=== PATIENT | female | born 1970 | race Caucasian/White ===

== ENCOUNTER 2017-03-28 10:05 | Emergency (ER) | payer MEDICAID, SELFPAY | END 2017-03-28 11:39 | disposition home or self-care (01) | PROVIDERS: Emergency Provider Nurse Practitioner; Visit Provider Nurse Practitioner | DX: J06.9 Acute upper respiratory infection, unspecified (principal) | CPT/HCPCS: 71020; 99201 ==

== ENCOUNTER → 2017-04-25 08:47 | Outpatient (CLI) | payer MEDICAID, SELFPAY ==
--- NOTE | 2017-04-25 08:51 | FL_ITS ---
FL upper GI w air HISTORY: ITS.REASON: HIATAL HERNIA ORDERING PHYSICIAN: You Baeza PATIENT AGE: 46 years COMPARISON: Previous chest CT of 10/27/2016 FINDINGS: There is a large hiatal hernia which contains most of the stomach. No obstruction is evident. No evidence of volvulus. No ulcer apparent.. FLUOROSCOPY TIME : 2 minutes and 22 seconds. IMPRESSION: Large left-sided diaphragmatic/hiatal hernia containing stomach. No acute finding.
== END ==
PROVIDERS: Family Provider Internal Medicine Adolescent Medicine; PCP Internal Medicine Adolescent Medicine; Visit Provider Surgery
DX: K44.9 Diaphragmatic hernia without obstruction or gangrene (principal)
CPT/HCPCS: 74247

== ENCOUNTER 2017-05-08 06:58 | Day surgery (SDC) | payer MEDICAID, SELFPAY ==
[2017-05-08] VITALS (9 sets, daily range): BP systolic 96–131; BP diastolic 50–81; PULSE 60–69; RESP 16–95; TEMP 36.5–36.7; O2SAT 90–98; BMI 31.4
--- NOTE | 2017-05-08 08:00 | HMH.SCOPE ---
- Procedure: Date: 05/08/17 Procedure Performed:: Esophagogastroduodenoscopy with biopsy Indications:: This is a 46-year-old female who has been referred to Dr. Bola Baeza at the [facility] for evaluation and management of a large symptomatic hiatal hernia. She presents for preoperative esophagogastroduodenoscopy. Performing Provider:: Mendoza Augustine MD Referring Provider:: Drs. Jean Carlos Adams and Bola Baeza Sedation:: IV sedation with 7 mg of Versed and 150 mcg of fentanyl Procedure:: After informed consent was obtained, the patient was taken to the endoscopy suite. IV sedation ensued after she was transferred to the left lateral decubitus position. The gastroscope was advanced. The gastroesophageal junction was at 34 cm. The stomach was entered. Minimal streaking gastritis was noted distally and a biopsy was obtained of the antrum. Retroflexion revealed a fairly large paraesophageal defect. Essentially no sliding component was noted, but the defect was adjacent to the gastroesophageal junction. No significant abnormality of the mucosa was noted within the proximal stomach. The pylorus was intubated. The duodenal mucosa appeared normal. The gastroscope was carefully removed and the patient was transferred to recovery. Findings:: Gastroesophageal junction at 34 cm Fairly large paraesophageal hernia with defect adjacent to the gastroesophageal junction Minimal streaking inflammation distally Specimens:: Antral biopsy Recommendations:: The patient will follow up in 1 week for review of pathology. The patient will follow up with Dr. Baeza for ongoing operative planning. Complications:: No immediate Estimated blood obtained (mL): 1
== END 2017-05-08 08:30 | disposition home or self-care (01) ==
LOC: OUTP 07:01
PROVIDERS: Family Provider Internal Medicine Adolescent Medicine; PCP Internal Medicine Adolescent Medicine; Visit Provider Surgery
PROC: 0DJ08ZZ Inspection of Upper Intestinal Tract, Via Natural or Artificial Opening Endoscopic (ICD-10-PCS; CPT 43235; principal; 2017-05-08 07:30)
DX: K44.9 Diaphragmatic hernia without obstruction or gangrene (principal); K29.70 Gastritis, unspecified, without bleeding
CPT/HCPCS: 43239; 94640; 99152

== ENCOUNTER → 2017-07-07 12:36 | Outpatient (CLI) | payer MEDICAID, SELFPAY ==
--- NOTE | 2017-07-07 | CT_ITS ---
CT abdomen pelvis w con CLINICAL INDICATION: Abdominal distention ITS.REASON: POST HERNIA REPAIR ORDERING PHYSICIAN: Sonia Jerez PATIENT AGE: 47 years COMPARISON: Radiograph of the same day, CT scan of 03/11/2009 TECHNIQUE: Axial images obtained with sagittal and coronal reformats. All CT scans at the facility use one or more dose reduction, viz: automated exposure control; ma/kV adjustment per patient size (including targeted exams where dose is matched to indication; i.e. head); or iterative reconstruction technique. PROCEDURE: IV Contrast: 75 mL's of Isovue-370 performed in conjunction with the chest CT Oral Contrast: None . FINDINGS: History is given of recent hernia repair. There is a moderate sized left-sided pleural effusion and may be somewhat loculated in the lung base. Loculated fluid is present posterior to the heart and a small amount of gas. These effusions account for the radiographic abnormality. The gas present within the collection posterior to the heart may be postsurgical. This does not have a typical appearance for an abscess. There is some fat density in the pleural space is well which could be from the previous surgery. A definite hernia is not identified. A PEG catheter is present. There has been prior cholecystectomy. The liver, spleen, adrenal glands, and pancreas are unremarkable. No intestinal obstruction or free air. There are some fluid-filled loops of small bowel lower abdomen and pelvis nonspecific. Small amount of subcutaneous gas is present within the abdominal wall and left lower quadrant likely residual from the previous surgery. There is a small amount fluid in the pelvis. There is some mild stranding of the mesenteric fat in the mid abdomen. This is nonspecific. IMPRESSION: 1. Status post left-sided diaphragmatic hernia repair and PEG tube placement. 2. Mild stranding of the fat in the left upper quadrant and midabdomen nonspecific and may be postsurgical in nature. Underlying inflammatory process cannot be excluded. 3. Small amount of residual soft tissue gas in the abdominal wall. 4. Moderate size left-sided pleural effusion with loculated fluid and small amount of gas posterior to the heart probably secondary to the previous hernia repair.
--- NOTE | 2017-07-07 12:48 | XR_ITS ---
XR chest 2V HISTORY: ITS.REASON: COUGH, FEVER,CHILLS, CP, S/P DIAPHRAGMATIC HERNIA REPAIR ORDERING PHYSICIAN: Sonia Jerez PATIENT AGE: 47 years COMPARISON: 03/28/2017 FINDINGS: There is increased density in the left lung base and may be related to residual elevated hemidiaphragm/hernia somewhat smaller than when compared to the previous exam. History is given as hernia repair and this may be related to postsurgical changes. Small amount of gas is present in this density in the left lower lungs. Please correlate with surgical history.. Consolidation is present in the left upper lobe anteriorly consistent with pneumonia. The right lung is clear. No acute bony anomalies. IMPRESSION: 1. Left upper lobe pneumonia. 2. Continued elevated left hemidiaphragm consistent with residual hernia versus postsurgical changes. Please correlate with surgical history. A small amount gas is present in this region which could be related to bowel postsurgical change versus underlying abscess. Chest CT with contrast may be of further value if clinically warranted
[2017-07-07 13:02] LABS: Basophils # 0.1 K/mm3 (0-0.2); Basophils % 0.4 % (0.1-2.0); Eosinophils # 0.3 K/mm3 (0.0-0.4); Eosinophils % 2.1 % (0.1-12.0); Hematocrit 44.3 % (37.0-47.0); Hemoglobin 14.3 g/dL (12.2-16.2); Lymphocytes # 1.2 K/mm3 (0.7-4.5); Lymphocytes % 9.4 K/mm3 (10-50); Mean Corpuscular HGB Conc 32.3 g/dL (31.8-35.4); Mean Corpuscular Hemoglobin 30.2 pg (27.0-31.2); Mean Corpuscular Volume 93.4 fl (81-99); Mean Platelet Volume 9.7 fl (7.4-10.4); Monocytes # 0.9 K/mm3 (0.1-1.0); Monocytes % 6.7 % (1.7-9.3); Neutrophils # 10.7 K/mm3 (1.8-7.8); Neutrophils % 81.4 % (37.0-80.0); Platelet Count 398 K/mm3 (142-424); Red Blood Count 4.75 M/mm3 (4.20-5.40); White Blood Count 13.1 K/mm3 (4.8-10.8)
[2017-07-07 13:37] LABS: D-Dimer 2480 ng/mL (0-400)
[2017-07-07 14:28] LABS: Anion Gap 13.5 mEq/L (5-15); Blood Urea Nitrogen 11 mg/dL (7-18); Carbon Dioxide 30 mmol/L (21.0-32.0); Chloride 100 mmol/L (98-107); Creatinine,Serum 1.07 mg/dL (0.55-1.02); Estimated Glomerular Filt Rate 55 ml/min (>60); GFR (African American) 66 ML/MIN (>60); Glucose 100 mg/dL (74-106); Potassium 4.5 mmoL/L (3.5-5.1); Sodium 139 mmol/L (136-145)
--- NOTE | 2017-07-07 14:40 | CT_ITS ---
CT angio chest HISTORY: Left-sided chest pain, recent surgery ITS.REASON: COUGH, CHEST PAIN ORDERING PHYSICIAN: Sonia Jerez PATIENT AGE: 47 years TECHNIQUE: Axial images obtained following the administration of 75 mL of Isovue 370 . Sagittal, and coronal reformatted images are also generated and reviewed. All CT scans at the facility use one or more dose reduction, viz: automated exposure control; ma/kV adjustment per patient size (including targeted exams where dose is matched to indication; i.e. head); or iterative reconstruction technique. COMPARISON: 10/27/2016 FINDINGS: No evidence of aortic aneurysm or dissection. No obvious pulmonary embolus. There is a large left-sided pleural effusion. There is a 1.8 cm spiculated nodule in the left upper lobe. There are scattered small nodular opacities in both lungs which could represent metastatic process or multiple inflammatory/infectious nodules. Increased soft tissue density is present in the left suprahilar region which is contiguous with the left upper lobe spiculated nodule consistent with adenopathy in the left hilum. The consolidation or volume loss in the left upper lobe medially has shown some very left. There does however remain consolidation in the left upper lobe centrally emanating from the left hilum. There are calcified nodes in the subcarinal region. Right hilar adenopathy is also noted.. IMPRESSION: 1. No evidence of pulmonary embolus or aortic aneurysm. 2. Left upper lobe 2 cm spiculated lesion associated with bilateral hilar adenopathy suspicious for lung cancer with hilar adenopathy. There are multiple small bilateral pulmonary nodules some of which are somewhat more prominent suspicious for metastatic disease. An infectious/inflammatory process is an additional consideration. Left upper lobe consolidation/volume loss also noted 3. Large left-sided pleural effusion
== END ==
PROVIDERS: PCP Internal Medicine Adolescent Medicine; Visit Provider Nurse Practitioner Family
DX: R07.9 Chest pain, unspecified (principal); R05 Cough; R50.9 Fever, unspecified; N28.9 Disorder of kidney and ureter, unspecified; Z87.19 Personal history of other diseases of the digestive system; Z98.890 Other specified postprocedural states; R79.89 Other specified abnormal findings of blood chemistry
CPT/HCPCS: 36415; 71046; 71275; 74177; 80048; 85025; 85378; Q9967

== ENCOUNTER → 2017-07-08 12:02 | Outpatient (POV) | payer MEDICAID, SELFPAY | PROVIDERS: Family Provider Internal Medicine Adolescent Medicine; PCP Internal Medicine Adolescent Medicine; Visit Provider Internal Medicine | DX: Z00.00 Encounter for general adult medical examination without abnormal findings (principal) ==

== ENCOUNTER → 2017-07-10 14:38 | Outpatient (CLI) | payer MEDICAID, SELFPAY ==
--- NOTE | 2017-07-10 14:41 | XR_ITS ---
XR chest 2V HISTORY: ITS.REASON: PLEURAL EFFUSION LEFT ORDERING PHYSICIAN: Sonia Jerez PATIENT AGE: 47 years COMPARISON: 07/07/2017 FINDINGS: Moderate size left-sided subpulmonic effusion once again noted with increasing density in the left lower lobe consistent with developing atelectasis or infiltrate. The effusion is slightly increased in size. The right lung is clear. Unremarkable cardiovascular structures. IMPRESSION: Moderate left-sided subpulmonic effusion increasing in size with left lower lobe atelectasis or infiltrate
== END ==
PROVIDERS: PCP Nurse Practitioner Family; Visit Provider Nurse Practitioner Family
DX: J90 Pleural effusion, not elsewhere classified (principal)
CPT/HCPCS: 71046

== ENCOUNTER → 2017-08-12 12:40 | Outpatient (POV) | payer MEDICAID, SELFPAY | PROVIDERS: Family Provider Internal Medicine Adolescent Medicine; PCP Nurse Practitioner Family; Visit Provider Internal Medicine | DX: Z00.00 Encounter for general adult medical examination without abnormal findings (principal) ==

== ENCOUNTER → 2017-10-06 09:35 | Outpatient (CLI) | payer MEDICAID, SELFPAY ==
[2017-10-06 10:40] VITALS: PULSE 71; PULSE 75
== END ==
PROVIDERS: Family Provider Internal Medicine Adolescent Medicine; PCP Nurse Practitioner Family; Visit Provider Internal Medicine
DX: J44.9 Chronic obstructive pulmonary disease, unspecified (principal)
CPT/HCPCS: 94060; 94640; 94726; 94729

== ENCOUNTER → 2017-11-13 09:31 | Outpatient (CLI) | payer MEDICAID, SELFPAY ==
--- NOTE | 2017-11-13 09:38 | XR_ITS ---
XR chest 2V HISTORY: ITS.REASON: COUGH, COPD, HX PLEURAL EFFUSION ORDERING PHYSICIAN: Sonia Jerez PATIENT AGE: 47 years COMPARISON: 07/10/2017 FINDINGS: The heart size is normal. Patchy density is present in the suprahilar region on both sides with prominence of the left hilum. Suspect a left hilar mass. Previously noted left pleural effusion is no longer apparent. There is however increased density in the left lung base abutting the hemidiaphragm and may be related to loculated effusion or mass or diaphragmatic elevation.. CT with contrast may be of further value. Please correlate with patient's history. There is COPD. No acute bony anomalies. IMPRESSION: Abnormal chest x-ray with prominent left hilum suspicious for hilar mass with suprahilar infiltrate on the left and possibly on the right along with increased density in the left lung base which could be related to hernia, mass, or loculated effusion. Consider chest and upper abdomen CT with IV and oral contrast
== END ==
PROVIDERS: PCP Internal Medicine Adolescent Medicine; Visit Provider Nurse Practitioner Family
DX: R05 Cough (principal); J44.9 Chronic obstructive pulmonary disease, unspecified; Z87.09 Personal history of other diseases of the respiratory system
CPT/HCPCS: 71046

== ENCOUNTER → 2018-03-10 12:26 | Outpatient (CLI) | payer MEDICAID, SELFPAY ==
[2018-03-10 13:14] LABS: Hemoglobin A1C 5.5 % (0.0-7.0)
[2018-03-10 14:50] LABS: Alanine Aminotransferase 38 U/L (12-78); Albumin Level 3.2 gm/dL (3.4-5.0); Alkaline Phosphatase 107 U/L (46-116); Anion Gap 12.2 mEq/L (5-15); Aspartate Amino Transferase 24 U/L (15-37); Bilirubin,Total 0.2 mg/dL (0.2-1.0); Blood Urea Nitrogen 6 mg/dL (7-18); Carbon Dioxide 30 mmol/L (21.0-32.0); Chloride 104 mmol/L (98-107); Estimated Glomerular Filt Rate 67 ml/min (>60); GFR (African American) 81 ML/MIN (>60); Globulin 3.2 gm/dl (1.3-3.2); Glucose 119 mg/dL (74-106); Potassium 4.2 mmoL/L (3.5-5.1); Sodium 142 mmol/L (136-145); Total Protein,Serum 6.4 gm/dL (6.4-8.2)
== END ==
PROVIDERS: PCP Nurse Practitioner Family; Visit Provider Internal Medicine Adolescent Medicine
DX: R35.8 Other polyuria (principal)
CPT/HCPCS: 36415; 80053; 83036

== ENCOUNTER → 2018-06-11 08:42 | Outpatient (CLI) | payer MEDICAID, SELFPAY ==
--- NOTE | 2018-06-11 08:44 | MM_ITS ---
MM Dig screening mamm BI w/CAD ORDERING PHYSICIAN : Shannon Germain MD PATIENT AGE: 48 years GENDER: Female COMPARISON: Bilateral mammogram studies from December 2013, October 2012 & 2011. INDICATION: .: Routine Screening Mammogram no hormones. No new complaints. Additional history of sarcoidosis noted. Family history. Maternal niece at age 25. paternal grandmother TECHNIQUE: Standard CC and MLO images were obtained. R2 CAD reviewed. Additional CC nipple profile views bilaterally along with a left MLO view including IMF FINDINGS: . . Low-density breast. Minimal residual Fibroglandular elements bilaterally. Moderate diffuse fatty replacement. No dominant nor suspicious mass. No suspicious calcifications. Benign calcifications left breast similar to previous studies. No new areas of significant concern. Areas of minimal density on one view dissipate on another in compatible with multiple previous studies.. Normal skin thickness. Bilaterally IMPRESSION: Stable negative bilateral mammogram. Low-density breast with no areas of concern. BI-RADS Category: 1 Negative RECOMMENDED FOLLOW-UP: 1YR 1 YEAR FOLLOW-UP (A letter has been sent to the patient regarding results of the study.)
== END ==
PROVIDERS: PCP Nurse Practitioner Family; Visit Provider Obstetrics & Gynecology
DX: Z12.31 Encounter for screening mammogram for malignant neoplasm of breast (principal)
CPT/HCPCS: 77067

== ENCOUNTER → 2018-06-29 11:44 | Outpatient (CLI) | payer MEDICAID, SELFPAY ==
--- NOTE | 2018-06-29 11:48 | XR_ITS ---
XR chest 2V HISTORY: ITS.REASON: COUGH, FEVER, CHILLS ORDERING PHYSICIAN: Sonia Jerez PATIENT AGE: 48 years Technique: PA and lateral chest COMPARISON: 11/13/2017 & 07/10/2017 FINDINGS: RIGHT CHEST Today's study shows additional density at the right suprahilar region and medial right upper lobe. Infiltrate density becomes most pronounced just inferior to the right clavicle on the frontal projection with given history this most likely a pneumonia but follow-up chest will be important to verify resolution exclude underlying lesion of the infiltrate obscures the right suprahilar region.. Suggest follow-up CT chest if is not been performed elsewhere over the past 2 or 3 months, particularly view suspect history of of left chest lesion.. My history was today was very incomplete but I would note Evidence of bilateral hilar adenopathy on previous June 2017 CT chest No pleural effusion on the right. The right ribs are intact LEFT CHEST. Postsurgical changes left lung. A long curvilinear line of yun/material seen extending from the upper to be lower mid lung field. No new findings otherwise at left chest. The previously prominent left jose appears smaller today than than 11/13/2017. Also a densities at the periphery of the left upper lobe no longer evident. No pleural effusions no significant new findings at the left chest. The left chest wall appears satisfactory. No pleural effusion no acute findings observed of the left chest. There is less than optimal inspiration with diaphragms of anterior fourth fifth rib bilaterally. Also note generous gas is seen within bowel loops at the upper abdomen mainly generous gas and large bowel loops but also some slight increased gas throughout small bowel. IMPRESSION...... 1. New Airspace disease right suprahilar region/RUL. This infiltrate & atelectasis extends from the right suprahilar region into the medial aspect of RUL Most likely reflecting pneumonia, but follow-up will be important to exclude underlying lesion. 2. Follow-up CT with contrast would be encouraged particularly with this patient's history, & particularly if this infiltrate density 3. Postsurgical changes left lung since October 2017. With this Left jose is smaller & seen density previously seen at L UL no longer evident . , When compared to Oct 2017 CXR.
== END ==
PROVIDERS: PCP Nurse Practitioner Family; Visit Provider Nurse Practitioner Family
DX: R05 Cough (principal); R50.9 Fever, unspecified
CPT/HCPCS: 71046

== ENCOUNTER → 2018-09-25 11:24 | Outpatient (CLI) | payer MEDICAID, SELFPAY ==
--- NOTE | 2018-09-25 11:31 | XR_ITS ---
XR chest 2V HISTORY: ITS.REASON: BRONCHITIS ORDERING PHYSICIAN: Rishi Alcantara MD PATIENT AGE: 48 years COMPARISON: 06/29/2018. FINDINGS: The cardiomediastinal silhouette and pulmonary vascularity are within normal limits. Stable left lung linear densities. There has been clearing of the density from the right suprahilar area. Right lung is now clear.. There is no pleural effusion or pneumothorax. No acute bony abnormalities. IMPRESSION: Interval clearing of the right suprahilar density. Left lung scar is still present. No other change or acute process.
== END ==
PROVIDERS: PCP Internal Medicine Adolescent Medicine; Visit Provider Internal Medicine Adolescent Medicine
DX: J40 Bronchitis, not specified as acute or chronic (principal)
CPT/HCPCS: 71046

== ENCOUNTER → 2018-10-12 09:30 | Outpatient (CLI) | payer MEDICAID, SELFPAY ==
--- NOTE | 2018-10-12 09:33 | CT_ITS ---
CT abdomen pelvis wo/w con CLINICAL INDICATION: Hematuria with frequent urination ITS.REASON: HEMATURIA ORDERING PHYSICIAN: Archie Majano MD PATIENT AGE: 48 years COMPARISON: 07/07/2017 TECHNIQUE: Contrast Used:75ml Optiray 350 Oral Contrast: None Axial images obtained without and with contrast with delayed images with sagittal and coronal reformats. All CT scans at the facility use one or more dose reduction, viz: automated exposure control, ma/kV adjustment per patient size (including targeted exams where dose is matched to indication, i.e. head), or iterative reconstruction technique. FINDINGS: There are mild atelectatic or fibrotic changes in the lung bases. Bowel interposition is noted on the right. There are postcholecystectomy changes. The spleen, adrenal glands, and pancreas have an unremarkable appearance. No renal or ureteral calculi. No hydronephrosis or ureteral dilatation. There is an isodensity involving the posterior aspect of the right kidney at 10 mm and may represent a renal cyst. This could be confirmed with ultrasound if clinically warranted this is slightly larger than when compared to 07/07/2017 at that time measuring 8 mm. No perinephric fluid collection. Urinary bladder has an unremarkable appearance. Unremarkable appendix. No intestinal obstruction or free air. There is a mild amount of retained colonic feces. There are fluid-filled loops of small bowel with a few scattered air-fluid levels nonspecific but could be seen with enteritis. No pelvic mass abnormal fluid collection or focal inflammatory change of the pelvis. There are mild degenerative changes of the hips and spine. IMPRESSION: 1. 10 mm isodense lesion right kidney which may be due to a small cyst slightly larger when compared to 07/07/2017. Cystic nature may be confirmed with ultrasound if clinically desired. The kidneys have an otherwise unremarkable appearance. 2. Mild amount of retained colonic feces with fluid-filled loops of small bowel nonspecific but may be seen with enteritis.
== END ==
PROVIDERS: PCP Nurse Practitioner Family; Visit Provider Urology
DX: R31.0 Gross hematuria (principal)
CPT/HCPCS: 74178; Q9967

== ENCOUNTER 2018-10-27 08:56 | Outpatient (CLI) | payer MEDICAID, SELFPAY ==
[2018-10-26 10:14] VITALS: BMI 37.8
[2018-10-27 09:25] VITALS: BP 119/72; PULSE 68; RESP 18; TEMP 36.6; O2SAT 95
[2018-10-27 10:54] VITALS: BP 121/77; PULSE 91; RESP 18; TEMP 36.5; O2SAT 96
--- NOTE | 2018-10-27 13:07 | HMH.OPNOTE ---
Date of procedure: 10/27/18 Pre-op Diagnosis:: Mixed urinary incontinence Post-op Diagnosis:: Mixed urinary incontinence with hypermobility of the bladder neck Procedure performed:: Flexible local cystoscopy Surgeon:: Archie Majano MD Anesthesia: local Estimated blood loss (mL): 0 Clinical Note:: Patient is here for cystoscopy for evaluation of mixed urinary incontinence. She was recently seen and given apples of Myrbetriq 25 mg. She states that that markedly improved her urgency symptoms. She still unfortunately has incontinence. She is here today for cystoscopy for further evaluation. He also had microscopic hematuria. Operative findings:: Genuine stress urinary incontinence secondary to hypermobility of the bladder neck Operative note:: Patient was placed in the supine position and frog leg. Genital area was prepped and draped in standard fashion. Xylocaine jelly was instilled. With Valsalva she has moderate cystourethrocele and hyper mobility. The flexible cystoscope was introduced. She had no significant cystocele endoscopically. Ureteral orifice ease were situated in the normal position and appeared to effluxed clear urine. Entire bladder mucosa was inspected. No evidence of bladder tumors. Bladder was filled and cystoscopy completed. 10. With cough she demonstrated a large amount of leakage and hypermobility of the bladder neck. Condition: stable Disposition: same day Complications:: None. We will increase her Myrbetriq to 50 mg. She will follow-up in 1 week to discuss potential treatment options including a suburethral sling.
== END 2018-10-27 11:01 | disposition home or self-care (01) ==
LOC: OUTP 08:56
PROVIDERS: PCP Nurse Practitioner Family; Visit Provider Urology
PROC: (CPT 52000; principal; 2018-10-27 10:00)
DX: N36.41 Hypermobility of urethra (principal); N39.46 Mixed incontinence
CPT/HCPCS: 52000

== ENCOUNTER → 2019-03-31 10:43 | Outpatient (CLI) | payer OTHER, SELFPAY | PROVIDERS: Visit Provider Internal Medicine Adolescent Medicine | DX: T14.8XXA Other injury of unspecified body region, initial encounter (principal) ==

== ENCOUNTER → 2019-04-15 11:22 | Outpatient (CLI) | payer OTHER, SELFPAY | PROVIDERS: Visit Provider Internal Medicine Adolescent Medicine | DX: R19.7 Diarrhea, unspecified (principal) | CPT/HCPCS: 87493 ==

== ENCOUNTER → 2019-09-16 11:41 | Outpatient (CLI) | payer OTHER, SELFPAY ==
--- NOTE | 2019-09-16 11:48 | XR_ITS ---
PROCEDURE: XR SHOULDER RT MIN 2V CLINICAL INDICATION: RT SHOULDER PAIN COMPARISON: No exams were available for comparison FINDINGS: The clavicle is intact and the AC joint appears normal. However there is a markedly down-sloping acromion process resulting in subacromial stenosis and a likely predisposition to impingement syndrome. The humeral head and glenoid appear normal. There are no soft tissue calcifications. 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 Sumeet Boswell MD 09/16/2019 13:[address] Sumeet Boswell MD in [place] 09/16/2019 13:45
== END ==
PROVIDERS: PCP Nurse Practitioner Family; Visit Provider Nurse Practitioner Family
DX: M25.511 Pain in right shoulder (principal)
CPT/HCPCS: 73030

== ENCOUNTER → 2019-09-22 13:44 | Outpatient (CLI) | payer OTHER, SELFPAY | PROVIDERS: PCP Nurse Practitioner Family; Visit Provider Nurse Practitioner Family | DX: G47.30 Sleep apnea, unspecified (principal); G47.00 Insomnia, unspecified; R51 Headache; I10 Essential (primary) hypertension | CPT/HCPCS: 95806 ==

== ENCOUNTER → 2019-09-30 10:24 | Outpatient (CLI) | payer OTHER, SELFPAY | PROVIDERS: PCP Nurse Practitioner Family; Visit Provider Nurse Practitioner Family | DX: I49.9 Cardiac arrhythmia, unspecified (principal) | CPT/HCPCS: 93225; 93226 ==

== ENCOUNTER 2019-10-18 15:00 | Outpatient (RCR) | payer OTHER, SELFPAY ==
--- NOTE | 2019-09-22 13:52 | HMH.OTOPEV ---
OT Inpatient Evaluation Rehab OT Outpatient Eval Start: 09/22/19 13:15 Freq: Status: Active Protocol: Document 09/22/19 13:16 WILL (Rec: 09/22/19 13:52 WILL [id number]) Electronically Signed By Shannon Urbano OT 09/22/19 13:16 Outpatient Therapy Subjective History Subjective History 49 year old female referred to OP OT services for R shoulder pain. Patient stated having R shoulder pain for the past month. Patient recieved x-ray on 09/16/19 finding were: Subacromial stenosis with findings suggesting a predisposition to impingement syndrome. Chief Complaint Pain Symptom Type Ache,Throb Symptoms Relieved By Nothing Symptoms Aggravated By Physical Activity Prior Functional Limitations None Current Functional Limitations Reaching,Lifting,Dressing Symptom Description Intermittent Level of pain today (0-10) 3 Pain scale - at its best (0-10) 3 Pain scale - at its worst (0-10) 5 Shoulder/Elbow Eval Shoulder Objective Measurements Shoulder ROM Right Shoulder Abduction Active Range of 98 Motion (degrees) Shoulder Flexion Active Range of Motion 120 (degrees) Query Text: Shoulder External Rotation Active Range 90 of Motion (degrees) Shoulder Internal Rotation Active Range 70 of Motion (degrees) pain with active ROM shoulder exam right standard Shoulder MMT Shoulder Horizontal Abduction Strength 3 Fair Grade Shoulder Horizontal Adduction Strength 3 Fair Grade Shoulder External Rotation Strength 3 Fair Grade Shoulder Internal Rotation Strength 3 Fair Grade Shoulder Special Tests impingement sign present shoulder exam right standard Shoulder Drop Arm Test Negative Right Shoulder Empty Can (Supraspinatus) Test Positive Right Shoulder Villarreal-Nico Impingement Positive Right Test Elbow Objective Measurements OT Outpatient Assessment Impairments Problems/Impairments Impaired Range of Motion, Impaired Strength,Impaired Endurance,Impaired Lifting, Subjective C/O Pain Prognosis Rehab Potential Good Clinical Impression Consistent with Diagnosis Yes Short Term Goals Number of Weeks 3 Increase Range of Motion
== END 2019-10-18 15:05 | disposition home or self-care (01) ==
LOC: OT 15:00
PROVIDERS: Visit Provider Nurse Practitioner Family
DX: M25.511 Pain in right shoulder (principal)
CPT/HCPCS: 97014; 97033; 97035; 97110; 97165; 97530; G0283

== ENCOUNTER → 2019-11-18 10:45 | Outpatient (CLI) | payer OTHER, SELFPAY ==
--- NOTE | 2019-11-18 10:46 | MM_ITS ---
PROCEDURE: MM DIG SCREENING MAMM BI W/CAD Digital Breast Tomosynthesis Included CLINICAL INDICATION: Routine Screening Mammogram There is a history of breast cancer patient's niece and paternal grandmother. COMPARISON: [facility] DIG MAMM-SCREEN MILA from 11/20/2012 MG [facility] DIG MAMM-SCREEN MILA from 01/05/2014 [facility] MM Dig screening mamm BI w/CAD from 06/11/2018 TECHNIQUE: Standard MLO and CC views were obtained along with tomosynthesis views and CAD FINDINGS: There has been some progressive fatty involution of the breast parenchyma when compared to previous 2 studies. Minimal scattered fibroglandular densities are seen in both breast on a background of primarily fatty breast parenchyma. There are couple of benign-appearing microcalcifications in each breast. There is no suspicious lesion in either breast and no suspicious microcalcifications. IMPRESSION: Fibrofatty parenchyma with no suspicious lesions seen BI-RAD Category: 2 Benign Finding(s) FOLLOW-UP: 1YR 1 Year Follow-up (A letter has been sent to the patient regarding results of the study.) Dictated by: Dr. Sumeet Boswell MD 11/19/2019 10:12 Dr. Sumeet Boswell MD in [place] 11/19/2019 10:12
== END ==
PROVIDERS: PCP Nurse Practitioner Family; Visit Provider Obstetrics & Gynecology
DX: Z12.31 Encounter for screening mammogram for malignant neoplasm of breast (principal)
CPT/HCPCS: 77063; 77067

== ENCOUNTER → 2020-01-10 23:10 | Outpatient (CLI) | payer MEDICARE, MEDICAID, SELFPAY ==
[2020-01-11 09:47] LABS: Adenovirus F 40/41, stool Not Detected (NotDetected); Astrovirus Not Detected (NotDetected); Campylobacter Not Detected (NotDetected); Clostridium Difficile A/B, PCR Not Detected (NotDetected); Cryptosporidium Not Detected (NotDetected); Cyclospora Cayetanesis Not Detected (NotDetected); Entamoeba histolytica Not Detected (NotDetected); Enteroaggregative E coli Not Detected (NotDetected); Enteropathogenic E coli Not Detected (NotDetected); Enterotoxigenic E coli Not Detected (NotDetected); Giardia lamblia Not Detected (NotDetected); Norovirus Not Detected (NotDetected); Plesimonas Shigalloides, PCR Not Detected (NotDetected); Rotavirus A Not Detected (NotDetected); Salmonella, PCR Not Detected (NotDetected); Sapovirus Not Detected (NotDetected); Shiga-like toxin E coli Not Detected (NotDetected); Shigella Enterovasive E coli Not Detected (NotDetected); Vibrio Cholerae Not Detected (NotDetected); Vibrio, PCR Not Detected (NotDetected); Yersinia Entercolitica, PCR Not Detected (NotDetected)
== END ==
PROVIDERS: Visit Provider Internal Medicine Adolescent Medicine
DX: R19.7 Diarrhea, unspecified (principal)
CPT/HCPCS: 87506

== ENCOUNTER → 2020-02-01 11:51 | Outpatient (CLI) | payer MEDICARE, MEDICAID, SELFPAY ==
[2020-02-01 11:53] LABS: Adenovirus F 40/41, stool Not Detected (NotDetected); Astrovirus Not Detected (NotDetected); Campylobacter Not Detected (NotDetected); Clostridium Difficile A/B, PCR Not Detected (NotDetected); Cryptosporidium Not Detected (NotDetected); Cyclospora Cayetanesis Not Detected (NotDetected); Entamoeba histolytica Not Detected (NotDetected); Enteroaggregative E coli Not Detected (NotDetected); Enteropathogenic E coli Not Detected (NotDetected); Enterotoxigenic E coli Not Detected (NotDetected); Giardia lamblia Not Detected (NotDetected); Norovirus Not Detected (NotDetected); Plesimonas Shigalloides, PCR Not Detected (NotDetected); Rotavirus A Not Detected (NotDetected); Salmonella, PCR Not Detected (NotDetected); Sapovirus Not Detected (NotDetected); Shiga-like toxin E coli Not Detected (NotDetected); Shigella Enterovasive E coli Not Detected (NotDetected); Vibrio Cholerae Not Detected (NotDetected); Vibrio, PCR Not Detected (NotDetected); Yersinia Entercolitica, PCR Not Detected (NotDetected)
== END ==
PROVIDERS: Visit Provider Surgery
DX: R19.7 Diarrhea, unspecified (principal)
CPT/HCPCS: 87506

== ENCOUNTER → 2020-02-01 14:24 | Outpatient (CLI) | payer MEDICARE, MEDICAID, SELFPAY ==
[2020-02-01 22:31] LABS: Adenovirus,PCR Not Detected (NotDetected); Bordetella Pertussis Not Detected (NotDetected); Chlamydophila Pneumoniae, PCR Not Detected (NotDetected); Coronavirus 229E Not Detected (NotDetected); Coronavirus NL63 Not Detected (NotDetected); Coronavirus OC43 Not Detected (NotDetected); Coronovirus HKU1,PCR Not Detected (NotDetected); Human Metapneumovirus Not Detected (NotDetected); Influenza A, PCR Not Detected (NotDetected); Influenza AH1, 2009 Not Detected (NotDetected); Influenza AH1, PCR Not Detected (NotDetected); Influenza AH3,PCR Not Detected (NotDetected); Influenza B, PCR Not Detected (NotDetected); Mycoplasma Pneumoniae, PCR Not Detected (NotDetected); Parainfluenza 1, PCR Not Detected (NotDetected); Parainfluenza 2, PCR Not Detected (NotDetected); Parainfluenza 3, PCR Not Detected (NotDetected); Parainfluenza 4, PCR Not Detected (NotDetected); Respiratory Syncytial Virus Not Detected (NotDetected)
[2020-02-02 00:01] LABS: Coronavirus 19, PCR Detected (NotDetected); Rhinovirus/Enterovirus Detected (NotDetected)
== END ==
PROVIDERS: PCP Nurse Practitioner Family; Visit Provider Nurse Practitioner Family
DX: B34.1 Enterovirus infection, unspecified; R50.9 Fever, unspecified; R05 Cough; A04.8 Other specified bacterial intestinal infections; Z20.828 Contact with and (suspected) exposure to other viral communicable diseases; U07.1 COVID-19
CPT/HCPCS: 87506; 87581; 87633; 87798; U0003

== ENCOUNTER 2020-02-08 10:10 | Inpatient (IN) | payer MEDICARE, OTHER, SELFPAY ==
[2020-02-08] VITALS (14 sets, daily range): BP systolic 88–127; BP diastolic 41–70; PULSE 44–83; RESP 16–24; TEMP 36.2–37.2; O2SAT 88–99; BMI 30.9; BMI 32.9; BMI 36.0
--- NOTE | 2020-02-08 10:40 | HMH.EDUTC ---
[facility] [place] Impression: Shortness of breath Disposition: Still a Patient Condition on Discharge: Fair Referrals: Sonia Jerez APRN [Primary Care Provider] - Time of Disposition: 13:48 Medical Decision Making - Javon Inquiry Pt receiving controlled substance: No Javon was queried for this patient: No Vital Signs: 02/08/20 10:26 02/08/20 10:53 02/08/20 11:10 Temperature 98.1 F 98.6 F Temperature Source Oral Oral Pulse Rate 81 Pulse Rate [Right Brachial] 81 67 Respiratory Rate 18 22 16 Blood Pressure 88/63 L Blood Pressure [Right Arm] 103/61 L 96/57 L Blood Pressure Mean [Right Arm] 75 70 Blood Pressure Source [Right Arm] Automatic Cuff Automatic Cuff Blood Pressure Position [Right Arm] Supine Sitting 02 Sat by Pulse Oximetry 88 L 93 L Oxygen Delivery Method Room Air Room Air Oxygen Flow Rate (LPM) 02/08/20 11:30 02/08/20 12:00 02/08/20 12:32 Temperature 98.2 F Temperature Source Oral Pulse Rate Pulse Rate [Right Brachial] 71 77 82 Respiratory Rate 22 24 18 Blood Pressure Blood Pressure [Right Arm] 91/56 L 89/41 L 100/45 L Blood Pressure Mean [Right Arm] 67 57 63 Blood Pressure Source [Right Arm] Automatic Cuff Automatic Cuff Automatic Cuff Blood Pressure Position [Right Arm] Sitting Sitting Supine 02 Sat by Pulse Oximetry 93 L 92 L 94 L Oxygen Delivery Method Room Air Room Air Nasal Cannula Oxygen Flow Rate (LPM) 2 02/08/20 12:57 02/08/20 13:30 Temperature Temperature Source Pulse Rate Pulse Rate [Right Brachial] 83 73 Respiratory Rate 21 Blood Pressure Blood Pressure [Right Arm] 96/54 L 100/60 L Blood Pressure Mean [Right Arm] 68 73 Blood Pressure Source [Right Arm] Automatic Cuff Automatic Cuff Blood Pressure Position [Right Arm] Sitting Sitting 02 Sat by Pulse Oximetry 93 L 99 Oxygen Delivery Method Room Air Room Air Oxygen Flow Rate (LPM) Orders (Tests/Meds): ED MEDICATIONS Generic Name Dose Route Start Last Admin Trade Name Freq PRN Reason Stop Dose Admin Lactated Ringer's 1,000 mls @ 999 mls/hr 02/08/20 12:45 Lactated Ringer's 1000 Ml Bag IV 02/08/20 13:45 .Q1H1M JOSEPH Azithromycin 500 mg/ Sodium 250 mls @ 250 mls/hr 02/08/20 12:45 02/08/20 12:52 Chloride IV 02/22/20 12:44 250 mls/hr Q24H JOSEPH Administration Protocol Discontinued Medications Generic Name Dose Route Start Last Admin Trade Name Reinierq PRN Reason Stop Dose Admin Albuterol/Ipratropium 3 ml 02/08/20 11:25 02/08/20 12:20 Albuterol/Ipratropium 3 Ml Neb 02/08/20 11:26 Not Given ONCE ONE Albuterol/Ipratropium 2 puff 02/08/20 12:20 02/08/20 12:21 Combivent 20mcg/100mcg Respimat Inhaler 02/08/20 12:21 2 puff ONCE ONE Administration Dexamethasone Sodium Phosphate 10 mg 02/08/20 11:25 02/08/20 11:42 Dexamethasone 4mg/Ml 5ml Mdv IV 02/08/20 11:26 10 mg ONCE ONE Administration Sodium Chloride 1,000 mls @ 999 mls/hr 02/08/20 11:30 Sod Chlor 0.9% 1000ml Bag IV 02/08/20 12:30 .Q1H1M JOSEPH Ceftriaxone Sodium 1 gm/ 50 mls @ 100 mls/hr 02/08/20 12:35 02/08/20 12:46 Sodium Chloride IV 02/08/20 13:04 100 mls/hr ONCE ONE Administration Protocol Iopamidol 75 ml 02/08/20 13:00 02/08/20 13:01 Iopamidol-370 (76%); 50ml Vial IV 02/08/20 13:01 75 ml ONCE ONE Administration Sodium Chloride 10 ml 02/08/20 13:00 02/08/20 13:01 Sodium Chloride 0.9% 10ml Syr (Rad Only) IV 02/08/20 13:01 10 ml ONCE ONE Administration ORDERS Category Date Time Status BMP [Basic Metabolic Panel] Stat Lab 02/08/20 12:32 Ordered CBC [Complete Blood Count Auto Diff] Stat Lab 02/08/20 12:32 Ordered Lactic Acid Stat Lab 02/08/20 12:36 Ordered Blood Culture Stat Micro 02/08/20 12:37 Ordered Medical Decision Narrative: Patient states that she isn't feeling well and doesnt feel right she is now also feeling dizzy States that her head feels like it is going to explode and just d
--- NOTE | 2020-02-08 10:52 | XR_ITS ---
PROCEDURE: XR CHEST PORTABLE CLINICAL HISTORY: shortness of breath COVID 19 positive COMPARISON: CT [facility]GCHE[facility] CT angio chest from 07/07/2017 CR CXR2V XR chest 2V from 07/10/2017 CR CXR2V XR chest 2V from 11/13/2017 CR CXR2V XR chest 2V from 06/29/2018 FINDINGS: There is normal heart size. The right hilum is prominent. Patchy density is present in the left lower lobe consistent with an area of atelectasis or infiltrate. Infiltrate is also present in the right lower lobe. Bowel interposition is present on the right. No acute bony abnormalities. IMPRESSION: Bilateral lower lobe pneumonia with right hilar mass or adenopathy. Dictated by: Broderick Olmos MD 02/08/2020 12:25 Broderick Olmos MD in [place] 02/08/2020 12:25
--- NOTE | 2020-02-08 11:20 | PC.NURSE ---
Pt vitals 1107 02/08/2020 BP 80/40 Pulse 92 Resp 24 O2 80 room Air Pt stated that she did not feel right and c/o dizziness. Pt sent to ER for evaluation.
--- NOTE | 2020-02-08 11:21 | HMH.EDGENADL ---
ED Disposition Clinical Impression: Shortness of breath Disposition: Still a Patient Condition on Discharge: Fair - Critical Care Critical Care Time: No Attestation: On 02/08/20, the high probability of a clinically significant, sudden or life threatening deterioration of the following system(s) required my full and direct attention, intervention and personal management. The time I documented below is in addition to time spent performing reported procedures but includes the following listed in this critical care notation. Medical Decision Making - Javon Inquiry Pt receiving controlled substance: No Vital Signs: 02/08/20 10:26 02/08/20 10:53 02/08/20 11:10 Temperature 98.1 F 98.6 F Temperature Source Oral Oral Pulse Rate 81 Pulse Rate [Right Brachial] 81 67 Respiratory Rate 18 22 16 Blood Pressure 88/63 L Blood Pressure [Right Arm] 103/61 L 96/57 L Blood Pressure Mean [Right Arm] 75 70 Blood Pressure Source [Right Arm] Automatic Cuff Automatic Cuff Blood Pressure Position [Right Arm] Supine Sitting 02 Sat by Pulse Oximetry 88 L 93 L Oxygen Delivery Method Room Air Room Air Oxygen Flow Rate (LPM) 02/08/20 11:30 02/08/20 12:00 02/08/20 12:32 Temperature 98.2 F Temperature Source Oral Pulse Rate Pulse Rate [Right Brachial] 71 77 82 Respiratory Rate 22 24 18 Blood Pressure Blood Pressure [Right Arm] 91/56 L 89/41 L 100/45 L Blood Pressure Mean [Right Arm] 67 57 63 Blood Pressure Source [Right Arm] Automatic Cuff Automatic Cuff Automatic Cuff Blood Pressure Position [Right Arm] Sitting Sitting Supine 02 Sat by Pulse Oximetry 93 L 92 L 94 L Oxygen Delivery Method Room Air Room Air Nasal Cannula Oxygen Flow Rate (LPM) 2 02/08/20 12:57 02/08/20 13:30 02/08/20 14:05 Temperature Temperature Source Pulse Rate Pulse Rate [Right Brachial] 83 73 80 Respiratory Rate 21 Blood Pressure Blood Pressure [Right Arm] 96/54 L 100/60 L 93/47 L Blood Pressure Mean [Right Arm] 68 73 62 Blood Pressure Source [Right Arm] Automatic Cuff Automatic Cuff Automatic Cuff Blood Pressure Position [Right Arm] Sitting Sitting Sitting 02 Sat by Pulse Oximetry 93 L 99 96 Oxygen Delivery Method Room Air Room Air Nasal Cannula Oxygen Flow Rate (LPM) 2 - Lab Data Lab Results 02/08/20 11:15: WBC 9.0, RBC 4.87, Hgb 15.3, Hct 47.9 H, MCV 98.4, MCH 31.4 H, MCHC 31.9, RDW 16.1, Plt Count 222, MPV 9.1, Neut % (Auto) 84.4 H, Lymph % (Auto) 12.7, [place] % (Auto) 2.5, Eos % (Auto) 0.2, Baso % (Auto) 0.2, Neut # (Auto) 7.6, Lymph # (Auto) 1.1, [place] # (Auto) 0.2, Eos # (Auto) 0.0, Baso # (Auto) 0.0 02/08/20 11:15: Sodium 142, Potassium 3.3 L, Chloride 102, Carbon Dioxide 33 H, Anion Gap 10.3, BUN 13, Creatinine 1.00, Estimated Creat Clear 93, Estimated GFR 59, Est GFR ( Amer) 71, Glucose 107 H, Calcium 9.4 02/08/20 14:00: Chlamy pneumoniae PCR Not detected, Adenovirus (PCR) Not detected, B. pertussis DNA (PCR) Not detected, Coronavirus OC43 (PCR) Not detected, Coronavirus HKU1 (PCR) Not detected, Coronavirus 229E (PCR) Not detected, SARS-CoV-2 (PCR) Detected A, Coronavirus NL63 (PCR) Not detected, Human Metapneumovir PCR Not detected, Influenza A (H1) PCR Not detected, Influ A (H1N1/09) PCR Not detected, Influenza A (H3) PCR Not detected, Influenza Type A (PCR) Not detected, Influenza Type B (PCR) Not detected, M. pneumoniae (PCR) Not detected, Parainfluenza 1 (PCR) Not detected, Parainfluenza 2 (PCR) Not detected, Parainfluenza 3 (PCR) Not detected, Parainfluenza 4 (PCR) Not detected, RSV (PCR) Not detected, Entero/Rhino (PCR) Not detected 02/08/20 14:08: Specimen Source R radial, O2 % 1lpm, ABG pH 7.42, ABG pCO2 33.8 L, ABG pO2 71.1 L, ABG HCO3 21.6 L, ABG Total CO2 22.6 L, ABG O2 Saturation 95, ABG Base Excess -2.8 L, Broderick Test Acceptable 11/10/20 14:39: Lactate 1.7 Result diagrams: 02/09/20 04:50 02/09/20 04:50 Orders (Tests/Meds): ED MEDICATIONS Discontinued Medications Generic Name Do
--- NOTE | 2020-02-08 11:30 | PC.NURSE ---
RT at bedside
--- NOTE | 2020-02-08 12:33 | CT_ITS ---
PROCEDURE: CT CHEST W CON CLINICAL HISTORY: pna Shortness of breath, testing positive for Covid COMPARISON: CR XR CHEST PORTABLE from 02/08/2020 TECHNIQUE: Axial images obtained with sagittal and coronal reformats. All CT scans at the facility use one or more dose reduction, viz: automated exposure control, ma/kV adjustment per patient size (including targeted exams where dose is matched to indication, i.e. head), or iterative reconstruction technique. FINDINGS: The lung watters are well expanded. There is minimal ground-glass opacity somewhat ill-defined anterior segment right upper lobe. There is more prominent and diffuse primarily ground-glass opacity in the right perihilar region and superior segment right lower lobe. There is similar diffuse ground-glass opacities in the lateral basilar and posterior basilar segments of the left lower lobe. Cardiac size is normal. The pulmonary vascularity is normal. There is no right hilar mass. There multiple calcified subcarinal and left hilar nodes. There are mild multilevel degenerate changes of the thoracic spine. IMPRESSION: Diffuse bilateral somewhat ill-defined ground-glass opacities consistent with acute pneumonic infiltrates and likely secondary to COVID Dictated by: Dr. Sumeet Boswell MD 02/08/2020 13:14 Dr. Sumeet Boswell MD in [place] 02/08/2020 13:14
--- NOTE | 2020-02-08 13:43 | PC.NURSE ---
JOSE LUIS HARRIS speaking with Dr Hercules at this time.
--- NOTE | 2020-02-08 13:47 | PC.NURSE ---
Spoke with Manjula in case management she is aware of admission.
[2020-02-08 14:01] LABS: Basophils % 0.2 % (0.1-2.0); Chloride 102 mmol/L (98-107); Eosinophils % 0.2 % (0.1-12.0); Hematocrit 47.9 % (37.0-47.0); Hemoglobin 15.3 g/dL (12.2-16.2); Lymphocytes # 1.1 K/mm3 (0.7-4.5); Lymphocytes % 12.7 % (10-50); Mean Corpuscular HGB Conc 31.9 g/dL (31.8-35.4); Mean Corpuscular Hemoglobin 31.4 pg (27.0-31.2); Mean Corpuscular Volume 98.4 fl (81-99); Mean Platelet Volume 9.1 fl (7.4-10.4); Monocytes # 0.2 K/mm3 (0.1-1.0); Monocytes % 2.5 % (1.7-9.3); Neutrophils # 7.6 K/mm3 (1.8-7.8); Neutrophils % 84.4 % (37.0-80.0); Platelet Count 222 K/mm3 (142-424); Potassium 3.3 mmoL/L (3.5-5.1); Red Blood Count 4.87 M/mm3 (4.20-5.40); Red Cell Distribution Width 16.1 % (11.5-17.5); Sodium 142 mmol/L (136-145)
[2020-02-08 14:04] LABS: Anion Gap 10.3 mEq/L (5-15); Blood Urea Nitrogen 13 mg/dl (7-17); Calcium 9.4 mg/dl (8.4-10.2); Carbon Dioxide 33 mmol/L (22.0-30.0); Creatinine Clearance Estimated 93 mL/min (50-200); Estimated Glomerular Filt Rate 59 ml/min (>60); GFR (African American) 71 ML/MIN (>60); Glucose 107 mg/dl (74-100)
[2020-02-08 14:10] LABS: ABG Base Excess -2.8 mmol/L (-2.4-2.3); ABG HCO3 21.6 mmhg (22.0-26.0); ABG Oxygen Saturation 95 % (90-100); ABG PCO2 33.8 mmhg (35.0-45.0); ABG PH 7.42 mmol/L (7.35-7.45); ABG PO2 71.1 mmhg (80-100); ABG TCO2 22.6 mmhg (23-27)
[2020-02-08 14:11] LABS: Allen's Test ACCEPTABLE; Oxygen 1LPM %; Source R RADIAL
[2020-02-08 14:13] LABS: Adenovirus,PCR Not Detected (NotDetected); Bordetella Pertussis Not Detected (NotDetected); Chlamydophila Pneumoniae, PCR Not Detected (NotDetected); Coronavirus 229E Not Detected (NotDetected); Coronavirus NL63 Not Detected (NotDetected); Coronavirus OC43 Not Detected (NotDetected); Coronovirus HKU1,PCR Not Detected (NotDetected); Human Metapneumovirus Not Detected (NotDetected); Influenza A, PCR Not Detected (NotDetected); Influenza AH1, 2009 Not Detected (NotDetected); Influenza AH1, PCR Not Detected (NotDetected); Influenza AH3,PCR Not Detected (NotDetected); Influenza B, PCR Not Detected (NotDetected); Mycoplasma Pneumoniae, PCR Not Detected (NotDetected); Parainfluenza 1, PCR Not Detected (NotDetected); Parainfluenza 2, PCR Not Detected (NotDetected); Parainfluenza 3, PCR Not Detected (NotDetected); Parainfluenza 4, PCR Not Detected (NotDetected); Respiratory Syncytial Virus Not Detected (NotDetected); Rhinovirus/Enterovirus Not Detected (NotDetected)
[2020-02-08 14:55] LABS: Lactic Acid 1.7 mmol/L (0.7-2.1)
[2020-02-08 15:35] LABS: Coronavirus 19, PCR Detected (NotDetected)
--- NOTE | 2020-02-08 15:43 | P.CONPHA_ITS ---
[facility] Pharmacy VTE Monitoring - Patient Demographics Admission date: 02/08/20 Report Date: 02/08/20 Time: 15:43 Allergies/Adverse Reactions: Patient Allergies nickel Allergy (Mild, Verified 02/08/20 10:39) Rash Height: 1.63 m Weight: 87.09 kg Patient Problems: Current Active Problems Shortness of breath (Acute) - VTE Risk Labs: VTE Related Lab Results Hgb 15.3 g/dL (12.2-16.2) 02/08/20 11:15 Hct 47.9 % (37.0-47.0) H 02/08/20 11:15 Plt Count 222 K/mm3 (142-424) 02/08/20 11:15 BUN 13 mg/dl (7-17) 02/08/20 11:15 Creatinine 1.00 mg/dl (0.52-1.04) 02/08/20 11:15 Estimated Creat Clear 93 mL/min (50-200) 02/08/20 11:15 Was VTE Risk Assessment Performed: Yes VTE Score: 4 VTE Risk Level: Low Risk - Prophylaxis VTE Prophylaxis Ordered?: Yes Types of VTE Prophylaxis: TEDS Knee High, Pharmacological Location of Applied Device: Bilateral Lower Extremeties Pharmacologic Type: Enoxaparin
--- NOTE | 2020-02-08 16:13 | HMH.PHAINT ---
HOME MEDICATION RECONCILIATION COMPLETED USING LIST FROM CLINIC PHARMACY
--- NOTE | 2020-02-08 17:02 | HMH.HP ---
*Admission Date: 02/08/20 *Chief complaint: shortness of breath, weakness. *History of present illness: Sundeep is a 49-year-old female with history of COPD, sarcoidosis, chronic immune suppression obesity, hypertension. She presented to the ER after initially going to the [facility] due to worsening shortness of breath. Shortness of breath has been worsening over the past week since her diagnosis on 02/01/2020 with COVID-19. On initial assessment, was sent for chest x-ray from the [facility]. After getting her chest x-ray, she stated she was quite dizzy and fatigued. Noted to be hypotensive. Sent to the ER for further assessment. CT of her chest was obtained at that time showing diffuse bilateral infiltrates consistent with pneumonia. Also noted to be hypoxemic with a saturation of 88%. On interview, she states she has had fever of up to 102 over the past week. Worsening GI symptoms with loose stools and nausea. Fatigue, cough that is nonproductive, and slept for almost 2 days. Admitted to medicine for further management of her acute hypoxemic respiratory failure in the setting of Covid pneumonia. Admitted to the isolation unit/ICU for further management [facility] History I have reviewed the patient's past medical history: Yes Medical History: Reports:: Asthma, Chronic Obstructive Pulmonary Disease (COPD), Hiatal Hernia, Lung Disease, Migraine, Palpitations Denies:: Cancer, Diabetes Mellitus Type 1, Diabetes Mellitus Type 2, Internal Pacemaker, MRSA, Seizures *Have you ever received a pneumonia vaccine?: Yes *Have you received a flu vaccine this season?: No Other Medical History: Reports: Arthritis, Hoarseness. Denies: Blood Transfusion Reaction Laterality Cases: Left: Carpal Tunnel Release, Right: Arthroscopy Knee, Bilateral: Tonsillectomy, Other Other Surgeries: Yes: Appendectomy, Cholecystectomy, Colonoscopy, Hernia Repair, Other (Bladder tuck). No: Pacemaker Amputation: No Fractures: No - *Social History Last grade of school completed: High school graduate Smoking Status: Former smoker Tobacco Type: cigarettes #Yrs smoked (if former smoker): 2 Alcohol Intake: never Alcohol Intake Frequency:: other Substance Use Type: denies use *Occupational Status:: disabled Housing: house Household Members: none *Travel in the last 8 weeks: None Family Hx:: No significant family history Review of Systems - Review of Systems Review of systems:: pertinent systems reviewed and negative unless documented below (14 point review of systems performed, pertinent positives and negatives as per HPI) - *Neurologic Reports dizziness, Reports headache(s) Meds Home Medications Medication Instructions Recorded Confirmed Type albuterol sulfate 90 mcg/actuation 2 puffs INHALATION Q4HP PRN #18 g 02/05/19 02/08/20 History aerosol inhaler tiotropium 2.5 mcg-olodaterol 2.5 2 puff INHALATION DAILY 02/22/19 02/08/20 History mcg/actuation mist for inhalation dicyclomine 20 mg tablet 20 mg PO TID tab 11/18/19 02/08/20 History omeprazole 20 mg capsule,delayed 20 mg PO DAILY cap 11/18/19 02/08/20 History release prednisone 20 mg tablet 20 mg PO DAILY tab 11/18/19 02/08/20 History bisoprolol fumarate 5 mg tablet 2.5 mg PO DAILY 01/31/20 02/08/20 History folic acid 1 mg tablet 1 mg PO DAILY 01/31/20 02/08/20 History Benzonatate [Benzonatate 200mg Cap] 200 mg PO TIDP PRN 02/08/20 02/08/20 History Umeclidinium Brm/Vilanterol Tr 1 inh IH DAILY 02/08/20 02/08/20 History [Anoro Ellipta 62.5-25 Mcg INH] metHOTREXate sodium [metHOTREXate 2.5 mg PO WEEKLY 02/08/20 02/08/20 History 2.5mg Tablet] Allergies Allergy/AdvReac Type Severity Reaction Status Date / Time nickel Allergy Mild Rash Verified 02/08/20 10:39 Exam Vital signs and Labs for Last 24 Hours: Temp Pulse Resp BP Pulse Ox 98.2 F 80 21 93/47 L 96 02/08/20 12:32 02/08/20 14:05 02/08/20 13:30 02/08/20 14:05 02/08/20 14:05 Laboratory Results - last 24 hr 02/08/20 11:15: WBC 9
--- NOTE | 2020-02-08 21:41 | PC.NURSE ---
She is in contact and airborne precautions. She is A&Ox4. Denies pain. Denies nausea, vomiting, and diarrhea today. States she had diarrhea on 02/07/20. She reports that she uses the BSC to void and calls out for assistance. Reports non-productive cough. She is aware of the need for a sputum specimen and the cup is at the bedside. She is on 1LPM n/c. Crackles noted in her right base. She denies SOA at rest but reports SOA with exertion. TEDS in place. Purse and home medications placed in closet.
--- NOTE | 2020-02-08 23:02 | PC.NURSE ---
Bradycardia noted while sleeping.
[2020-02-09] VITALS (7 sets, daily range): BP systolic 110–161; BP diastolic 53–77; PULSE 40–70; RESP 18–23; TEMP 36.2–36.7; O2SAT 91–95; BMI 36.8
[2020-02-09 05:29] LABS: Chloride 108 mmol/L (98-107); Potassium 3.8 mmoL/L (3.5-5.1); Sodium 141 mmol/L (136-145)
[2020-02-09 05:32] LABS: Alanine Aminotransferase 12 U/L (12-78); Albumin Level 3.1 g/dl (3.5-5.0); Albumin/Globulin Ratio 1.1 (1.1-1.8); Alkaline Phosphatase 68 U/L (38-126); Anion Gap 8.8 mEq/L (5-15); Aspartate Amino Transferase 23 U/L (14-36); Bilirubin,Total 0.3 mg/dl (0.2-1.3); Blood Urea Nitrogen 10 mg/dl (7-17); Carbon Dioxide 28 mmol/L (22.0-30.0); Creatinine Clearance Estimated 136 mL/min (50-200); Estimated Glomerular Filt Rate 89 ml/min (>60); GFR (African American) 107 ML/MIN (>60); Globulin 2.7 g/dL (1.3-3.2); Total Protein,Serum 5.8 g/dl (6.3-8.2)
[2020-02-09 05:33] LABS: Calcium 8.8 mg/dl (8.4-10.2); Glucose 110 mg/dl (74-100)
[2020-02-09 05:38] LABS: C-Reactive Protein 43.9 mg/L (0-4)
[2020-02-09 05:55] LABS: Procalcitonin 0.044 ng/mL (0.0-2.0)
[2020-02-09 07:01] LABS: Basophils % 0.2 % (0.1-2.0); Eosinophils % 0.2 % (0.1-12.0); Hematocrit 38.4 % (37.0-47.0); Lymphocytes # 0.6 K/mm3 (0.7-4.5); Lymphocytes % 12.6 % (10-50); Mean Corpuscular HGB Conc 31.3 g/dL (31.8-35.4); Mean Corpuscular Volume 96.1 fl (81-99); Mean Platelet Volume 8.8 fl (7.4-10.4); Monocytes # 0.2 K/mm3 (0.1-1.0); Monocytes % 4.4 % (1.7-9.3); Neutrophils # 4.1 K/mm3 (1.8-7.8); Neutrophils % 82.6 % (37.0-80.0); Platelet Count 205 K/mm3 (142-424); Red Blood Count 3.99 M/mm3 (4.20-5.40); Red Cell Distribution Width 15.9 % (11.5-17.5)
--- NOTE | 2020-02-09 07:43 | HMH.ACPN2 ---
Internal Medicine - PN: Subj *Date: 02/09/20 *Time: 07:43 Interval history: Patient did well overnight except for some desaturation when she gets up and goes to the bedside commode. Coughing up small amounts of clear sputum. Exam Vital signs and Labs for Last 24 Hours: Temp Pulse Resp BP Pulse Ox 97.3 F L 45 L 18 161/76 H 94 L 02/09/20 04:00 02/09/20 04:00 02/09/20 04:00 02/09/20 04:00 02/09/20 04:00 Laboratory Results - last 24 hr 02/08/20 11:15: WBC 9.0, RBC 4.87, Hgb 15.3, Hct 47.9 H, MCV 98.4, MCH 31.4 H, MCHC 31.9, RDW 16.1, Plt Count 222, MPV 9.1, Neut % (Auto) 84.4 H, Lymph % (Auto) 12.7, [place] % (Auto) 2.5, Eos % (Auto) 0.2, Baso % (Auto) 0.2, Neut # (Auto) 7.6, Lymph # (Auto) 1.1, [place] # (Auto) 0.2, Eos # (Auto) 0.0, Baso # (Auto) 0.0 02/08/20 11:15: Sodium 142, Potassium 3.3 L, Chloride 102, Carbon Dioxide 33 H, Anion Gap 10.3, BUN 13, Creatinine 1.00, Estimated Creat Clear 93, Estimated GFR 59, Est GFR ( Amer) 71, Glucose 107 H, Calcium 9.4 02/08/20 14:00: Chlamy pneumoniae PCR Not detected, Adenovirus (PCR) Not detected, B. pertussis DNA (PCR) Not detected, Coronavirus OC43 (PCR) Not detected, Coronavirus HKU1 (PCR) Not detected, Coronavirus 229E (PCR) Not detected, SARS-CoV-2 (PCR) Detected A, Coronavirus NL63 (PCR) Not detected, Human Metapneumovir PCR Not detected, Influenza A (H1) PCR Not detected, Influ A (H1N1/09) PCR Not detected, Influenza A (H3) PCR Not detected, Influenza Type A (PCR) Not detected, Influenza Type B (PCR) Not detected, M. pneumoniae (PCR) Not detected, Parainfluenza 1 (PCR) Not detected, Parainfluenza 2 (PCR) Not detected, Parainfluenza 3 (PCR) Not detected, Parainfluenza 4 (PCR) Not detected, RSV (PCR) Not detected, Entero/Rhino (PCR) Not detected 02/08/20 14:08: Specimen Source R radial, O2 % 1lpm, ABG pH 7.42, ABG pCO2 33.8 L, ABG pO2 71.1 L, ABG HCO3 21.6 L, ABG Total CO2 22.6 L, ABG O2 Saturation 95, ABG Base Excess -2.8 L, Broderick Test Acceptable 02/08/20 14:39: Lactate 1.7 02/09/20 04:50: WBC 5.0 D, RBC 3.99 L, Hgb 12.0 L D, Hct 38.4, MCV 96.1, MCH 30.0, MCHC 31.3 L, RDW 15.9, Plt Count 205, MPV 8.8, Neut % (Auto) 82.6 H, Lymph % (Auto) 12.6, [place] % (Auto) 4.4, Eos % (Auto) 0.2, Baso % (Auto) 0.2, Neut # (Auto) 4.1, Lymph # (Auto) 0.6 L, [place] # (Auto) 0.2, Eos # (Auto) 0.0, Baso # (Auto) 0.0 02/09/20 04:50: Sodium 141, Potassium 3.8, Chloride 108 H, Carbon Dioxide 28, Anion Gap 8.8, BUN 10, Creatinine 0.70 D, Estimated Creat Clear 136, Estimated GFR 89, Est GFR ( Amer) 107 D, Glucose 110 H, Calcium 8.8, Total Bilirubin 0.3, AST 23, ALT 12, Alkaline Phosphatase 68, C-Reactive Protein 43.9 H, Total Protein 5.8 L, Albumin 3.1 L, Globulin 2.7, Albumin/Globulin Ratio 1.1 02/09/20 04:50: Procalcitonin 0.044 I & O for Last 24 hours: Intake & Output 02/06/20 02/07/20 02/08/20 02/09/20 11:59 11:59 11:59 11:59 Intake Total 1414 / 1414 Output Total 1500 / 1500 Balance -86 / -86 Weight 192 lb 200 lb Narrative: Patient is alert, pleasant, oriented x3. Some rhonchi with minimal end expiratory wheezing but good air movement. Heart rate regular. O2 saturations 90% on 2 L nasal cannula at rest. No clubbing, edema or cyanosis. Neurologically intact. Assessment and Plan (1) Acute hypoxemic respiratory failure due to COVID-19 Status: Acute Category: Medical Code(s): U07.1 - COVID-19; J96.01 - Acute respiratory failure with hypoxia (2) Pneumonia due to COVID-19 virus Status: Acute Category: Medical Code(s): U07.1 - COVID-19; J12.89 - Other viral pneumonia (3) Hypertension Status: Chronic Qualifiers: Hypertension type: essential hypertension Qualified Code(s): I10 - Essential (primary) hypertension Category: Medical Code(s): I10 - Essential (primary) hypertension (4) COPD (chronic obstructive pulmonary disease) Status: Chronic Category: Medical Code(s): J44.9 - Chronic obstructive pulmonary disease, unspecified
--- NOTE | 2020-02-09 17:37 | PC.NURSE ---
Patient is alert and oriented x4. Patient is up at liberty with no restrictions. Patient uses the bedside commode. She has had x2 bowel movements today both were small in size. Patient has no complaints of pain. Lung sounds are coarse crackles. She has had a cough all day with small amounts of sputum production. Patient has been alex at times on telemetry with heart rate running in the 50's. She is currently wearing TEDS and using Lovenox per protocol. Patients O2 has been stable at 94% on 2L. Patient has been very pleasant to be around. Will continue to monitor.
[2020-02-10] VITALS: PULSE 41
--- NOTE | 2020-02-10 00:05 | PC.NURSE ---
Pt A&OX4. lungs diminished throughout. 02 sats 93-95% on 2L NC. pt denies pain. Sinus alex on tele. pt voids per bsc independently. pt resting quietly @ this time call isiah aguilera
[2020-02-10 04:00] VITALS: BP 126/71; PULSE 40; PULSE 59; RESP 18; TEMP 36.3; O2SAT 94
[2020-02-10 05:00] VITALS: BMI 34.9
[2020-02-10 06:26] VITALS: O2SAT 95
--- NOTE | 2020-02-10 07:52 | HMH.DCSUM ---
General - General Admission date:: 02/08/20 Discharge date: 02/10/20 HPI HPI: Sundeep is a 49-year-old female with history of COPD, sarcoidosis, chronic immune suppression obesity, hypertension. She presented to the ER after initially going to the [facility] due to worsening shortness of breath. Shortness of breath has been worsening over the past week since her diagnosis on 02/01/2020 with COVID-19. On initial assessment, was sent for chest x-ray from the [facility]. After getting her chest x-ray, she stated she was quite dizzy and fatigued. Noted to be hypotensive. Sent to the ER for further assessment. CT of her chest was obtained at that time showing diffuse bilateral infiltrates consistent with pneumonia. Also noted to be hypoxemic with a saturation of 88%. On interview, she states she has had fever of up to 102 over the past week. Worsening GI symptoms with loose stools and nausea. Fatigue, cough that is nonproductive, and slept for almost 2 days. Admitted to medicine for further management of her acute hypoxemic respiratory failure in the setting of Covid pneumonia. Admitted to the isolation unit/ICU for further management Hospital Course Hospital Course: Patient was admitted, placed in isolation unit placed on 2 L nasal cannula oxygen and begun on standard bacterial pneumonia and currently accepted COVID-19 antiviral and steroid therapy. Patient stabilized and felt better over the next 24 hours and since that time has been without dyspnea except with exertion when she walks around the room. She has had no fever, cough has been minimal. We changed her inhaler regimen to Combivent with as needed albuterol to help her with short-term dyspnea and wheezing and also did Flovent twice daily while in hospital. This seemed to help her. This morning she is doing well, comfortable on 2 L nasal cannula oxygen. She does drop below 90% when she is off oxygen or moves about the room. Given her improvement, length of time since diagnosis and her desire to be discharged we will discharge her today, continue antibiotic therapy and dexamethasone therapy. Continue oxygen therapy at home and do inhalers as noted on the discharge reconciliation form until Friday when she comes back to the office and we will reassess ongoing therapy for her asthma/chronic bronchitis. Objective Vital signs: Temp Pulse Resp BP Pulse Ox 97.4 F L 59 L 18 126/71 95 02/10/20 04:00 02/10/20 04:00 02/10/20 04:00 02/10/20 04:00 02/10/20 06:26 no acute distress, obese Comments: Wearing oxygen, sat 93% - *Routine HEENT Exam Head: Present: normocephalic Eye: Present: EOMI, PERRL ENT: Present: mucous membranes moist - *Routine Neck Exam Present: supple - *Routine Respiratory Exam Present: other (Good air movement, very minimal expiratory wheezing when I asked patient to blow harshly, otherwise clear) - *Routine Cardiovascular Exam Present: RRR - *Routine Abdominal Exam Present: soft, normoactive bowel sounds. Absent: tenderness - *Routine Extremities Exam Absent: cyanosis, clubbing, edema - *Routine Skin Exam Present: warm. Absent: rash - Detailed Eye Exam Eyelids: Bilateral normal inspection DS: Diagnosis - Discharge Diagnosis (1) Acute hypoxemic respiratory failure due to COVID-19 Status: Resolved (2) Pneumonia due to COVID-19 virus Status: Acute (3) Hypertension Status: Chronic (4) COPD (chronic obstructive pulmonary disease) Status: Chronic (5) Sarcoidosis Status: Chronic (6) Obesity (BMI 30-39.9) Status: Chronic Discharge Plan - Patient Discharge Instructions ACTIVITY: Limited activity DIET: continue same diet Patient Instructions: Pneumonia-Adult, DI for Shortness of Breath, Preventing the Spread of Coronavirus Discharge Instructions - Follow up Plan Follow up with: Sonia Jerez APRN [Primary Care Provider] - Disposition: Home, Self-Senior Living Medications: Home Medication
[2020-02-10 07:58] VITALS: O2SAT 86
[2020-02-10 08:00] VITALS: BP 113/66; PULSE 70; PULSE 76; RESP 18; TEMP 35.8; O2SAT 88; O2SAT 90
--- NOTE | 2020-02-10 08:39 | SW/DCPLANNER ---
SET UP HOME 02 FOR THIS PATIENT WHOM IS DISCHARGING HOME TODAY... A PORTABLE WILL BE DELIVERED TO THE HOSPITAL PRIOR TO PATIENT DISCHARGING....
== END 2020-02-10 11:25 | disposition home or self-care (01) | DRG 177 ==
LOC: ER 10:21 → UTC 10:22 → ER 11:14 → ICU 14:04
PROVIDERS: Admitting Provider Internal Medicine Adolescent Medicine; Emergency Provider Physician Assistant; PCP Nurse Practitioner Family; Visit Provider Internal Medicine Adolescent Medicine
DX: U07.1 COVID-19 (principal); J12.89 Other viral pneumonia; J96.01 Acute respiratory failure with hypoxia; I10 Essential (primary) hypertension; J44.9 Chronic obstructive pulmonary disease, unspecified; D86.9 Sarcoidosis, unspecified; Z79.51 Long term (current) use of inhaled steroids; Z79.899 Other long term (current) drug therapy
CPT/HCPCS: 71045; 71260; 80048; 80053; 82803; 83605; 84145; 85025; 86140; 87040; 87070; 87205; 87581; 87633; 87798; 94640; 94760; 99291; J0456; Q9967

== ENCOUNTER → 2020-02-21 09:38 | Outpatient (CLI) | payer MEDICARE, OTHER, SELFPAY ==
--- NOTE | 2020-02-21 | CA_ITS ---
APPROVED REPORT Right Lower Extremity Venous Study for DVT. Outcomes Specialist: DIMITRI Indications Lower Extremity Pain: Right Patient denies trauma. States right lower extremity has been hurting since hospital stay a few weeks ago. She notes a bruise on her medial mid calf that recently appeared with no injury. Risk Factors Immobility History of Smoking Patient was recently hospitalized with COVID 19. Vein Imaging CFV (R): compressive, spontaneous, phasic, augmentation FEM (R): compressive, spontaneous, phasic, augmentation POP (R): compressive, spontaneous, phasic, augmentation PTV (R): Compressible GSV (R): Compressible SSV (R): Compressible Peroneals (R):Compressible GAS (R): compressive, spontaneous, phasic, augmentation Findings No evidence of DVT or superficial thrombophlebitis in the veins scanned of the right lower extremity. Electronically signed by : Broderick Olmos MD 02/21/2020 17:17:59
== END ==
PROVIDERS: PCP Nurse Practitioner Family; Visit Provider Nurse Practitioner Family
DX: M79.604 Pain in right leg (principal)
CPT/HCPCS: 93971

== ENCOUNTER → 2020-05-23 13:08 | Outpatient (CLI) | payer MEDICARE, MEDICAID, SELFPAY ==
[2020-05-23 13:57] LABS: Basophils % 0.3 % (0.1-2.0); Eosinophils # 0.1 K/mm3 (0.0-0.4); Eosinophils % 0.4 % (0.1-12.0); Hemoglobin 15.2 g/dL (12.2-16.2); Lymphocytes # 1.5 K/mm3 (0.7-4.5); Lymphocytes % 13.8 % (10-50); Mean Corpuscular Hemoglobin 31.6 pg (27.0-31.2); Mean Corpuscular Volume 102.2 fl (81-99); Mean Platelet Volume 9.3 fl (7.4-10.4); Monocytes # 0.4 K/mm3 (0.1-1.0); Monocytes % 3.5 % (1.7-9.3); Neutrophils # 8.8 K/mm3 (1.8-7.8); Platelet Count 325 K/mm3 (142-424); Red Blood Count 4.79 M/mm3 (4.20-5.40); Red Cell Distribution Width 14.8 % (11.5-17.5); White Blood Count 10.8 K/mm3 (4.8-10.8)
[2020-05-23 14:28] LABS: Chloride 105 mmol/L (98-107); Potassium 4.5 mmoL/L (3.5-5.1); Sodium 140 mmol/L (136-145)
[2020-05-23 14:30] LABS: Blood Urea Nitrogen 10 mg/dl (7-17); Estimated Glomerular Filt Rate 58 ml/min (>60); GFR (African American) 71 ML/MIN (>60)
[2020-05-23 14:31] LABS: Alanine Aminotransferase 25 U/L (12-78); Albumin Level 4.2 g/dl (3.5-5.0); Albumin/Globulin Ratio 1.6 (1.1-1.8); Alkaline Phosphatase 101 U/L (38-126); Anion Gap 8.5 mEq/L (5-15); Aspartate Amino Transferase 37 U/L (14-36); Bilirubin,Total 0.5 mg/dl (0.2-1.3); Calcium 10.1 mg/dl (8.4-10.2); Carbon Dioxide 31 mmol/L (22.0-30.0); Globulin 2.7 g/dL (1.3-3.2); Glucose 118 mg/dl (74-100); Total Protein,Serum 6.9 g/dl (6.3-8.2)
[2020-05-26 18:37] LABS: Angiotensin Converting Enzyme 54 U/L (14-82)
== END ==
PROVIDERS: Visit Provider Internal Medicine
DX: J43.9 Emphysema, unspecified
CPT/HCPCS: 36415; 80053; 82164; 85025

== ENCOUNTER → 2020-06-10 09:45 | Outpatient (CLI) | payer MEDICARE, MEDICAID, SELFPAY ==
[2020-06-10 10:41] LABS: Basophils # 0.1 K/mm3 (0-0.2); Basophils % 0.4 % (0.1-2.0); Eosinophils # 0.1 K/mm3 (0.0-0.4); Eosinophils % 0.7 % (0.1-12.0); Hematocrit 46.2 % (37.0-47.0); Hemoglobin 14.7 g/dL (12.2-16.2); Lymphocytes # 2.4 K/mm3 (0.7-4.5); Lymphocytes % 21.4 % (10-50); Mean Corpuscular HGB Conc 31.8 g/dL (31.8-35.4); Mean Corpuscular Hemoglobin 31.2 pg (27.0-31.2); Mean Corpuscular Volume 98.1 fl (81-99); Mean Platelet Volume 9.1 fl (7.4-10.4); Monocytes # 0.7 K/mm3 (0.1-1.0); Monocytes % 6.6 % (1.7-9.3); Neutrophils # 7.8 K/mm3 (1.8-7.8); Neutrophils % 70.8 % (37.0-80.0); Platelet Count 310 K/mm3 (142-424); Red Blood Count 4.71 M/mm3 (4.20-5.40); Red Cell Distribution Width 14.8 % (11.5-17.5)
[2020-06-10 10:54] LABS: Alanine Aminotransferase 14 U/L (12-78); Albumin Level 4.1 g/dl (3.5-5.0); Albumin/Globulin Ratio 1.5 (1.1-1.8); Alkaline Phosphatase 93 U/L (38-126); Anion Gap 11.1 mEq/L (5-15); Aspartate Amino Transferase 24 U/L (14-36); Bilirubin,Total 0.4 mg/dl (0.2-1.3); Blood Urea Nitrogen 12 mg/dl (7-17); Calcium 9.8 mg/dl (8.4-10.2); Carbon Dioxide 29 mmol/L (22.0-30.0); Chloride 107 mmol/L (98-107); Estimated Glomerular Filt Rate 58 ml/min (>60); GFR (African American) 71 ML/MIN (>60); Globulin 2.7 g/dL (1.3-3.2); Glucose 82 mg/dl (74-100); Potassium 4.1 mmoL/L (3.5-5.1); Sodium 143 mmol/L (136-145); Total Protein,Serum 6.8 g/dl (6.3-8.2)
[2020-06-10 11:30] LABS: Coronavirus 19 IgG Antibody Positive (Negative); Coronavirus 19 IgM Antibody Negative (Negative)
[2020-06-13 14:20] LABS: Angiotensin Converting Enzyme 51 U/L (14-82)
== END ==
PROVIDERS: Internal Medicine; Visit Provider Internal Medicine Gastroenterology
DX: Z01.818 Encounter for other preprocedural examination (principal); Z20.822 Contact with and (suspected) exposure to COVID-19; Z12.11 Encounter for screening for malignant neoplasm of colon; Z13.810 Encounter for screening for upper gastrointestinal disorder
CPT/HCPCS: 36415; 80053; 82164; 85025; 86328

== ENCOUNTER 2020-06-12 09:36 | Day surgery (SDC) | payer MEDICARE, OTHER, SELFPAY ==
[2020-06-08 08:18] VITALS: BMI 35.1
[2020-06-12 10:02] VITALS: BP 120/68; PULSE 82; RESP 18; TEMP 36.7; O2SAT 97
[2020-06-12 10:36] VITALS: O2SAT 97
--- NOTE | 2020-06-12 10:47 | HMH.ANESCL ---
[facility] Anesthesia Checklist - Patient Identification Patient Identification: Arm Band - Structural Data Admitted From: Home Planned Operative Procedure/s: egd/colonoscopy Consent for Planned Operative Procedure(s) Verified: Yes Verified Documents: Surgical Consent, History and Physical - NPO Status Verified Time NPO: 00:00 - Additional verifications Anesthesia Reactions: No Hx Blood Transfusions: No Blood Transfusion Reaction: No - Airway Assessment C-Spine Mobility Assessed: Yes (mp2) TMJ Mobility Assessed: Yes Dentition: Good Dentition - Neurological Assessment Level of Consciousness: Awake, Alert - Anesthesia Plan Anesthesia Risk discussed: Yes Anesthesia Plan: Verified ASA Class: III Anesthesia Type: MAC [facility] History I have reviewed the patient's past medical history: Yes Medical History: Reports:: Asthma, Chronic Obstructive Pulmonary Disease (COPD), Hiatal Hernia, Lung Disease, Migraine, Palpitations Denies:: Cancer, Diabetes Mellitus Type 1, Diabetes Mellitus Type 2, Internal Pacemaker, MRSA, Seizures *Have you ever received a pneumonia vaccine?: No *Have you received a flu vaccine this season?: Yes Other Medical History: Reports: Arthritis, Hoarseness. Denies: Blood Transfusion Reaction Anesthesia experience/problems:: nac Laterality Cases: Left: Carpal Tunnel Release, Right: Arthroscopy Knee, Bilateral: Tonsillectomy, Other Other Surgeries: Yes: Appendectomy, Cholecystectomy, Colonoscopy, Hernia Repair, Other (Bladder tuck). No: Pacemaker Amputation: No Fractures: No - *Social History Last grade of school completed: High school graduate Smoking Status: Never smoker Tobacco Type: cigarettes #Yrs smoked (if former smoker): 2 Alcohol Intake: never Alcohol Intake Frequency:: other Substance Use Type: denies use *Occupational Status:: disabled Housing: house Household Members: none *Travel in the last 8 weeks: None Family Hx:: No significant family history
--- NOTE | 2020-06-12 10:55 | P.PCN_ITS ---
[facility] Procedure Note Procedure Note:: Upper Endoscopy Procedure Report: Esophagogastroduodenoscopy with cold biopsies and TTS balloon dilation Endoscopost: Anil Salter II, MD Referring Physician: RYAN Geller Date of Procedure: June 12, 2020 Equipment: Olympus GIF 190 standard upper endoscope Sedation: MAC sedation Indications: Mrs. Urbano is a 50-year-old female who is here for diagnostic upper endoscopy secondary to dyspepsia. She has had epigastric abdominal discomfort and states that she feels as if food just sits here . She has had moderate bloating and some belching. She reports early satiety. She has had some globus sensation. She did have prior hiatal hernia or paraesophageal hernia repair (Dr. Bola Baeza). She also had prior EGD/colonoscopy with de in 2008. Procedure: Prior to the procedure, a history and physical exam was performed, and patient's medications and allergies were reviewed. The risks, benefits and alternatives of the sedation and procedure were discussed with the patient. All questions were answered and informed consent was obtained. The patient was brought to the procedure room. Patient identification and proposed procedure were verified by the physician and the nurse. The patient was placed in a left lateral decubitus position and the scope was passed under direct vision. Throughout the procedure, the patient's blood pressure, pulse, and oxygen saturations were monitored continuously. The upper GI endoscopy was accomplished without difficulty. The patient tolerated the procedure well. Findings: The scope was passed directly into the upper esophagus and advanced to the third portion of the duodenum. The post bulbar duodenum and duodenal bulb were normal with normal mucosa and conniventes. The scope was withdrawn through a normal duodenal bulb and pylorus into the stomach. There was moderate bile reflux with linear reactive gastropathy of the antrum and body of the stomach. The remainder of the fundus of the stomach were grossly normal. Upon retroflexion there was evidence of prior fundoplication with small recurrent hiatal hernia. 2 biopsies were taken in the antrum and along the lesser curvature for histology to rule out gastritis and/or H pylori. The scope was then withdrawn into the esophagus. 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 There was evidence of nonerosive GERD. Biopsies were obtained at the GE junction. There were tertiary contractions and evidence of moderate esophageal dysmotility. The entire esophagus was dilated to 60 Stateless/20 mm with a TTS hydrostatic balloon. There was some resistance at the cricopharyngeus. The remainder of the esophageal mucosa was normal. Impression: 1. Cricopharyngeal spasm status post dilation to 20 mm 2. Nonerosive GERD with moderate esophageal dysmotility and very small recurrent 1 to 2 cm hiatal hernia 3. Bile reflux with mild to moderate linear reactive gastropathy Plan: The patient does have functional dyspepsia and functional bowel disease. We will discuss dietary measures and treatment options. I will follow-up the biopsies. I will proceed with colonoscopy.
--- NOTE | 2020-06-12 11:17 | P.PCN_ITS ---
[facility] Procedure Note Procedure Note:: Colonoscopy Procedure Report: Colonoscopy Endoscopist: Anil Salter II, MD Referring physician: RYAN Geller Date of Procedure: June 12, 2020 Equipment: Olympus 190 variable stiffness pediatric colonoscope Sedation: MAC sedation Indication: Mrs. Urbano is a 50-year-old female with epigastric abdominal discomfort and dyspepsia. She also has bowel irregularity with diarrhea which alternates with constipation. She has had moderate bloating. She does state that her maternal grandmother had colon cancer in her mid 40s. She reports no rectal bleeding or weight loss. Procedure: Prior to the procedure, a history and physical exam was performed, and patient's medications and allergies were reviewed. The risks, benefits and alternatives of the sedation and procedure were discussed with the patient. All questions were answered and informed consent was obtained. The patient was brought to the procedure room. Patient identification and proposed procedure were verified by the physician and the nurse. The patient was placed in a left lateral decubitus position and the scope was passed under direct vision. Throughout the procedure, the patient's blood pressure, pulse, and oxygen saturations were monitored continuously. The colonoscopy was accomplished without difficulty. The patient tolerated the procedure well. Findings: On digital rectal examination there was normal rectal tone. There were no external hemorrhoids. The colonoscope was introduced through the anal canal to the rectum and advanced to the cecum. The ileocecal valve and appendiceal orifice were identified. The scope was advanced a short distance into the ileum which appeared grossly normal. The scope was then withdrawn into the colon. The cecum, ascending, transverse, descending, sigmoid and rectum were grossly normal. There were no mucosal abnormalities identified. Upon retroflexion within the rectum there were grade 1-2 internal hemorrhoids.The preparation was excellent throughout with [place] Preparation Score of 9. The cecal time was 10 minutes. Impression: 1. Normal colonoscopy with intubation of the terminal ileum 2. Grade 1-2 internal hemorrhoids Plan: I will discuss additional treatment options including dietary measures, bulk fiber supplementation, probiotic and IBgard. The patient will not require surveillance colonoscopy again for 10 years by ACS guidelines.
[2020-06-12 11:19] VITALS: BP 88/55; PULSE 78; RESP 12; TEMP 36.4; O2SAT 100
[2020-06-12 11:29] VITALS: BP 96/61; PULSE 73; RESP 16; O2SAT 99
[2020-06-12 11:39] VITALS: BP 98/61; PULSE 66; RESP 16; O2SAT 100
[2020-06-12 11:49] VITALS: BP 94/66; PULSE 63; RESP 16; TEMP 36.6; O2SAT 99
== END 2020-06-12 11:50 | disposition home or self-care (01) ==
LOC: OUTP 09:38
PROVIDERS: PCP Nurse Practitioner Family; Visit Provider Internal Medicine Gastroenterology
PROC: 0DJ08ZZ Inspection of Upper Intestinal Tract, Via Natural or Artificial Opening Endoscopic (ICD-10-PCS; CPT 43235; principal; 2020-06-12 12:00)
DX: J39.2 Other diseases of pharynx (principal); K21.9 Gastro-esophageal reflux disease without esophagitis; K22.4 Dyskinesia of esophagus; K44.9 Diaphragmatic hernia without obstruction or gangrene; K31.89 Other diseases of stomach and duodenum; K64.0 First degree hemorrhoids; R19.4 Change in bowel habit; J44.9 Chronic obstructive pulmonary disease, unspecified; D64.9 Anemia, unspecified; Z91.048 Other nonmedicinal substance allergy status; Z79.899 Other long term (current) drug therapy
CPT/HCPCS: 43239; 43249; 45378; 88305; C1726

== ENCOUNTER → 2020-07-24 11:42 | Outpatient (CLI) | payer MEDICARE, OTHER, SELFPAY | PROVIDERS: PCP Nurse Practitioner Family; Visit Provider Internal Medicine | DX: Z01.812 Encounter for preprocedural laboratory examination (principal); Z11.52 Encounter for screening for COVID-19 | CPT/HCPCS: U0003 ==

== ENCOUNTER → 2020-09-01 17:44 | Outpatient (CLI) | payer MEDICARE, OTHER, SELFPAY ==
[2020-09-01 17:49] LABS: MANUAL DIFFERENTIAL MANUAL DIFFERENTIAL (MANUAL DIFF)
[2020-09-01 18:01] LABS: Basophils % 0.3 % (0.1-2.0); Eosinophils % 0.2 % (0.1-12.0); Hematocrit 41.9 % (37.0-47.0); Hemoglobin 13.8 g/dL (12.2-16.2); Lymphocytes # 2.1 K/mm3 (0.7-4.5); Lymphocytes % 17.8 % (10-50); Mean Corpuscular Hemoglobin 31.2 pg (27.0-31.2); Mean Corpuscular Volume 94.5 fl (81-99); Mean Platelet Volume 10.4 fl (7.4-10.4); Monocytes # 0.4 K/mm3 (0.1-1.0); Monocytes % 3.4 % (1.7-9.3); Neutrophils # 9.2 K/mm3 (1.8-7.8); Neutrophils % 78.3 % (37.0-80.0); Platelet Count 280 K/mm3 (142-424); Red Blood Count 4.44 M/mm3 (4.20-5.40); Red Cell Distribution Width 14.7 % (11.5-17.5); White Blood Count 11.7 K/mm3 (4.8-10.8)
[2020-09-01 18:21] LABS: Eosinophils % 1 % (0-3); Lymphocytes % 25 % (10-50); Monocytes % 4 % (2-9); Neutrophils % 70 % (42-76); Platelet Estimate Normal; RBC Morphology Normal; Total Cells Counted 100
[2020-09-01 19:21] LABS: Chloride 106 mmol/L (98-107); Potassium 4.4 mmoL/L (3.5-5.1); Sodium 142 mmol/L (136-145)
[2020-09-01 19:23] LABS: Blood Urea Nitrogen 15 mg/dl (7-17); Estimated Glomerular Filt Rate 52 ml/min (>60); GFR (African American) 63 ML/MIN (>60)
[2020-09-01 19:24] LABS: Alanine Aminotransferase 11 U/L (12-78); Albumin Level 4.1 g/dl (3.5-5.0); Albumin/Globulin Ratio 1.6 (1.1-1.8); Alkaline Phosphatase 108 U/L (38-126); Anion Gap 12.4 mEq/L (5-15); Aspartate Amino Transferase 21 U/L (14-36); Bilirubin,Total 0.4 mg/dl (0.2-1.3); Calcium 9.3 mg/dl (8.4-10.2); Carbon Dioxide 28 mmol/L (22.0-30.0); Globulin 2.5 g/dL (1.3-3.2); Glucose 97 mg/dl (74-100); Total Protein,Serum 6.6 g/dl (6.3-8.2)
== END ==
PROVIDERS: Visit Provider Internal Medicine
DX: D86.9 Sarcoidosis, unspecified (principal)
CPT/HCPCS: 36415; 80053; 85007; 85014; 85018; 85048; 85049

== ENCOUNTER → 2020-09-14 10:34 | Outpatient (CLI) | payer MEDICARE, OTHER, SELFPAY ==
--- NOTE | 2020-09-14 10:42 | XR_ITS ---
PROCEDURE: XR SHOULDER RT MIN 2V CLINICAL INDICATION: right shoulder pain COMPARISON: CR XR SHOULDER RT MIN 2V from 09/16/2019 FINDINGS: No fracture or dislocation. No lytic or blastic change. There is normal mineralization. Mild degenerative change of the AC joint. Glenohumeral joint is normal. Other findings:None. IMPRESSION: Mild degenerative change of the AC joint. Otherwise unremarkable views of the right shoulder. Dictated by: Rishi Davis MD 09/14/2020 11:04 Rishi Davis MD in [place] 09/14/2020 11:04
== END ==
PROVIDERS: PCP Nurse Practitioner Family; Visit Provider Orthopaedic Surgery Sports Medicine
DX: M25.511 Pain in right shoulder (principal)
CPT/HCPCS: 73030

== ENCOUNTER → 2020-09-19 13:45 | Outpatient (CLI) | payer MEDICARE, OTHER, SELFPAY ==
--- NOTE | 2020-09-19 13:45 | MR_ITS ---
PROCEDURE INFORMATION: Exam: MR Right Upper Extremity Joint Without Contrast; Shoulder Exam date and time: 09/19/2020 1:45 PM Age: 50 years old Clinical indication: Pain; Shoulder; Right; Additional info: Evaluate for a rotator cuff tear. Shoulder pain. Limited rom. Been to PT. Symptoms x1yr. No inury or trauma. Prior x-ray 09-14-20 TECHNIQUE: Imaging protocol: MR of the Right upper extremity without contrast. Exam focused on the shoulder. COMPARISON: 1. CR XR SHOULDER RT MIN 2V 09/14/2020 10:44 AM 2. CR XR SHOULDER RT MIN 2V 09/16/2019 11:53 AM FINDINGS: Bones and cartilage: Punctate cystic lesions in the posterosuperior bare area of the humeral head are most typical for normal anatomic variant pseudocysts. The undersurface of the acromion is flat, consistent with a type I acromion. Mild enthesopathic changes involve the undersurface of the acromion. There is no acute fracture or dislocation. No aggressive bone lesions are present. Joint spaces: There is minimal primary osteoarthritis of the acromioclavicular joint. A mild effusion involves the glenohumeral joint. Glenoid labrum: Unremarkable. No evidence of tear. Bursae: A mild amount of fluid is present in the subacromial-subdeltoid bursa. Supraspinatus tendon: High-grade partial-thickness tearing involves the articular surface of the supraspinatus tendon. The tear involves 80-90% of the thickness of the tendon in approximately a 1.2 cm region (series 5/images 7-9). There is up to 1.5 cm retraction of the tendon fibers. Moderate tendinosis involves adjacent intact fibers of the supraspinatus tendon. Infraspinatus tendon: Mild tendinosis involves the infraspinatus tendon. Subscapularis tendon: Low-grade partial-thickness tearing involves the articular surface of the subscapularis tendon. Moderate tendinosis involves the remainder of the subscapularis tendon. Teres minor tendon: No tear or significant tendinosis involves the teres minor tendon. Tendon of biceps brachii: Mild tendinosis involves the intra-articular portion of the long head of the biceps tendon. Glenohumeral ligaments: Unremarkable. Muscles: The subscapularis muscle demonstrates grade 1 (out of 4) muscle atrophy. The remainder of the rotator cuff musculature demonstrates no significant atrophy or edema. Soft tissues: Unremarkable. IMPRESSION: 1. High-grade partial-thickness tearing of the supraspinatus tendon articular surface in a 1.2 cm anterior to posterior region without muscle atrophy. 2. Low-grade partial-thickness tearing of the subscapularis tendon articular surface, superimposed on moderate tendinosis. 3. Minimal primary osteoarthritis of the acromioclavicular joint. 4. Mild subacromial-subdeltoid bursitis.
== END ==
PROVIDERS: PCP Nurse Practitioner Family; Visit Provider Orthopaedic Surgery Sports Medicine
DX: M25.511 Pain in right shoulder (principal); D86.9 Sarcoidosis, unspecified
CPT/HCPCS: 73221

== ENCOUNTER → 2020-09-25 10:27 | Outpatient (POV) | payer MEDICARE, OTHER, SELFPAY | PROVIDERS: Visit Provider Nurse Practitioner Family | DX: Z00.00 Encounter for general adult medical examination without abnormal findings (principal) ==

== ENCOUNTER → 2020-09-29 12:28 | Outpatient (CLI) | payer MEDICARE, OTHER, SELFPAY ==
[2020-09-29 13:49] LABS: Basophils % 0.4 % (0.1-2.0); Eosinophils # 0.1 K/mm3 (0.0-0.4); Eosinophils % 0.8 % (0.1-12.0); Hematocrit 44.5 % (37.0-47.0); Hemoglobin 13.9 g/dL (12.2-16.2); Lymphocytes # 1.6 K/mm3 (0.7-4.5); Lymphocytes % 14.7 % (10-50); Mean Corpuscular HGB Conc 31.3 g/dL (31.8-35.4); Mean Corpuscular Hemoglobin 30.1 pg (27.0-31.2); Mean Corpuscular Volume 96.1 fl (81-99); Monocytes # 0.7 K/mm3 (0.1-1.0); Monocytes % 6.5 % (1.7-9.3); Neutrophils # 8.5 K/mm3 (1.8-7.8); Neutrophils % 77.7 % (37.0-80.0); Platelet Count 266 K/mm3 (142-424); Red Blood Count 4.62 M/mm3 (4.20-5.40); Red Cell Distribution Width 14.5 % (11.5-17.5); White Blood Count 10.9 K/mm3 (4.8-10.8)
[2020-09-29 13:52] LABS: Chloride 106 mmol/L (98-107); Potassium 4.1 mmoL/L (3.5-5.1); Sodium 143 mmol/L (136-145)
[2020-09-29 13:55] LABS: Alanine Aminotransferase 11 U/L (12-78); Albumin Level 4.1 g/dl (3.5-5.0); Albumin/Globulin Ratio 1.5 (1.1-1.8); Alkaline Phosphatase 110 U/L (38-126); Anion Gap 11.1 mEq/L (5-15); Aspartate Amino Transferase 22 U/L (14-36); Bilirubin,Total 0.5 mg/dl (0.2-1.3); Blood Urea Nitrogen 14 mg/dl (7-17); Calcium 9.4 mg/dl (8.4-10.2); Carbon Dioxide 30 mmol/L (22.0-30.0); Estimated Glomerular Filt Rate 58 ml/min (>60); GFR (African American) 71 ML/MIN (>60); Globulin 2.7 g/dL (1.3-3.2); Glucose 101 mg/dl (74-100); Total Protein,Serum 6.8 g/dl (6.3-8.2)
[2020-10-03 15:29] LABS: Angiotensin Converting Enzyme 56 U/L (14-82)
== END ==
PROVIDERS: Visit Provider Internal Medicine
DX: D86.9 Sarcoidosis, unspecified (principal)
CPT/HCPCS: 36415; 80053; 82164; 85025

== ENCOUNTER → 2020-11-27 10:55 | Outpatient (CLI) | payer MEDICARE, OTHER, SELFPAY ==
--- NOTE | 2020-11-27 10:56 | MM_ITS ---
PROCEDURE: MM DIG SCREENING MAMM BI W/CAD Digital Breast Tomosynthesis Included CLINICAL INDICATION: screening mammogram There is a history of breast cancer in the patient's niece and patient's paternal grandmother COMPARISON: MG [facility]BI MM Dig screening mamm BI w/CAD from 06/11/2018 MG MM DIG SCREENING MAMM BI W/CAD from 11/18/2019 TECHNIQUE: Standard CC and MLO images and 3D Tomosynthesis was obtained. R2 CAD reviewed. FINDINGS: The breasts are composed primarily with minimal scattered fibroglandular densities throughout each breast. There are few benign-appearing microcalcifications in each breast.. There is no suspicious lesion and no suspicious microcalcifications. IMPRESSION: Fatty type breast parenchyma with no suspicious lesions seen BI-RAD Category: 2 Benign Finding(s) FOLLOW-UP: 1YR 1 Year Follow-up (A letter has been sent to the patient regarding results of the study.) Dictated by: Dr. Sumeet Boswell MD 12/01/2020 09:53 Dr. Sumeet Boswell MD in [place] 12/01/2020 09:53
== END ==
PROVIDERS: PCP Nurse Practitioner Family; Visit Provider Obstetrics & Gynecology
DX: Z12.31 Encounter for screening mammogram for malignant neoplasm of breast (principal)
CPT/HCPCS: 77063; 77067

== ENCOUNTER → 2020-12-05 11:53 | Outpatient (CLI) | payer MEDICARE, OTHER, SELFPAY | PROVIDERS: Visit Provider Orthopaedic Surgery | DX: Z01.818 Encounter for other preprocedural examination (principal); Z20.822 Contact with and (suspected) exposure to COVID-19; M19.011 Primary osteoarthritis, right shoulder | CPT/HCPCS: U0003 ==

== ENCOUNTER 2020-12-07 07:18 | Day surgery (SDC) | payer MEDICARE, OTHER, SELFPAY ==
[2020-12-06 09:49] VITALS: BMI 36.6
[2020-12-07] VITALS (14 sets, daily range): BP systolic 94–110; BP diastolic 51–76; PULSE 63–70; RESP 12–18; TEMP 36.1–43; O2SAT 90–95
--- NOTE | 2020-12-07 08:44 | P.PN_ITS ---
[facility] Anesthesia Checklist - Patient Identification Patient Identification: Arm Band - Structural Data Admitted From: Home Planned Operative Procedure/s: Right Shoulder Arthroscopy/Open Rotator Cuff Repair Consent for Planned Operative Procedure(s) Verified: Yes Verified Documents: Surgical Consent, History and Physical - NPO Status Verified Time NPO: 00:00 - Additional verifications Anesthesia Reactions: No Hx Blood Transfusions: No Blood Transfusion Reaction: No - Airway Assessment C-Spine Mobility Assessed: Yes (mp2) TMJ Mobility Assessed: Yes Dentition: Good Dentition - Neurological Assessment Level of Consciousness: Awake, Alert - Anesthesia Plan Anesthesia Risk discussed: Yes Anesthesia Plan: Verified ASA Class: III Anesthesia Type: General w/block (ISB. Risks/Benefits of nerve block explained. Pt verbalized understanding) [facility] History I have reviewed the patient's past medical history: Yes Medical History: Reports:: Asthma, Chronic Obstructive Pulmonary Disease (COPD), Hiatal Hernia, Lung Disease, Migraine, Palpitations Denies:: Cancer, Diabetes Mellitus Type 1, Diabetes Mellitus Type 2, Internal Pacemaker, MRSA, Seizures *Have you ever received a pneumonia vaccine?: Yes *Have you received a flu vaccine this season?: Yes Other Medical History: Reports: Arthritis, Hoarseness. Denies: Blood Transfusion Reaction Anesthesia experience/problems:: nac Laterality Cases: Left: Carpal Tunnel Release, Right: Arthroscopy Knee, Bilateral: Tonsillectomy, Other Other Surgeries: Yes: Appendectomy, Cholecystectomy, Colonoscopy, Hernia Repair, Other (Bladder tuck). No: Pacemaker Amputation: No Fractures: No - *Social History Last grade of school completed: High school graduate Smoking Status: Former smoker Tobacco Type: cigarettes #Yrs smoked (if former smoker): 2 Smoking End Date: 2015 Alcohol Intake: never Alcohol Intake Frequency:: other Substance Use Type: denies use *Occupational Status:: disabled Housing: house Household Members: none *Travel in the last 8 weeks: None Family Hx:: No significant family history
--- NOTE | 2020-12-07 12:28 | SUR.OPER ---
1215 family provided with an update
--- NOTE | 2020-12-07 14:34 | P.PN_ITS ---
[facility] Anesthesia Record Part I Intake, IV Amount: 2,000 Estimated blood loss (mL): 0 Urine output (mL): 1,100 Blood Pressure: 107/60 SaO2: 94 Pulse Rate: 64 Respiratory Rate: 12 Temperature: 97.5 F Patient is:: Awake, Stable Stable to PACU at:: 14:30
--- NOTE | 2020-12-07 17:28 | HMH.OPNOTE ---
Date of procedure: 12/07/20 Pre-op Diagnosis:: 1. High-grade partial-thickness rotator cuff tear, RIGHT shoulder 2. Biceps tendinopathy, RIGHT shoulder 3. Subacromial bursitis, RIGHT shoulder 4. Subacromial impingement, RIGHT shoulder 5. AC joint arthritis, RIGHT shoulder Post-op Diagnosis:: 1. Rotator cuff tear, RIGHT [id number] partial thickness tear of the supraspinatus tendon; and partial thickness tear of the superior border of subscapularis tendon 2. Subacromial bursitis, RIGHT shoulder 3. Subacromial impingement, RIGHT shoulder 4. Degenerative labrum and synovitis, RIGHT glenohumeral joint 5. AC joint arthritis, RIGHT shoulder Procedure performed:: 1. Arthroscopic repair of a rotator cuff tear, RIGHT shoulder. 2. Arthroscopic subacromial decompression with subacromial and subdeltoid bursectomy and bony acromioplasty, RIGHT shoulder. 3. Arthroscopic glenohumeral joint debridement, RIGHT shoulder. 4. Arthroscopic biceps tenotomy, RIGHT shoulder 5. Arthroscopic distal clavicle excision, RIGHT shoulder Surgeon:: Tj Mcwilliams MD Coloring Checker(s):: Yenny Ordoñez PA-C PEST CONTROL SERVICE TECHNICIAN:: Randall Ramon Anesthesia: GETA, regional (Interscalene nerve block) Estimated blood loss (mL): 5 Clinical Note:: Patient is a 50-year-old [id number] female with history of pain and disability in her RIGHT shoulder for a long time. She has weakness and difficulty with the use of the arm. Preoperative evaluation was consistent with the above mentioned diagnosis. After discussion of the risks and benefits of the surgical versus nonsurgical management, she elected to proceed with surgical remediation. Please refer to my office note for full details. Operative findings:: There was a high-grade partial-thickness, articular surface tear of the supraspinatus tendon and high-grade partial-thickness tear of the superior border of the subscapularis tendon. The biceps tendon appeared normal without any tearing or synovitis. However, the labrum was frayed anteriorly and superiorly with detachment around the biceps anchor. The pouch was normal; the rotator interval was synovitic. The articular surface of the humerus and glenoid were without any significant degenerative changes. There was extensive subacromial and subdeltoid bursitis and the acromion had undersurface spurring over the anterolateral margin. The AC joint was arthritic with undersurface spurring. Operative note:: On the day of the procedure, the patient was positively identified in the preoperative area; the surgical site was marked and initialed by me. I reviewed the clinical, x- ray and MRI findings with the patient. We again had a detailed discussion about the diagnosis, implications of the same, natural history and management options including both nonsurgical and surgical options for her shoulder. Nonsurgical alternatives explained as well which in his case would be physical therapy, activity modification and effective pain management. Given her symptoms, clinical and MRI findings, functional status, patient is opting for surgical management. The proposed surgical management for the shoulder includes an arthroscopic glenohumeral joint debridement, biceps tenotomy versus tenodesis if indicated at the time of surgery, sub acromial decompression, distal clavicle excision and rotator cuff repair. I told patient that there were no guarantees with surgery; she could be no better or even worse. The complications discussed include but are not limited to infection, injury to nerves and blood vessels, bleeding, hematoma, tendon injury, fluid extravasation, chondrolysis, injury to the articular surface, instrument failure, DVT/PE, incomplete relief/continued pain, failure of the condition to improve, incomplete return of function, shoulder instability, arthritis, stiffness, complex regional pain syndrome (CRPS), recurrence, hardware failure, anchor pullout and acromion fracture failure of the surgery to accomplish the d
[2020-12-07 21:50] LABS: Microscopic,Cath URINE MICROSCOPIC (MICROSCOPIC)
[2020-12-07 22:40] LABS: Appearance,Urine/Cath CLEAR (Clear); Bilirubin,Cath Negative (Negative); Blood, Urine/Cath Negative (Negative); Color,Urine/Cath YELLOW (Yellow); Glucose,Urine/Cath (UA) Negative (Negative); Ketones,Urine/Cath Negative (Negative); Leukocyte Esterase,Cath Negative (Negative); Nitrate,Cath Negative (Negative); Protein,Urine/Cath Negative (Negative); Urobilinogen,Cath 0.2 EU/dl (0.2)
[2020-12-07 22:56] LABS: Bacteria,Urine/Cath TRACE /lpf; WBC,Urine/Cath Occasional #/hpf (0-3)
[2020-12-08 08:57] VITALS: BP 108/64; PULSE 65; TEMP 36.4
--- NOTE | 2020-12-08 08:57 | P.PN_ITS ---
[facility] Anesthesia Record Part II Discharge Time: 14:57 Destination: Surgical Day Care (OP Surgery) PACU nurse assessment reviewed?: Yes Patient Condition:: Good Anesthesia Complications:: None Swallowing reflex intact?: Yes Cyanosis?: No Blood Pressure: 108/64 Pulse Rate: 65 Temperature: 97.5 F Mental Status: Alert & Oriented Pain level:: 0 Nausea and/or vomitting:: None Intake, IV Amount: 0
== END 2020-12-07 16:30 | disposition home or self-care (01) ==
LOC: OR 07:21
PROVIDERS: PCP Nurse Practitioner Family; Visit Provider Orthopaedic Surgery
PROC: (CPT 29827; principal; 2020-12-07 09:00)
DX: M75.111 Incomplete rotator cuff tear or rupture of right shoulder, not specified as traumatic (principal); M75.51 Bursitis of right shoulder; M75.41 Impingement syndrome of right shoulder; M19.011 Primary osteoarthritis, right shoulder; M25.511 Pain in right shoulder; G89.29 Other chronic pain
CPT/HCPCS: 29826; 29827; 29828; 81001; 96374; C1713; J2405

== ENCOUNTER → 2020-12-20 14:24 | Outpatient (CLI) | payer MEDICARE, OTHER, SELFPAY ==
[2020-12-20 14:52] LABS: Basophils # 0.1 K/mm3 (0-0.2); Basophils % 0.4 % (0.1-2.0); Eosinophils # 0.1 K/mm3 (0.0-0.4); Eosinophils % 0.4 % (0.1-12.0); Hematocrit 45.4 % (37.0-47.0); Hemoglobin 14.4 g/dL (12.2-16.2); Lymphocytes # 1.9 K/mm3 (0.7-4.5); Lymphocytes % 13.3 % (10-50); Mean Corpuscular HGB Conc 31.8 g/dL (31.8-35.4); Mean Corpuscular Hemoglobin 31.8 pg (27.0-31.2); Mean Corpuscular Volume 99.9 fl (81-99); Mean Platelet Volume 10.1 fl (7.4-10.4); Monocytes # 0.5 K/mm3 (0.1-1.0); Monocytes % 3.6 % (1.7-9.3); Neutrophils # 12.1 K/mm3 (1.8-7.8); Neutrophils % 82.3 % (37.0-80.0); Platelet Count 347 K/mm3 (142-424); Red Blood Count 4.55 M/mm3 (4.20-5.40); Red Cell Distribution Width 14.8 % (11.5-17.5); White Blood Count 14.7 K/mm3 (4.8-10.8)
[2020-12-20 15:14] LABS: Alanine Aminotransferase 20 U/L (12-78); Albumin Level 4.1 g/dl (3.5-5.0); Albumin/Globulin Ratio 1.5 (1.1-1.8); Alkaline Phosphatase 124 U/L (38-126); Aspartate Amino Transferase 28 U/L (14-36); Bilirubin,Total 0.4 mg/dl (0.2-1.3); Blood Urea Nitrogen 10 mg/dl (7-17); Calcium 9.9 mg/dl (8.4-10.2); Carbon Dioxide 31 mmol/L (22.0-30.0); Chloride 103 mmol/L (98-107); Estimated Glomerular Filt Rate 66 ml/min (>60); GFR (African American) 80 ML/MIN (>60); Globulin 2.7 g/dL (1.3-3.2); Glucose 106 mg/dl (74-100); Sodium 142 mmol/L (136-145); Total Protein,Serum 6.8 g/dl (6.3-8.2)
[2020-12-22 19:52] LABS: Angiotensin Converting Enzyme 51 U/L (14-82)
== END ==
PROVIDERS: Visit Provider Internal Medicine
DX: D86.9 Sarcoidosis, unspecified (principal)
CPT/HCPCS: 36415; 80053; 82164; 85025

== ENCOUNTER → 2021-01-11 10:33 | Outpatient (CLI) | payer MEDICARE, OTHER, SELFPAY ==
--- NOTE | 2021-01-11 10:33 | US_ITS ---
PROCEDURE: US TRANSVAGINAL CLINICAL INDICATION: PMB COMPARISON: US PTV US PELVIS-TRANSVAGINAL ONLY from 11/20/2012 FINDINGS: The uterus is atrophic measuring 6 x 2 4 cm with combined endometrial thickness of 2 mm. No uterine mass evident. The left ovary is 3 x 2 cm. The right ovary was not able to be visualized. No cul-de-sac fluid apparent. No obvious adnexal mass. Uterus is somewhat retroflexed. IMPRESSION: Slightly retroflexed uterus. No obvious uterine mass or endometrial thickening. Right ovary was not able to be visualized. No obvious adnexal mass or cul-de-sac fluid demonstrated. Dictated by: Broderick Olmos MD 01/12/2021 09:48 Broderick Olmos MD in [place] 01/12/2021 09:48
[2021-01-11 11:57] LABS: Basophils # 0.1 K/mm3 (0-0.2); Basophils % 0.6 % (0.1-2.0); Eosinophils # 0.1 K/mm3 (0.0-0.4); Eosinophils % 0.9 % (0.1-12.0); Hematocrit 45.7 % (37.0-47.0); Hemoglobin 14.4 g/dL (12.2-16.2); Lymphocytes % 18.9 % (10-50); Mean Corpuscular HGB Conc 31.6 g/dL (31.8-35.4); Mean Corpuscular Hemoglobin 31.9 pg (27.0-31.2); Mean Platelet Volume 9.7 fl (7.4-10.4); Monocytes # 0.6 K/mm3 (0.1-1.0); Monocytes % 5.7 % (1.7-9.3); Neutrophils # 7.9 K/mm3 (1.8-7.8); Platelet Count 357 K/mm3 (142-424); Red Blood Count 4.53 M/mm3 (4.20-5.40); Red Cell Distribution Width 14.5 % (11.5-17.5); White Blood Count 10.7 K/mm3 (4.8-10.8)
[2021-01-11 12:47] LABS: Chloride 104 mmol/L (98-107); Potassium 3.9 mmoL/L (3.5-5.1); Sodium 141 mmol/L (136-145)
[2021-01-11 12:50] LABS: Alanine Aminotransferase 13 U/L (12-78); Albumin Level 3.9 g/dl (3.5-5.0); Albumin/Globulin Ratio 1.4 (1.1-1.8); Alkaline Phosphatase 112 U/L (38-126); Anion Gap 10.9 mEq/L (5-15); Aspartate Amino Transferase 23 U/L (14-36); Bilirubin,Total 0.4 mg/dl (0.2-1.3); Blood Urea Nitrogen 8 mg/dl (7-17); Carbon Dioxide 30 mmol/L (22.0-30.0); Estimated Glomerular Filt Rate 76 ml/min (>60); GFR (African American) 92 ML/MIN (>60); Globulin 2.7 g/dL (1.3-3.2); Total Protein,Serum 6.6 g/dl (6.3-8.2)
[2021-01-11 12:51] LABS: Calcium 9.7 mg/dl (8.4-10.2); Glucose 95 mg/dl (74-100)
[2021-01-12 15:18] LABS: Angiotensin Converting Enzyme 46 U/L (14-82)
== END ==
PROVIDERS: Internal Medicine; PCP Nurse Practitioner Family; Visit Provider Obstetrics & Gynecology
DX: N95.0 Postmenopausal bleeding (principal); D86.9 Sarcoidosis, unspecified
CPT/HCPCS: 36415; 76830; 80053; 82164; 85025

== ENCOUNTER → 2021-02-05 14:04 | Outpatient (CLI) | payer MEDICARE, OTHER, SELFPAY | PROVIDERS: PCP Internal Medicine Adolescent Medicine; Visit Provider Nurse Practitioner | DX: Z20.822 Contact with and (suspected) exposure to COVID-19 (principal) | CPT/HCPCS: C9803; U0003; U0005 ==

== ENCOUNTER → 2021-03-07 12:47 | Outpatient (CLI) | payer MEDICARE, OTHER, SELFPAY ==
--- NOTE | 2021-03-07 12:52 | XR_ITS ---
PROCEDURE: XR SHOULDER RT MIN 2V CLINICAL INDICATION: s/p RT rotator cuff repair, sx 12/07/20 COMPARISON: CR XR SHOULDER RT MIN 2V from 09/16/2019 CR XR SHOULDER RT MIN 2V from 09/14/2020 MR MR SHOULDER RT WO CON from 09/19/2020 FINDINGS: Status post osteotomy at the acromioclavicular joint. There is a downsloping a chromium with subacromial stenosis. 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 Follow-up may confirm. Other findings:None. IMPRESSION: S/p acromioclavicular osteotomy. Subacromial stenosis with vague areas of decreased attenuation within the humeral head nonspecific. Dictated by: Broderick Olmos MD 03/07/2021 14:00 Broderick Olmos MD in [place] 03/07/2021 14:00
== END ==
PROVIDERS: PCP Nurse Practitioner Family; Visit Provider Orthopaedic Surgery
DX: Z98.890 Other specified postprocedural states (principal); M25.511 Pain in right shoulder
CPT/HCPCS: 73030

== ENCOUNTER 2021-06-06 14:00 | Outpatient (RCR) | payer MEDICARE, MEDICAID, OTHER, SELFPAY ==
--- NOTE | 2021-04-20 15:27 | HMH.RHREAS ---
Rehab Reassessment Rehab OP Re-assessment Start: 02/19/21 16:38 Freq: Status: Active Protocol: Document 04/20/21 15:23 ESTEVANDRAKE (Rec: 04/20/21 15:26 LCPIOIS [id number]) Electronically Signed By Shannon Urbano OT 04/20/21 15:23 Rehab Re-assessment Subjective Subjective My shoulder is moving better. Objective Objective Notes Patient is currently 19 weeks out from s/p RCF, subacromial decompression, glenohumeral joint debridement, DCE, bicep tenotomy on 12/07/20. Patient recently had a f/u with ortho on 03/08/21 and was released to begin R UE shoulder strengthening. Patient's next f/u will be May of 2021. Advance strengthening has been added to protcol and tx in order improve R UE strength for ADLs and fx'l mobility tasks. Assessment Progress Assessment Progressing as Expected Assessment Notes Evaluation 01/22/21 R UE AROM shoulder flex: 65 abd: 70 ER: 10 IR: 20 3-/5 7/10 pain at worst Re-assessment on 02/19/21 R UE AROM shoulder flex: 125 abd: 120 ER: 50 IR: 50 4-/5 6/10 Re-assessment on 03/19/21 R UE AROM shoulder flex: 136 abd: 120 ER: 65 IR: 65 3/10 pain at worst 3+ to 4-/5 strength throughout Re-assessment on 04/21/21 R UE AROM shoulder flex: 150 abd: 142 er: 88 IR: 55 3/10 pain at worst 4 to 4-/5 strength throughout Patient goals met R UE AROM shoulder flex, abd
== END 2021-06-06 14:05 | disposition home or self-care (01) ==
LOC: OT 14:00
PROVIDERS: PCP Nurse Practitioner Family; Visit Provider Orthopaedic Surgery
DX: M19.011 Primary osteoarthritis, right shoulder (principal); M75.111 Incomplete rotator cuff tear or rupture of right shoulder, not specified as traumatic; M75.51 Bursitis of right shoulder; M75.41 Impingement syndrome of right shoulder; M67.911 Unspecified disorder of synovium and tendon, right shoulder
CPT/HCPCS: 97010; 97014; 97110; 97140; 97164; 97165; 97530; G0283

== ENCOUNTER → 2021-11-30 12:33 | Outpatient (CLI) | payer MEDICARE, MEDICAID, SELFPAY ==
--- NOTE | 2021-11-30 12:33 | MM_ITS ---
PROCEDURE INFORMATION: Exam: MG Bilateral Screening 3D Mammography Exam date and time: 11/30/2021 12:59 PM Age: 51 years old Clinical indication: Screening mammogram. TECHNIQUE: Imaging protocol: Bilateral Screening tomosynthesis and 2D mammography including computer-aided detection (CAD) when performed. COMPARISON: 1. MG MM DIG SCREENING MAMM BI W/CAD 11/27/2020 11:08 AM 2. MG MM DIG SCREENING MAMM BI W/CAD 11/18/2019 10:54 AM 3. MG SCBI MM Dig screening mamm BI w/CAD 06/11/2018 9:14 AM FINDINGS: MAMMOGRAPHY: Breast composition: There are scattered areas of fibroglandular density. Mass: None. Architectural distortion: No new or suspicious architectural distortion. Calcifications: Stable benign-appearing calcifications are present. No new or suspicious cluster of microcalcifications have developed. Asymmetric density: No new or suspicious asymmetric density is present Skin thickening: None. Axillary adenopathy: None. IMPRESSION: No mammographic evidence of malignancy. Recommend annual screening mammography unless otherwise clinically indicated. ASSESSMENT: BI-RADS category 2: Benign
== END ==
PROVIDERS: PCP Nurse Practitioner Family; Visit Provider Obstetrics & Gynecology
DX: Z12.31 Encounter for screening mammogram for malignant neoplasm of breast (principal)
CPT/HCPCS: 77063; 77067

== ENCOUNTER → 2021-12-05 12:46 | Outpatient (CLI) | payer MEDICARE, MEDICAID, SELFPAY ==
--- NOTE | 2021-12-05 12:47 | CA_ITS ---
APPROVED REPORT EXAM: Comprehensive 2D, Doppler, and color-flow Echocardiogram Cook Helper Meat: Shirley Mckeon RVT Ht: 5 ft 2 in Wt: 200lbs BSA: 1.91 BP: 107/54 mmHg Indications: MOBLEY,SARCOID 2D Dimensions LVOT 2.13 cm (M/F) 1.5-2.5 LA Volume 21.90 mL LA Volume Index 11.46 mL/m2 (M/F) 16-34 M-Mode Dimensions RVDd 2.89 cm (0.9-2.6) LA Diam 4.08 cm (1.9-4.0) LVDd 4.58 cm (3.5-5.7) Ao Diam 2.72 cm (2.0-3.7) LVDs 2.97 cm (3.5-5.7) IVSd 0.48 cm (0.6-1.1) PWd 0.56 cm (0.6-1.1) EF (Teich) 64.50% FS 35.20% EDV (Teich) 96.30 mL TAPSE 1.86 (<1.7) ESV (Teich) 34.20 mL LV Diastology E Decel Time 233.00 (160-240 msec) E/A Ratio 0.9 MED E' 7.80 (< 7 cm/sec) E'/MED E' Ratio 7.96 (>14) LAT E' 10.20 (<10 cm/sec) E/LAT E' Ratio 6.09 (>14) Aortic Valve AO Peak GR. 4.20 mmHg Mitral Valve MV E Max Delbert. 62.00 (40-130 cm/s) MV A Velocity 72.00 (40-130 cm/s) E/A Ratio 0.86 MV Decel. Time 233.00 (160-240 ms) MV PHT 68.00 ms Pulmonary Valve PV Peak Velocity 76.00 (50-150 cm/s) Tricuspid Valve TR P. Velocity 189.00 cm/s RAP Estimate 10.00 mmHg RVSP 24.30 mmHg Left Ventricle Left atrium is mildly enlarged, left ventricle is normal size mild concentric left ventricular hypertrophy, estimated ejection fraction 55% with no regional wall motion abnormality, grade 1 diastolic dysfunction seen without tissue Doppler evidence of raise left atrial pressure. Right Ventricle Right atrium and right ventricle are mildly enlarged with normal contractility. Aortic Valve Aortic valve is minimally thickened and fibrosed there is no aortic stenosis or aortic insufficiency. Mitral Valve Mitral valve is grossly normal, there is trace mitral regurgitation. Tricuspid Valve Tricuspid grossly normal, there is trace tricuspid regurgitation, tricuspid regurgitation jet velocity is inadequate for calculation of the right ventricular systolic pressure. Pulmonic Valve Pulmonic valve is poorly visualized. Great Vessels Aortic root is normal size. Inferior vena cava is poorly visualized. Pericardium No significant pericardial effusion noted. Conclusion 1. Mild biatrial enlargement, normal left ventricular size, mild concentric left ventricular hypertrophy, estimated ejection fraction 55% with no regional wall motion abnormality, grade 1 diastolic dysfunction seen without tissue Doppler evidence of raise left atrial pressure. 2. Mildly enlarged right ventricle with normal contractility. 3. Trace mitral and tricuspid regurgitation. 4. No significant pericardial effusion. 5. Inferior vena cava is poorly visualized. Electronically signed by : Slick Frank MD 12/05/2021 20:23:38
== END ==
PROVIDERS: PCP Nurse Practitioner Family; Visit Provider Nurse Practitioner Family
DX: R06.09 Other forms of dyspnea (principal); D86.9 Sarcoidosis, unspecified
CPT/HCPCS: 93306

== ENCOUNTER → 2021-12-12 12:23 | Outpatient (CLI) | payer MEDICARE, MEDICAID, SELFPAY ==
--- NOTE | 2021-12-12 12:28 | XR_ITS ---
FINAL REPORT CLINICAL HISTORY: shoulder surgery follow up COMPARISON: 03/07/2021 FINDINGS: RIGHT SHOULDER 3 views demonstrate presumed postoperative changes in the region of the acromioclavicular joint. There is no acute fracture. There are no soft tissue abnormalities. IMPRESSION: Stoppage is with no acute process. Reviewed, Interpreted and Dictated by Didier Talley III, MD Transcribed by Connie Park Authenticated and [facility]
== END ==
PROVIDERS: PCP Nurse Practitioner Family; Visit Provider Orthopaedic Surgery
DX: M25.511 Pain in right shoulder (principal)
CPT/HCPCS: 73030

== ENCOUNTER → 2022-07-27 15:07 | Outpatient (CLI) | payer MEDICARE, MEDICAID, SELFPAY ==
[2022-07-27 15:43] LABS: Adenovirus F 40/41, stool Not Detected (NotDetected); Astrovirus Not Detected (NotDetected); Campylobacter Not Detected (NotDetected); Clostridium Difficile A/B, PCR Not Detected (NotDetected); Cryptosporidium Not Detected (NotDetected); Cyclospora Cayetanesis Not Detected (NotDetected); Entamoeba histolytica Not Detected (NotDetected); Enteroaggregative E coli Not Detected (NotDetected); Enteropathogenic E coli Not Detected (NotDetected); Enterotoxigenic E coli Not Detected (NotDetected); Giardia lamblia Not Detected (NotDetected); Norovirus Not Detected (NotDetected); Plesimonas Shigalloides, PCR Not Detected (NotDetected); Rotavirus A Not Detected (NotDetected); Salmonella, PCR Not Detected (NotDetected); Sapovirus Not Detected (NotDetected); Shiga-like toxin E coli Not Detected (NotDetected); Shigella Enterovasive E coli Not Detected (NotDetected); Vibrio Cholerae Not Detected (NotDetected); Vibrio, PCR Not Detected (NotDetected); Yersinia Entercolitica, PCR Not Detected (NotDetected)
== END ==
PROVIDERS: PCP Nurse Practitioner Family; Visit Provider Nurse Practitioner Family
DX: R19.4 Change in bowel habit (principal); R19.7 Diarrhea, unspecified; K30 Functional dyspepsia; K58.2 Mixed irritable bowel syndrome
CPT/HCPCS: 87507

== ENCOUNTER → 2022-11-25 15:44 | Outpatient (CLI) | payer MEDICARE, MEDICAID, SELFPAY ==
--- NOTE | 2022-11-25 15:47 | US_ITS ---
FINAL REPORT CLINICAL HISTORY: ENLARGED THYROID COMPARISON: None FINDINGS: THYROID ULTRASOUND: The right lobe of the thyroid measures 4.7 x 1.3 x 1.6 cm in size. There are a few small subcentimeter hypoechoic nodules noted in the right lobe, the largest of which measures 5 mm in size. The left lobe of the thyroid gland measures 4.5 x 1.2 x 1.7 cm in size. There is a dominant focal 7 mm hypoechoic, mostly solid mass identified in the mid left lobe, as well as several other 5 mm or less in size small hypoechoic nodules. The size of the dominant nodule is less than 1 cm, so by TI-RADS criteria no follow-up is necessary at this time. The isthmus is unremarkable in appearance and measures 3 mm in thickness. IMPRESSION: Dominant 7 mm hypoechoic, mostly solid mass in the mid left lobe of the thyroid gland, by TI-RADS criteria no follow-up is necessary at this time. Reviewed, Interpreted and Dictated by Ramin Acosta MD Transcribed by Mirella Bruce Authenticated and [facility]
== END ==
PROVIDERS: PCP Nurse Practitioner Family; Visit Provider Internal Medicine Adolescent Medicine
DX: E04.9 Nontoxic goiter, unspecified (principal)
CPT/HCPCS: 76536

== ENCOUNTER → 2022-12-16 13:16 | Outpatient (CLI) | payer MEDICARE, MEDICAID, SELFPAY ==
--- NOTE | 2022-12-16 13:16 | MM_ITS ---
PROCEDURE INFORMATION: Exam: MG Bilateral Screening 3D Mammography Exam date and time: 12/16/2022 1:11 PM Age: 52 years old Clinical indication: Screening examination TECHNIQUE: Imaging protocol: Bilateral Screening tomosynthesis and 2D mammography including computer-aided detection (CAD) when performed. COMPARISON: 1. MG MM DIG SCREENING MAMM BI W/CAD 11/30/2021 12:59 PM 2. MG MM DIG SCREENING MAMM BI W/CAD 11/27/2020 11:08 AM FINDINGS: MAMMOGRAPHY: Breast composition: There are scattered areas of fibroglandular density. Mass: None. Architectural distortion: None. Calcifications: No suspicious calcifications. Asymmetric density: None. Skin thickening: None. Axillary adenopathy: None. IMPRESSION: No mammographic evidence of malignancy. Annual screening is recommended unless otherwise clinically indicated. ASSESSMENT: BI-RADS Category 1: Negative
== END ==
PROVIDERS: PCP Nurse Practitioner Family; Visit Provider Nurse Practitioner Obstetrics & Gynecology
DX: Z12.31 Encounter for screening mammogram for malignant neoplasm of breast (principal)
CPT/HCPCS: 77063; 77067

== ENCOUNTER 2023-05-08 13:50 | Outpatient (CLI) | payer MEDICARE, MEDICAID, SELFPAY ==
--- NOTE | 2023-05-08 15:00 | XR_ITS ---
FINAL REPORT CLINICAL HISTORY: NECK PAIN,LT ARM PAIN FINDINGS: CERVICAL SPINE Five views were obtained. There is no acute fracture. There are mild and moderate degenerative changes with multilevel osteophytes. There is mild retrolisthesis of L4 on 5 with neuroforaminal narrowing. There is no malalignment. IMPRESSION: Degenerative changes as detailed above. Reviewed, Interpreted and Dictated by Didier Talley III, MD Transcribed by Heavenly Felipe Authenticated and [facility]
[2023-05-08 15:15] LABS: Alanine Aminotransferase 20 U/L (12-78); Albumin Level 3.9 g/dl (3.5-5.0); Albumin/Globulin Ratio 1.6 (1.1-1.8); Alkaline Phosphatase 106 U/L (38-126); Anion Gap 7.7 mEq/L (5-15); Aspartate Amino Transferase 28 U/L (14-36); Bilirubin,Total 0.3 mg/dl (0.2-1.3); Blood Urea Nitrogen 14 mg/dl (7-17); Calcium 9.1 mg/dl (8.4-10.2); Carbon Dioxide 29 mmol/L (22.0-30.0); Chloride 107 mmol/L (98-107); Estimated Glomerular Filt Rate 58 ml/min (>60); GFR (African American) 70 ML/MIN (>60); Globulin 2.4 g/dL (1.3-3.2); Glucose 93 mg/dl (74-100); Potassium 4.7 mmoL/L (3.5-5.1); Sodium 139 mmol/L (136-145); Total Protein,Serum 6.3 g/dl (6.3-8.2)
== END 2023-05-08 23:59 ==
PROVIDERS: PCP Nurse Practitioner Family; Visit Provider Obstetrics & Gynecology
DX: N95.1 Menopausal and female climacteric states (principal); M54.2 Cervicalgia; M79.2 Neuralgia and neuritis, unspecified
CPT/HCPCS: 36415; 72050; 80053

== ENCOUNTER 2023-05-27 20:06 | Emergency (ER) | payer MEDICARE, MEDICAID, SELFPAY ==
[2023-05-27 20:07] VITALS: BP 106/53; PULSE 89; RESP 20; TEMP 37.3; O2SAT 94; BMI 33.4
--- NOTE | 2023-05-27 20:25 | CT_ITS ---
PROCEDURE INFORMATION: Exam: CT Abdomen And Pelvis With Contrast Exam date and time: 05/27/2023 9:05 PM Age: 53 years old Clinical indication: Abdominal pain; Additional info: Severe R sided abd pain, SOA TECHNIQUE: Imaging protocol: Computed tomography of the abdomen and pelvis with contrast. Radiation optimization: All CT scans at this facility use at least one of these dose optimization techniques: automated exposure control; mA and/or kV adjustment per patient size (includes targeted exams where dose is matched to clinical indication); or iterative reconstruction. Contrast material: ISOVUE; Contrast volume: 75 ml; Contrast route: IV; COMPARISON: 1. ABDPELW CT abdomen pelvis w con 12/10/2018 10:[address] abdomen pelvis w con 12/02/2017 14:[address] ANGIO CHEST PE PROTOCOL 27/05/2023 21:05 FINDINGS: Liver: There are low-density lesions in the liver which most likely reflect a combination of cysts and/or hemangiomas. Gallbladder and bile ducts: The patient is status post cholecystectomy. Pancreas: There is fatty replacement of the pancreas. Spleen: There are multiple calcifications in the spleen most likely reflects small granulomas. Adrenal glands: The adrenal glands appear normal. Kidneys and ureters: Simple appearing right renal cyst. Stomach and bowel: The stomach, small bowel, and colon are well-distended and show no evidence of wall thickening, masses, or obstruction. Appendix: No evidence of appendicitis. Intraperitoneal space: Unremarkable. Vasculature: The abdominal aorta and its major branches appear normal without evidence of aneurysm or stenosis. There are pelvic phleboliths. Lymph nodes: No lymphadenopathy. Urinary bladder: Unremarkable as visualized. Reproductive: No acute process. Bones/joints: The visualized osseous structures of the abdomen and pelvis appear normal for patient age. Soft tissues: Unremarkable. Other findings: Please see the dedicated interpretation of the thorax for findings in that region. IMPRESSION: 1. No acute inflammatory or obstructive process is identified. Incidental findings are described within the findings section. 2. Please see the dedicated interpretation of the thorax for findings in that region. COMMENTS: Consistent with the [employer]'s Incidental Findings Committee white paper (J Am Silvio Radiol 2018): Any incidental renal lesion less than 1 cm or classified as too small to characterize, or any incidental cystic renal lesion characterized as simple-appearing, is likely benign. No follow-up imaging is recommended for these lesions per consensus recommendations based on imaging criteria.
--- NOTE | 2023-05-27 20:25 | CT_ITS ---
PROCEDURE INFORMATION: Exam: CTA Chest With Contrast Exam date and time: 05/27/2023 9:05 PM Age: 53 years old Clinical indication: Shortness of breath; Additional info: Severe R sided abd pain, SOA TECHNIQUE: Imaging protocol: Computed tomographic angiography of the chest with contrast. Exam focused on the arteries. 3D rendering (Not supervised by radiologist): MIP and/or 3D reconstructed images were created by the technologist. Radiation optimization: All CT scans at this facility use at least one of these dose optimization techniques: automated exposure control; mA and/or kV adjustment per patient size (includes targeted exams where dose is matched to clinical indication); or iterative reconstruction. Contrast material: ISOVUE; Contrast volume: 75 ml; Contrast route: INTRAVENOUS (IV); COMPARISON: 1. [facility] CT angio chest 12/02/2017 14:39 2. CTA CTA-CHEST 27/10/2016 13:[address] CHEST W CON 01/09/2020 12:57 FINDINGS: Pulmonary arteries: There is fair opacification of the pulmonary arterial tree. No central pulmonary arterial filling defect is seen. Aorta: There is atherosclerotic disease of the visualized aorta and its major branch vessels. Other arteries: Subsegmental vessels are not well evaluated due to technical factors. Lungs: Scattered areas of bronchial wall thickening which are likely chronic inflammatory. A few areas of subpleural reticulation are noted, nonspecific. Evaluation for small pulmonary nodules is precluded by patient condition. Fleischner Society guidelines are n/a. Pleural spaces: Unremarkable. No pneumothorax. No pleural effusion. Heart: Unremarkable. No cardiomegaly. No pericardial effusion. Coronary arteries: There is moderate coronary atherosclerotic disease/calcification although evaluation is limited secondary to the non gated nature of the study. Lymph nodes: There are calcified mediastinal lymph nodes likely reflecting prior granulomatous disease. Intraperitoneal space: Please see the dedicated interpretation of abdomen and pelvis for findings in that region. Bones/joints: There is diffuse degenerative disease of the visualized osseous structures. Soft tissues: Unremarkable. Other findings: Motion artifact mildly limits evaluation. IMPRESSION: 1. No central pulmonary arterial filling defect is seen. Subsegmental vessels are not well evaluated due to technical factors. 2. No dense parenchymal consolidation, pleural effusion, or pneumothorax. 3. Please see the dedicated interpretation of abdomen and pelvis for findings in that region.
--- NOTE | 2023-05-27 20:32 | ECG_ITS ---
APPROVED REPORT Exam: Resting ECG HR:82 bpm ECG Measurements Heart Rate 82 AXES LA 148 P 68 QRSd 98 QRS -4 QT 355 T 30 QTc 394 Conclusion SINUS RHYTHM LOW QRS VOLTAGE IN PRECORDIAL LEADS [QRS DEFLECTION < 1.0 mV IN CHEST LEADS] ? body habitus issue ABNORMAL ECG UNCONFIRMED REPORT Electronically signed by : Jean Carlos Adams MD 05/28/2023 10:04:57
[2023-05-27] MEDS: ONDANSETRON 4MG/2ML VIAL 4 MG IV (20:46)
[2023-05-27] MEDS: ACETAMINOPHEN 1,000MG/100ML VIAL 1000 MG IV (20:46)
[2023-05-27] MEDS: LACTATED RINGERS 1000ML 1,000 ML 999 ML IV (20:46)
[2023-05-27] MEDS: KETOROLAC 30MG/ML VIAL 15 MG IV (20:46)
[2023-05-27 20:51] LABS: Basophils # 0.1 K/mm3 (0-0.2); Basophils % 0.3 % (0.1-2.0); Eosinophils # 0.2 K/mm3 (0.0-0.4); Eosinophils % 0.9 % (0.1-12.0); Hematocrit 43.5 % (37.0-47.0); Hemoglobin 13.8 g/dL (12.2-16.2); Lymphocytes # 2.6 K/mm3 (0.7-4.5); Lymphocytes % 12.4 % (10-50); Mean Corpuscular HGB Conc 31.8 g/dL (31.8-35.4); Mean Corpuscular Hemoglobin 32.9 pg (27.0-31.2); Mean Corpuscular Volume 103.5 fl (81-99); Mean Platelet Volume 9.7 fl (7.4-10.4); Monocytes # 0.9 K/mm3 (0.1-1.0); Monocytes % 4.5 % (1.7-9.3); Neutrophils # 17.1 K/mm3 (1.8-7.8); Neutrophils % 81.9 % (37.0-80.0); Platelet Count 282 K/mm3 (142-424); Red Cell Distribution Width 14.2 % (11.5-17.5); White Blood Count 20.9 K/mm3 (4.8-10.8)
[2023-05-27 20:53] LABS: MANUAL DIFFERENTIAL MANUAL DIFFERENTIAL (MANUAL DIFF)
[2023-05-27 20:56] LABS: Lactic Acid 1.3 mmol/L (0.7-2.1)
[2023-05-27 20:57] LABS: Alanine Aminotransferase 23 U/L (12-78); Albumin Level 3.8 g/dl (3.5-5.0); Albumin/Globulin Ratio 1.4 (1.1-1.8); Alkaline Phosphatase 112 U/L (38-126); Anion Gap 9.2 mEq/L (5-15); Aspartate Amino Transferase 31 U/L (14-36); Bilirubin,Total 0.3 mg/dl (0.2-1.3); Blood Urea Nitrogen 14 mg/dl (7-17); Calcium 9.1 mg/dl (8.4-10.2); Carbon Dioxide 30 mmol/L (22.0-30.0); Chloride 106 mmol/L (98-107); Creatinine Clearance Estimated 93 mL/min (50-200); Estimated Glomerular Filt Rate 58 ml/min (>60); GFR (African American) 70 ML/MIN (>60); Globulin 2.8 g/dL (1.3-3.2); Glucose 107 mg/dl (74-100); Lipase 106 U/L (23-300); Potassium 4.2 mmoL/L (3.5-5.1); Sodium 141 mmol/L (136-145); Total Protein,Serum 6.6 g/dl (6.3-8.2)
[2023-05-27 21:10] LABS: Troponin I < 0.01 ng/ml (0.00-0.034)
[2023-05-27] MEDS: SODIUM CHLORIDE 0.9% 10ML SYR (RAD ONLY) 10 ML IV (21:16)
[2023-05-27] MEDS: IOPAMIDOL-370 (76%);100ML BOTTLE 75 ML IV (21:16)
[2023-05-27 21:17] LABS: Eosinophils % 1 % (0-3); Hypochromasia 1+; Lymphocytes % 11 % (10-50); Macrocytosis 1+; Monocytes % 6 % (2-9); Neutrophils % 82 % (42-76); Platelet Estimate Normal; Total Cells Counted 100
--- NOTE | 2023-05-27 21:36 | ED_ITS ---
Discharge Plan Disposition Patient Disposition: Home, Self-Care Condition: Good Prescriptions Prescriptions: No Action albuterol sulfate 90 mcg/actuation HFA aerosol inhaler 2 puffs INHALATION Q4HP PRN (Reason: asthma) Qty: 18 Patient Comments: INHALE TWO PUFF BY MOUTH EVERY 4 HOURS NEEDED FOR WHEEZING bisoprolol fumarate 5 mg tablet 5 mg PO DAILY folic acid 1 mg tablet 1 mg PO DAILY Stiolto Respimat 2.5-2.5 mcg/actuation mist 2 inh inhalation DAILY Patient Comments: INHALE 2 PUFFS BY MOUTH EVERY DAY Nurtec ODT 75 mg tablet,disintegrating 75 mg PO PRN loperamide 2 mg capsule 2 mg PO BID Patient Comments: TAKE ONE CAPSULE BY MOUTH TWICE DAILY MAY CAUSE DROWSINESS Gemtesa 75 mg tablet 75 mg PO DAILY Patient Comments: TAKE ONE TABLET BY MOUTH EVERY DAY methotrexate sodium 2.5 mg tablet 2.5 mg PO .4 pills Q wkly Veozah 45 mg tablet 45 mg PO DAILY Qty: 30 11RF omeprazole 20 mg capsule,delayed release(DR/EC) 20 mg PO DAILY venlafaxine 75 mg capsule,extended release 24hr 75 mg PO DAILY Patient Comments: TAKE ONE CAPSULE BY MOUTH EVERY DAY cyclobenzaprine 5 mg tablet 5 mg PO DAILY prednisone 5 mg tablet 5 mg PO DAILY Patient Comments: TAKE 1/2 TABLET BY MOUTH EVERY DAY --TAKE WITH FOOD-- prednisone 10 MG tablets,dose pack 5 mg PO DAILY buspirone 10 MG tablet 10 mg PO BID Referrals Follow up/Referrals: Sonia Jerez APRN [Primary Care Provider] - See instructions Activity Restrictions/Add. Instructions Additional Instructions/Restrictions: You were evaluated in the emergency department today. Please take Tylenol and ibuprofen at home every 4-6 hours as needed for pain. Follow-up closely with your primary care provider over the next 3 days for reassessment. Return to the emergency department for new or worsening symptoms. Clinical Impressions Clinical Impression: Right lateral abdominal pain Instructions Patient Instructions: DI for Acute Abdominal Pain Discharge ED Provider: Cindy Reece General Adult HPI General Chief complaint: Abdominal Pain Stated complaint: abd pain Time Seen by Provider: 05/27/23 20:14 Mode of Arrival: Ambulatory Source of Information: Patient Limitations: No Limitations Description of Symptoms (Recalled from ER Triage Doc. by RN): Patient states that she started having right side abd pain this afternoon. Patient states that she thought it was her IBS so she took gas pills and IBUprofen but it did not get better. History of Present Illness HPI narrative: This patient is a 53-year-old female with a history of COPD, obesity, IBS, hypertension, sarcoidosis on chronic steroids and methotrexate presenting to the emergency department for evaluation with concern for right-sided abdominal pain as well as difficulty taking a deep breath. She states that she took IBS that she took gas pills and ibuprofen, but her symptoms did not get any better. No other concerns, such as fevers, chills, nausea, vomiting, change in bowel movements, rashes, swelling, or other concerns. Symptoms started this morning. Patient does have a history of cholecystectomy and hernia repair. Related Data Home Medications Medication Instructions Recorded Confirmed albuterol sulfate 90 mcg/actuation 2 puffs inhalation Q4HP PRN asthma 02/05/19 05/08/23 aerosol inhaler #18 grams omeprazole 20 mg capsule,delayed 20 mg PO DAILY ACID REFLUX 11/18/19 05/08/23 release bisoprolol fumarate 5 mg tablet 5 mg PO DAILY Hypertension 01/31/20 05/08/23 folic acid 1 mg tablet 1 mg PO DAILY SARCOIDOSIS 01/31/20 05/08/23 buspirone 10 mg tablet 10 mg PO BID stomach 12/06/20 05/08/23 prednisone 10 mg tablets in a dose 5 mg PO DAILY steroid 12/06/20 05/08/23 pack cyclobenzaprine 5 mg tablet 5 mg PO DAILY 02/17/23 05/08/23 prednisone 5 mg tablet 5 mg PO DAILY 02/17/23 05/08/23 venlafaxine 75 mg capsule,extended 75 mg PO DAILY 02/17/23 05/08/23 release 24 hr loperamide 2 mg capsule 2 mg PO BID 05/08/23 05/08/23 methotrexate sodium 2.5 mg tablet 2.5 mg PO .4 pills Q wkly 05/08/23 05/08/23 rimegepant 75 mg disintegrating 75 mg PO PRN 05/08/23 05/08/23 tablet (Nurtec ODT) tiotropium 2.5 mcg-olodaterol 2.5 2 inh inhalation DAILY 05/08/23 05/08/23 mcg/actuation mist for inhalation (Stiolto Respimat) vibegron 75 mg tablet (Gemtesa) 75 mg PO DAILY 05/08/23 05/08/23 Previous Rx's Medication Instructions Recorded fezolinetant 45 mg tablet (Veozah) 45 mg PO DAILY #30 tabs 05/08/23 Allergies Allergy/AdvReac Type Severity Reaction Status Date / Time nickel Allergy Mild Rash Verified 05/08/23 13:36 [facility] Disclaimer: The information contained in this section may have been updated after the patient was seen, as this information can be updated by other users. Medical History COPD (chronic obstructive pulmonary disease) History of asthma Hx of gastric ulcer Vasomotor symptoms due to menopause Surgical History Hx of rotator cuff surgery Hx of tonsillectomy Family History Other Asthma Cancer Diabetes Stroke Social History Smoking Status: Former smoker tobacco type: cigarettes second hand exposure: No alcohol intake: never counseling provided: provider counseling substance use type: denies use current occupational status: unemployed and disabled Travel in the last 8 weeks: None household members: none housing: house current occupational exposures/hazards: No caffeine: Yes ROS Obtained: Yes All systems reviewed & no additional complaints except as documented Physical Exam General General appearance: alert and obese Head Head exam: atraumatic and normocephalic Eye Eye exam: Present normal appearance, PERRL and EOMI ENT ENT exam: Present normal exam, normal oropharynx, mucous membranes moist and normal external ear exam Neck Neck exam: Present normal inspection, full ROM and trachea midline; Absent tenderness Chest Chest inspection: Present normal inspection and symmetric chest wall rise; Absent tenderness Respiratory Respiratory exam: Present normal lung sounds bilaterally; Absent respiratory distress, wheezes, stridor or accessory muscle use Cardiovascular Cardiovascular exam: Present regular rate and normal rhythm Abdominal Exam Abdominal exam: Present soft, tenderness (Right-sided) and normal bowel sounds; Absent distention, guarding, rebound or rigidity Extremities Exam Extremities exam: Present normal inspection, full ROM and normal capillary refill; Absent tenderness or edema Back Exam Back exam: Present normal inspection and full ROM; Absent tenderness Neurological Exam Neurological exam: Present alert, oriented X3, CN II-XII intact and normal gait; Absent motor sensory deficit Psychiatric Psychiatric exam: Present normal affect and normal mood Skin Skin exam: Present warm and dry Medical Decision Making Medical Records Medical records reviewed: Yes I reviewed the patient's medical records. Javon Inquiry Pt receiving controlled substance: No Vital Signs: 05/27/23 20:07 05/27/23 21:55 05/27/23 22:00 Temperature 99.1 F Temperature Source Oral Pulse Rate 79 81 Pulse Rate [Radial] 89 Respiratory Rate 20 15 16 Blood Pressure 114/65 107/66 L Blood Pressure [Right Arm] 106/53 L Blood Pressure Mean [Right Arm] 70 Blood Pressure Source Blood Pressure Source [Right Arm] Automatic Cuff Blood Pressure Position Blood Pressure Position [Right Arm] Sitting 02 Sat by Pulse Oximetry 94 L 96 97 Oxygen Delivery Method Room Air 05/27/23 22:42 Temperature 98.2 F Temperature Source Oral Pulse Rate 80 Pulse Rate [Radial] Respiratory Rate 17 Blood Pressure 97/58 L Blood Pressure [Right Arm] Blood Pressure Mean [Right Arm] Blood Pressure Source Automatic Cuff Blood Pressure Source [Right Arm] Blood Pressure Position Sitting Blood Pressure Position [Right Arm] 02 Sat by Pulse Oximetry Oxygen Delivery Method Room Air Lab Data Lab results reviewed: Yes I reviewed the patient's lab results. Lab Results 05/27/23 20:40: WBC 20.9 H*, RBC 4.20, Hgb 13.8, Hct 43.5, MCV 103.5 H, MCH 32.9 H, MCHC 31.8, RDW 14.2, Plt Count 282, MPV 9.7, Neut % (Auto) 81.9 H, Lymph % (Auto) 12.4, Mcdonald % (Auto) 4.5, Eos % (Auto) 0.9, Baso % (Auto) 0.3, Neut # (Auto) 17.1 H, Lymph # (Auto) 2.6, Mcdonald # (Auto) 0.9, Eos # (Auto) 0.2, Baso # (Auto) 0.1, Total Counted 100, Neutrophils % (Manual) 82 H, Lymphocytes % (Manual) 11, Monocytes % (Manual) 6, Eosinophils % (Manual) 1, Platelet Estimate Normal, Hypochromasia 1+, Macrocytosis 1+, Sodium 141, Potassium 4.2, Chloride 106, Carbon Dioxide 30, Anion Gap 9.2, BUN 14, Creatinine 1.00, Estimated Creat Clear 93, Estimated GFR 58 L, Est GFR ( Amer) 70, Glucose 107 H, Lactate 1.3, Calcium 9.1, Total Bilirubin 0.3, AST 31, ALT 23, Alkaline Phosphatase 112, Troponin I < 0.01, Total Protein 6.6, Albumin 3.8, Globulin 2.8, Albumin/Globulin Ratio 1.4, Lipase 106 05/27/23 21:52: Urine Color Yellow, Urine Appearance Clear, Urine pH 7.0, Ur Specific [place] 1.015, Urine Protein Negative, Urine Glucose (UA) Negative, Urine Ketones Negative, Urine Blood Negative, Urine Nitrate Negative, Urine Bilirubin Negative, Urine Urobilinogen 4.0, Ur Leukocyte Esterase Negative, Urine RBC Occasional, Urine WBC None, Ur Squamous Epith Cells Occasional, Urine Bacteria Trace 05/27/23 20:40 05/27/23 20:40 Orders (Tests/Meds): ED MEDICATIONS Discontinued Medications Generic Name Dose Route Start Last Admin Trade Name Reinierq PRN Reason Stop Dose Admin Acetaminophen 1,000 mg 05/27/23 20:26 05/27/23 20:46 Acetaminophen 1,000mg/100ml Vial IV 05/27/23 20:27 1,000 mg ONCE ONE Administration Lactated Ringer's 1,000 mls @ 999 mls/hr 05/27/23 20:26 05/27/23 20:46 Lactated Ringer's 1000 Ml Bag IV 05/27/23 21:26 999 mls/hr .Q1H1M ONE Administration Iopamidol 75 ml 05/27/23 21:15 05/27/23 21:16 Iopamidol-370 (76%);100ml Bottle IV 05/27/23 21:16 75 ml ONCE ONE Administration Ketorolac Tromethamine 15 mg 05/27/23 20:26 05/27/23 20:46 Ketorolac 30mg/Ml Vial IV 05/27/23 20:27 15 mg ONCE ONE Administration Ondansetron HCl 4 mg 05/27/23 20:26 05/27/23 20:46 Ondansetron 4mg/2ml Vial IV 05/27/23 20:27 4 mg ONCE ONE Administration Sodium Chloride 10 ml 05/27/23 21:15 05/27/23 21:16 Sodium Chloride 0.9% 10ml Syr (Rad Only) IV 06/26/23 21:14 10 ml NEEDED PRN Administration Maintain IV Site ORDERS Category Date Time Status CT abdomen pelvis w con Stat Cat Scan 05/27/23 20:[address] angio chest PE protocol Stat Cat Scan 05/27/23 20:25 Completed Complete Blood Count Auto Diff Stat Lab 05/27/23 20:40 Completed Comprehensive Metabolic Panel Stat Lab 05/27/23 20:40 Completed Lactic Acid Stat Lab 05/27/23 20:40 Completed Lipase Stat Lab 05/27/23 20:40 Completed Troponin I Stat Lab 05/27/23 20:40 Completed Urinalysis and Microscopic Stat Lab 05/27/23 21:52 Completed ECG Data Tracing #1: Normal sinus rhythm with a ventricular rate of [address] changes concerning for ischemia. ECG initial impression date: 05/27/23 ECG initial impression time: 20:33 Medical Decision Narrative: In summary, this patient is a 53-year-old female presenting to the Emergency Department for evaluation of right-sided abdominal pain as well as pain when taking a deep breath. Differential diagnoses considered include but are not limited to colitis, pancreatitis, gastroenteritis, IBS flare, IBD, bowel obstruction, constipation, ACS, PE. Ruling out the most morbid conditions drove assessment. On exam, the patient is nontoxic-appearing. She has right-sided abdominal t enderness but otherwise abdominal exam is benign. No significant tachycardia or hypoxia, though she does complain of right-sided pain when taking a deep breath. Workup included CBC, CMP, lipase, lactic acid, troponin, EKG, CTA chest, and CT abdomen and pelvis with IV contrast. She is given a bolus of IV fluids as well as IV Toradol, acetaminophen, and Zofran for symptomatic improvement. EKG ob tained is reassuring without acute ST waves. I independently interpreted CT scans prior to the radiologist read and noted no obvious acute inflammation, bowel obstruction, PE, or pneumonia. Please see their read for final interpretation. Labs were obtained that demonstrated leukocytosis of 20. On review, she chronically has leukocytosis. She does note that she is on steroids. It does not look like her white blood cell count is typically this high. I considered sepsis, however the patient has no fever, no tachycardia, no tachypnea or hypoxia, and lactic acid is normal. Troponin is negative and EKG is normal, and patient has not really had significant chest pain, only right sided abdominal pain and tenderness. On reassessment, patient had significant improvement after administration of interventions above. She is resting comfortably with normal vital signs on cardiac telemetry and benign abdominal and cardiopulmonary exams. Her vital cell count elevation does concern me, however this is nonspecific. Given improvement in symptoms and otherwise reassuring workup, I feel patient is appropriate for discharge. she was given very strict return precautions should she develop fever, chills, nausea, vomiting, worsening pain, or other concerns. She was also given instructions for very close follow-up with her primary care provider for recheck of her white blood cell count and other labs. She was discharged in stable condition after all questions were answered. Critical Care Critical Care Time Critical Care Time: No
[2023-05-27 21:55] VITALS: BP 114/65; PULSE 79; RESP 15; O2SAT 96
[2023-05-27 21:57] LABS: Microscopic, Urine URINE MICROSCOPIC (MICROSCOPIC)
[2023-05-27 22:00] VITALS: BP 107/66; PULSE 81; RESP 16; O2SAT 97
--- NOTE | 2023-05-27 22:12 | PC.NURSE ---
Patient drinking water. No nausea reported at this time.
[2023-05-27 22:25] LABS: Appearance,Urine CLEAR (Clear); Bilirubin,Urine Negative (Negative); Blood, Urine Negative (Negative); Color,Urine YELLOW (Yellow); Glucose,Urine (UA) Negative (Negative); Ketones,Urine Negative (Negative); Leukocyte Esterase,Urine Negative (Negative); Nitrate,Urine Negative (Negative); Protein,Urine Negative (Negative); Specific Gravity, Urine 1.015 (1.005-1.030)
[2023-05-27 22:42] VITALS: BP 97/58; PULSE 80; RESP 17; TEMP 36.8; O2SAT 97
[2023-05-27 22:58] LABS: Bacteria,Urine Trace /lpf; RBC,Urine Occasional #/hpf (0-3); Squamous Epithelial Cell,Urine Occasional #/hpf (0-5)
== END 2023-05-27 22:50 | disposition home or self-care (01) ==
PROVIDERS: Emergency Provider Emergency Medicine; PCP Nurse Practitioner Family
DX: R10.9 Unspecified abdominal pain (principal); K58.9 Irritable bowel syndrome, unspecified; J44.9 Chronic obstructive pulmonary disease, unspecified; D86.9 Sarcoidosis, unspecified; I10 Essential (primary) hypertension
CPT/HCPCS: 71275; 74177; 80053; 81001; 83605; 83690; 84484; 85007; 85025; 93005; 96361; 96374; 96375; 99285; J0131; J2405; Q9967

== ENCOUNTER 2023-05-29 15:34 | Outpatient (CLI) | payer MEDICARE, MEDICAID, SELFPAY ==
[2023-05-29 15:48] LABS: Basophils # 0.1 K/mm3 (0-0.2); Basophils % 0.4 % (0.1-2.0); Eosinophils # 0.2 K/mm3 (0.0-0.4); Eosinophils % 0.7 % (0.1-12.0); Hematocrit 42.6 % (37.0-47.0); Hemoglobin 13.4 g/dL (12.2-16.2); Lymphocytes # 1.7 K/mm3 (0.7-4.5); Lymphocytes % 8.3 % (10-50); Mean Corpuscular HGB Conc 31.4 g/dL (31.8-35.4); Mean Corpuscular Hemoglobin 32.9 pg (27.0-31.2); Mean Corpuscular Volume 104.8 fl (81-99); Mean Platelet Volume 10.4 fl (7.4-10.4); Monocytes # 0.8 K/mm3 (0.1-1.0); Monocytes % 3.8 % (1.7-9.3); Neutrophils % 86.9 % (37.0-80.0); Platelet Count 284 K/mm3 (142-424); Red Blood Count 4.07 M/mm3 (4.20-5.40); Red Cell Distribution Width 14.5 % (11.5-17.5); White Blood Count 20.7 K/mm3 (4.8-10.8)
[2023-05-29 15:52] LABS: MANUAL DIFFERENTIAL MANUAL DIFFERENTIAL (MANUAL DIFF)
[2023-05-29 16:58] LABS: Alanine Aminotransferase 17 U/L (12-78); Albumin Level 3.4 g/dl (3.5-5.0); Albumin/Globulin Ratio 1.4 (1.1-1.8); Alkaline Phosphatase 122 U/L (38-126); Amylase 36 U/L (30-110); Anion Gap 8.3 mEq/L (5-15); Aspartate Amino Transferase 23 U/L (14-36); Bilirubin,Total 0.6 mg/dl (0.2-1.3); Blood Urea Nitrogen 15 mg/dl (7-17); Calcium 9.2 mg/dl (8.4-10.2); Carbon Dioxide 30 mmol/L (22.0-30.0); Chloride 105 mmol/L (98-107); Estimated Glomerular Filt Rate 52 ml/min (>60); GFR (African American) 63 ML/MIN (>60); Globulin 2.4 g/dL (1.3-3.2); Glucose 108 mg/dl (74-100); Lipase 48 U/L (23-300); Potassium 4.3 mmoL/L (3.5-5.1); Sodium 139 mmol/L (136-145); Total Protein,Serum 5.8 g/dl (6.3-8.2)
[2023-05-29 17:27] LABS: Anisocytosis 1+; Hypochromasia 2+; Lymphocytes % 15 % (10-50); Macrocytosis 1+; Monocytes % 2 % (2-9); Neutrophils % 83 % (42-76); Platelet Estimate Normal; Total Cells Counted 100
== END 2023-05-29 23:59 ==
LOC: LAB 15:35
PROVIDERS: PCP Nurse Practitioner Family; Visit Provider Nurse Practitioner Family
DX: R50.9 Fever, unspecified; D84.821 Immunodeficiency due to drugs; Z79.899 Other long term (current) drug therapy
CPT/HCPCS: 36415; 80053; 82150; 83690; 85007; 85025

== ENCOUNTER 2023-09-22 08:58 | Outpatient (CLI) | payer MEDICARE, MEDICAID, SELFPAY ==
--- NOTE | 2023-09-22 09:07 | FL_ITS ---
FINAL REPORT CLINICAL HISTORY: FT 7:11 DAP 427.55 DYSPHAGIA FINDINGS: UPPER GI WITH SBFT HISTORY: Epigastric pain with gastroesophageal reflux disease. PROCEDURE: The patient ingested barium. Spot and overhead films were obtained. Additional barium was administered for a SBFT. Number of images: 41 Fluoro time: 7 minutes 11 seconds DAP: 427.55 uGym2. FINDINGS: UGI: The esophagus is normal. There are postoperative changes at the gastroesophageal junction consistent with patient's known hernia repair. There is no hiatal hernia. A 13 mm barium tablet passes through the esophagus into the stomach without delay. There is no gastroesophageal reflux. Peristalsis is normal. There is retained debris throughout the stomach. The duodenal bulb is normal. SBFT: The cooler operator film is normal. There is no evidence of obstruction. The mucosal fold pattern is normal. The terminal ilium is normal. IMPRESSION: Retained debris throughout the stomach, consider gastroparesis. Films reviewed , interpreted and dictated by Dr. Friend. Transcribed by Socrates Christianson PA-C. Reviewed, Interpreted and Dictated by Wale Friend MD Transcribed by KEMAR Mcnulty Authenticated and [facility]
[2023-09-22] MEDS: BARIUM SULFATE(LIQUID E-Z-PAQUE);355ML BOTTLE 355 ML PO (10:38)
[2023-09-22] MEDS: BARIUM SULFATE (E-Z-HD 340GM);135ML BOTTLE 135 ML PO (10:38)
[2023-09-22] MEDS: DIATRIZOATE MEG 66% & DIATRIZOATE NA 10% 30ML UDC 30 ML PO (10:38)
== END 2023-09-22 23:59 | disposition home or self-care (01) ==
LOC: RAD 09:00
PROVIDERS: Visit Provider Surgery
DX: R13.10 Dysphagia, unspecified (principal)
CPT/HCPCS: 74246; 74248; Q9963

== ENCOUNTER 2023-10-10 07:20 | Day surgery (SDC) | payer MEDICARE, MEDICAID, SELFPAY ==
[2023-10-10] MEDS: LACTATED RINGERS 1000ML 1,000 ML 25 ML IV (07:35)
[2023-10-10 07:40] VITALS: BP 109/66; PULSE 75; RESP 18; TEMP 36.3; O2SAT 96; BMI 33.7
--- NOTE | 2023-10-10 07:54 | P.PCN_ITS ---
Procedure: Date: 10/10/23 Patient Date of :: 1970 Procedure Performed:: EGD with biopsies Total colonoscopy Indications:: Patient presents for EGD and colonoscopy. She is a 53-year-old female with history of COPD, hypertension, sarcoidosis whom I had recently seen in the office on 09/04/2023 as a referral from Tamiko Jerez for possible colonoscopy.. I had seen her for cholecystectomy in 2010. She has undergone EGD with both and Dr. Augustine in anticipation of possible hiatal hernia repair. She did undergo hiatal hernia repair. I saw her in 2019 for symptoms of diarrhea. She does have family history of colon cancer. Plan was for colonoscopy at that time. She did develop COVID. She underwent EGD and colonoscopy with Dr. Anil Salter on 06/12/2020. EGD revealed cricopharyngeal spasm which was dilated, nonerosive GERD, moderate esophageal dysmotility, small recurrent hiatal hernia, bile reflux mild to moderate linear reactive gastropathy. Colonoscopy at that time, 06/12/2020, was normal to the terminal ileum. 10-year follow-up was recommended. Dietary measures including bulk fiber supplementation, probiotic, and IBgard were advised. Patient recently underwent FIT testing which was positive. She was sent for colonoscopy. Denies any gross blood. She does describe symptoms of postprandial satiety stating that sometimes food feels like it gets stuck in her upper abdomen. She does ask about decreasing her fiber supplementation and MiraLAX which Dr. Salter office had advised. She states that she has IBS. Given her upper GI postprandial symptoms I ordered an upper GI small bowel follow-through prior to proceeding with immediate colonoscopy. Somewhat interestingly this reveals retained debris throughout the stomach, consider gastroparesis . There is no delay in passage of the 13 mm barium tablet. Peristalsis appeared normal. The small bowel follow-through revealed no evidence of any obstruction with a normal mucosal fold pattern. Plan to proceed with colonoscopy due to history of polyps, positive FIT testing, family history of colon cancer and also for upper endoscopy as well given her upper GI symptoms and abnormal upper GI showing debris consistent with possible gastric outlet obstruction or gastroparesis. This would be beneficial to do both procedures the same day as she would be on merely clear liquids the day before which would aid in gastric clearing. . Performing Provider:: Didier Ocampo MD Referring Provider:: Tamiko Jerez Sedation:: MAC sedation Procedure:: Patient history was obtained and appropriate physical examination was performed. Patient's medications and allergies were reviewed. Informed consent was obtained after explaining the benefits, alternatives, and risks of the procedure including, but not limited to, bleeding, perforation, missed lesions, and adverse reaction to anesthesia medications. Patient was transported to endoscopy procedure room. Patient was connected to monitoring devices. Throughout the procedure the patient's blood pressure, pulse, and oxygen saturations were monitored continuously. Patient identification and planned procedure were verified by the staff. Attention was first turned to upper endoscopy. Olympus endoscope was inserted via the oropharynx. There was some minor cricopharyngeal spasm. There were findings consistent with mild esophageal dysmotility. Gastroesophageal junction was encountered at 38 cm. There is possible focus of Hernandez's esophagus. Stomach was cannulated. Retroflexion revealed bilious liquid and some retained medications from the evening before. Retroflexion revealed tiny recurrent hernia and there were some postsurgical changes at the fundus. There was minor gastropathy/gastritis. Pylorus was traversed. No evidence of any definite pyloric stenosis. Duodenum appeared normal. Endoscope was withdrawn into the gastric lumen and gastric antral mucosal biopsy was obtained. A couple biopsies were obtained at the gastroesophageal junction. A couple of distal esophageal biopsies were obtained to evaluate for microscopic esophagitis. Endoscope was withdrawn. Next attention was turned to colonoscopy. Patient was positioned in lateral decubitus position. Digital anorectal exam was performed. Variable stiffness Olympus colonoscope was inserted and advanced under direct visualization to the cecum. Advancement of the colonoscope was somewhat difficult due to some significant floppiness and tortuosity and redundancy of the colon. Adequacy of the colonic preparation was noted. Colonic preparation was rather poor with a significant amount of particulate liquid stool throughout the colon. High- volume trans colonoscopic irrigation and suctioning was performed to allow for adequate visualization. The colonoscope was advanced a short distance into the terminal ileum. The colonoscope was then slowly withdrawn while carefully examining the color, texture, anatomy, and integrity of the mucosoa circumferentially. Within the rectum retroflexion was performed. Colonoscope was then withdrawn. Findings:: Minor cricopharyngeal spasm Mild esophageal dysmotility Gastroesophageal junction at 38 cm Small recurrent hiatal hernia with postsurgical changes of the fundus Some retained bilious liquid and medications from the evening before within the stomach Mild to moderate nonerosive diffuse gastritis Fair colonic preparation despite irrigation and suctioning Recommendations:: Patient may very well have significant gastroparesis which could be contributing to her symptoms of dysphagia and feeling like food becomes stuck in her stomach. I would recommend repeat colonoscopy in 1 year or so with alternate maximum prep. Complications:: None immediately apparent Estimated blood obtained (mL): 2 Colonoscopy Component Colonoscopy Component Was a colonoscopy performed during today's procedure?: Yes Recommended follow up colonoscopy of at least 10 years?: No If no, follow up colonoscopy recommended in ___ years?: See above Reason for not recommending >/= 10 yr follow-up interval?: See above
--- NOTE | 2023-10-10 08:01 | EXP.ANES.CKL ---
[facility] Disclaimer: The information contained in this section may have been updated after the patient was seen, as this information can be updated by other users. Medical History Right ear pain Foreign body in ear Vasomotor symptoms due to menopause Hx of gastric ulcer History of asthma COPD (chronic obstructive pulmonary disease) Surgical History (Updated 10/10/23 @ 07:38 by You Billingsley RN) History of cholecystectomy S/P right knee arthroscopy H/O umbilical hernia repair Hx of tonsillectomy Hx of rotator cuff surgery Family History Other Asthma Cancer Diabetes Stroke Social History Smoking Status: Former smoker tobacco type: cigarettes second hand exposure: No alcohol intake: never counseling provided: provider counseling substance use type: denies use current occupational status: unemployed and disabled Travel in the last 8 weeks: None household members: none housing: house current occupational exposures/hazards: No caffeine: Yes [facility] Anesthesia Checklist Patient Identification Patient Identification: Arm Band Structural Data Admitted From: Home Planned Operative Procedure/s: EGD/Colonoscopy Consent for Planned Operative Procedure(s) Verified: Yes Verified Documents: Surgical Consent and History and Physical NPO Status Verified Time NPO: 00:00 Additional verifications Anesthesia Reactions: No Hx Blood Transfusions: No Blood Transfusion Reaction: No Airway Assessment Mallampati Score:: Class II C-Spine Mobility Assessed: Yes TMJ Mobility Assessed: Yes Dentition: Good Dentition Neurological Assessment Level of Consciousness: Awake, Alert and Appropriate Anesthesia Plan Anesthesia Risk discussed: Yes Anesthesia Plan: Verified ASA Class: III Anesthesia Type: MAC
[2023-10-10 08:05] VITALS: O2SAT 99
[2023-10-10 08:53] VITALS: BP 96/47; PULSE 72; RESP 18; TEMP 36.3; O2SAT 99
[2023-10-10 09:03] VITALS: BP 88/59; PULSE 73; RESP 18; O2SAT 99
[2023-10-10 09:13] VITALS: BP 89/45; PULSE 71; RESP 18; O2SAT 98
[2023-10-10 09:23] VITALS: BP 100/54; PULSE 68; RESP 18; O2SAT 99
== END 2023-10-10 09:23 | disposition home or self-care (01) ==
PROVIDERS: PCP Nurse Practitioner Family; Visit Provider Surgery
PROC: 0DJ08ZZ Inspection of Upper Intestinal Tract, Via Natural or Artificial Opening Endoscopic (ICD-10-PCS; CPT 43235; principal; 2023-10-10 08:30)
DX: R13.10 Dysphagia, unspecified (principal); Z80.0 Family history of malignant neoplasm of digestive organs; Z12.11 Encounter for screening for malignant neoplasm of colon; J39.2 Other diseases of pharynx; K29.70 Gastritis, unspecified, without bleeding; K31.9 Disease of stomach and duodenum, unspecified; K44.9 Diaphragmatic hernia without obstruction or gangrene
CPT/HCPCS: 43239; G0105; J2704; J7120

== ENCOUNTER 2023-10-16 16:06 | Outpatient (CLI) | payer MEDICARE, MEDICAID, SELFPAY ==
--- NOTE | 2023-10-16 16:13 | XR_ITS ---
PROCEDURE INFORMATION: Exam: XR Left Shoulder Exam date and time: 10/16/2023 4:23 PM Age: 53 years old Clinical indication: Pain; Shoulder; Left; Additional info: Left arm TECHNIQUE: Imaging protocol: Radiologic exam of the left shoulder. Views: 2 or more views. COMPARISON: CT ANGIO CHEST PE PROTOCOL 05/27/2023 9:05 PM FINDINGS: Bones/joints: Normal. Soft tissues: Normal. IMPRESSION: No acute findings.
== END 2023-10-16 23:59 | disposition home or self-care (01) ==
LOC: RAD 16:08
PROVIDERS: PCP Nurse Practitioner Family; Visit Provider Nurse Practitioner Family
DX: M79.602 Pain in left arm (principal)
CPT/HCPCS: 73030

== ENCOUNTER 2023-11-19 09:46 | Outpatient (CLI) | payer MEDICARE, MEDICAID, SELFPAY ==
--- NOTE | 2023-11-19 09:48 | NM_ITS ---
FINAL REPORT TECHNIQUE: Sequential anterior images were obtained after the ingestion of 2 whole eggs, 1 piece of toast, and 1 glass of water radiolabeled with 0.49 mCi technetium 99M sulfur colloid. CLINICAL HISTORY: bloating COMPARISON: None FINDINGS: GASTRIC EMPTYING SCAN Static images show normal emptying of the stomach into the small bowel. Based on the time activity curve, the estimated half-emptying time is abnormally prolonged at 94 minutes. IMPRESSION: Abnormally prolonged gastric emptying study consistent with gastroparesis versus partial outlet obstruction. Reviewed, Interpreted and Dictated by Ramin Acosta MD Transcribed by Manjula Reyes Authenticated and [facility]
[2023-11-19] MEDS: TC99M SULF.COLLOID;1 DOSE (UP TO 20 MCI) IV (10:30)
== END 2023-11-19 23:59 | disposition home or self-care (01) ==
PROVIDERS: PCP Nurse Practitioner Family; Visit Provider Surgery
DX: R14.0 Abdominal distension (gaseous) (principal)
CPT/HCPCS: 78264; A9541

== ENCOUNTER 2023-12-31 12:45 | Outpatient (CLI) | payer MEDICARE, MEDICAID, SELFPAY ==
--- NOTE | 2023-12-31 12:45 | MM_ITS ---
PROCEDURE INFORMATION: Exam: MG Bilateral Screening 3D Mammography Exam date and time: 12/31/2023 12:41 PM Age: 53 years old Clinical indication: Screening exam. TECHNIQUE: Imaging protocol: Bilateral Screening tomosynthesis and 2D mammography including computer-aided detection (CAD) when performed. COMPARISON: 1. MG MM DIG SCREENING MAMM BI W/CAD 12/16/2022 1:11 PM 2. MG MM DIG SCREENING MAMM BI W/CAD 11/30/2021 12:59 PM FINDINGS: MAMMOGRAPHY: Breast composition: There are scattered areas of fibroglandular density. Mass: No suspicious masses. Architectural distortion: None. Calcifications: No suspicious calcifications. Asymmetric density: None. Skin thickening: None. Axillary adenopathy: None. IMPRESSION: No mammographic evidence of malignancy. Annual screening is recommended unless otherwise clinically indicated. ASSESSMENT: BI-RADS Category 1: Negative.
== END 2023-12-31 23:59 | disposition home or self-care (01) ==
LOC: RAD 12:45
PROVIDERS: PCP Nurse Practitioner Family; Visit Provider Obstetrics & Gynecology
DX: Z12.31 Encounter for screening mammogram for malignant neoplasm of breast (principal)
CPT/HCPCS: 77063; 77067

== ENCOUNTER 2024-01-06 11:43 | Outpatient (CLI) | payer MEDICARE, MEDICAID, SELFPAY ==
[2024-01-06 12:47] VITALS: BMI 32.5
== END 2024-01-06 23:59 | disposition home or self-care (01) ==
LOC: DIETICIAN 11:44
PROVIDERS: PCP Nurse Practitioner Family; Visit Provider Nurse Practitioner Family
DX: K31.84 Gastroparesis (principal)
CPT/HCPCS: 97802

== ENCOUNTER 2024-06-10 16:47 | Outpatient (CLI) | payer MEDICARE, MEDICAID, SELFPAY ==
[2024-06-10 17:44] LABS: Cholesterol 230 mg/dl (140-200); HDL Cholesterol 58 mg/dl (40-60); Triglycerides 286 mg/dl (30-150); VLDL Cholesterol 57 mg/dL (0-40)
[2024-06-10 17:55] LABS: Direct LDL Cholesterol 142.57 mg/dL (100-129)
[2024-06-11 14:24] LABS: Chloride 106 mmol/L (98-107)
[2024-06-11 14:25] LABS: Albumin Level 4.1 g/dl (3.5-5.0); Potassium 5.2 mmoL/L (3.5-5.1); Sodium 137 mmol/L (136-145)
[2024-06-11 14:27] LABS: Alanine Aminotransferase 50 U/L (12-78); Aspartate Amino Transferase 34 U/L (14-36); Blood Urea Nitrogen 13 mg/dl (7-17); Estimated Glomerular Filt Rate 58 ml/min (>60); GFR (African American) 70 ML/MIN (>60)
[2024-06-11 14:28] LABS: Albumin/Globulin Ratio 2.2 (1.1-1.8); Alkaline Phosphatase 125 U/L (38-126); Anion Gap 10.2 mEq/L (5-15); Bilirubin,Total 0.2 mg/dl (0.2-1.3); Calcium 9.2 mg/dl (8.4-10.2); Carbon Dioxide 26 mmol/L (22.0-30.0); Globulin 1.9 g/dL (1.3-3.2); Glucose 119 mg/dl (74-100)
== END 2024-06-10 23:59 | disposition home or self-care (01) ==
LOC: LAB 16:48
PROVIDERS: PCP Nurse Practitioner Family; Visit Provider Obstetrics & Gynecology
DX: N95.1 Menopausal and female climacteric states (principal)
CPT/HCPCS: 80053; 80061

== ENCOUNTER 2024-06-21 15:51 | Outpatient (CLI) | payer MEDICARE, MEDICAID, SELFPAY ==
--- NOTE | 2024-06-21 15:58 | XR_ITS ---
FINAL REPORT CLINICAL HISTORY: ACUTE COUGH, ACUTE FEBRILE ILLNESS, shortness of breath COMPARISON: 02/08/2020 FINDINGS: PA and lateral views of the chest were obtained. The cardiac and mediastinal silhouettes are within normal limits. There are low lung volumes. The lungs are clear. There is no pleural effusion or pneumothorax. No acute osseous abnormality is identified. IMPRESSION: No radiographic evidence of acute cardiac or pulmonary disease. Reviewed, Interpreted and Dictated by Estefanía Franklin MD Transcribed by Manjula Reyes Authenticated and [facility]
[2024-06-21 16:08] LABS: Coronavirus 19, PCR Not Detected (NotDetected); Human Rhinovirus Not Detected (NotDetected); Influenza A, PCR Not Detected (NotDetected); Influenza B, PCR Not Detected (NotDetected); Respiratory Syncytial Virus Not Detected (NotDetected)
== END 2024-06-21 23:59 | disposition home or self-care (01) ==
LOC: LAB 15:52
PROVIDERS: PCP Nurse Practitioner Family; Visit Provider Nurse Practitioner Family
DX: R50.9 Fever, unspecified (principal); R05.1 Acute cough; R06.02 Shortness of breath
CPT/HCPCS: 71046; 87631

== ENCOUNTER 2025-01-04 14:19 | Outpatient (CLI) | payer MEDICARE, MEDICAID, SELFPAY ==
--- OUTSIDE RECORDS SUMMARY | 2017-12-24 09:53 | XMS_ITS | Encounter Summary ---
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 [employer] Not on file Not on file Not on file documented as of this encounter Plan of Treatment Upcoming Encounters Date Type Department Care Team (Late st Contact Info) Description 04/25/2025 9:00 AM EST Procedure visit [facility] PULMONARY & CRITICAL CARE MEDICINE [address] [place] [address] 04/25/2025 9:30 AM EST Office Visit [facility] PULMONARY & CRITICAL CARE MEDICINE [address] [place] [phone] Jhon Mujica MD [address] [place] [address] 11/28/2025 1:30 PM EDT Office Visit [facility]OLOGY [address] [facility] [address] [place] [address] You Aldridge III, MD [address] [facility] [address] [place], [place] [phone] documented as of this encounter Procedures Procedure [...] documented as of this encounter Care Teams Production Expediter Relationship Specialty Start Date End Date Sonia Jerez APRN [facility] [address] [place] [address] PCP - General Family Medicine 09/11/17 10/18/19 documented as of this encounter
--- OUTSIDE RECORDS SUMMARY | 2021-08-02 12:42 | XMS_ITS | Encounter Summary ---
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 Not on file Not on file documented as of this encounter Plan of Treatment Upcoming Encounters Date Type Department Care Team (Late st Contact Info) Description 04/25/2025 9:00 AM EST Procedure visit [facility] PULMONARY & CRITICAL CARE MEDICINE [address] [place] [address] 04/25/2025 9:30 AM EST Office Visit [facility] PULMONARY & CRITICAL CARE MEDICINE [address] [place] [address] Jhon Mujica MD [address] [place] [address] 11/28/2025 1:30 PM EDT Office Visit [facility] [address] [facility] [address] [place] [address] You Aldridge III, MD [address] [facility] [address] [place], [place] [phone] documented as of this encounter Procedures Procedure [...] on filedocumented in this encounter Care Teams Candy Depositing Machine Operator Relationship Specialty Start Date End Date Sonia Jerez APRN [address] [place] [facility] [address] [place] [address] PCP - General Family Medicine 01/03/20 documented as of this encounter
--- OUTSIDE RECORDS SUMMARY | 2021-11-14 12:11 | XMS_ITS | Encounter Summary ---
Author Organization [facility] ystem Address [address] [place] [address] Care Team Providers Care Appraiser Auditor Name Role Phone MeriSonia pretty Tamiko KIRILL Primary Care Provid er Encounter Details Date Type Department Care Team (Late st Contact Info) Description 11/14/2021 12:11 PM EDT Hospital Encounter 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 PULMONARY & CRITICAL CARE MEDICINE [address] [place] [address] Jhon Mujica MD [address] [place] [address] 11/28/2025 1:30 PM EDT Office Visit [facility] [address] [facility] [address] [place] [address] You Aldridge III, MD [address] [facility] [address] [place], [place] [phone] documented as of this encounter Procedures Procedure [...] on filedocumented in this encounter Care Teams Appraiser Auditor Relationship Specialty Start Date End Date Sonia Jerez APRN [address] [facility] [address] [address] PCP - General Family Medicine 01/03/20 documented as of this encounter
--- OUTSIDE RECORDS SUMMARY | 2023-12-18 11:26 | XMS_ITS | Encounter Summary ---
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 Not on file Not on file documented as of this encounter Plan of Treatment Upcoming Encounters Date Type Department Care Team (Late st Contact Info) Description 04/25/2025 9:00 AM EST Procedure visit [facility] PUL[facility] CARE MEDICINE [address] [place] [address] 04/25/2025 9:30 AM EST Office Visit [facility] PULMONARY & CRITICAL CARE MEDICINE [address] [place] [address] Jhon Mujica MD [address] [place] [address] 11/28/2025 1:30 PM EDT Office Visit [facility] [address] [facility] [address] [place] [address] You Aldridge III, MD [address] [place], [place] [phone] documented as of this encounter Procedures Procedure [...] on filedocumented in this encounter Care Teams Community Mental Health Worker Relationship Specialty Start Date End Date Sonia Jerez KIRILL [place] [address] [place] [address] PCP - General Family Medicine 01/03/20 documented as of this encounter
--- OUTSIDE RECORDS SUMMARY | 2024-07-03 17:30 | XMS_ITS ---
Author Organization [facility] Address [address] [place] [address] Care Team Providers Care Wax Ball Molder Name Role Phone Jean Carlos Adams Primary Care Provider Sonia Jerez Unavailable [phone] Migration, Provider Unavailable Unavailable Allergies Allergen (clinical drug ingredient) Drug/Non Drug Allergy documented on EMR Reaction Allergy Type Onset Date Status nickel Nickel rash Allergy Active REASON FOR VISIT [facility] To [facility] Conversion Encounter Medications Medication SIG (Take, Route, Frequency, Duration) Notes Start Date End Date Status Pravastatin Sodium 20 MG 1 tab(s) orally once a day; Duration: 90 days 06/21/2024 Active Albuterol Sulfate HFA 108 (90 Base) MCG/ACT 2 puff(s) inhaled 4 times a day prn Active Gas Relief Extra Strength 125 MG 1 cap(s) orally 4 times a day (after meals and at bedtime); Duration: 5 day(s) prn Active NURTEC ODT 75 MG TAKE ONE TABLET BY MOUTH EVERY DAY NEEDED FOR MIGRAINE; Duration: 30 *Please review for potential replacement for e-prescription and drug interaction check* Active ONE-A-DAY WOMEN 50 PLUS MULTIPLE VITAMINS WITH MINERALS 1 TAB(S) ORALLY ONCE A DAY; Duration: 30 DAY(S) *Please review for potential replacement for e-prescription and drug interaction check* Active Methotrexate Sodium 7.5 MG 4 tabs orally once a week Active Veozah 45 MG 1 tab(s) orally once a day Active predniSONE 2.5 MG 1 tab(s) orally once a day Active Kaopectate 262 MG/15ML 30 mL orally 4 times a day prn Active MiraLax - DIRECTED ORALLY ONCE A DAY *Please review and pick correct strength-formulati on from [employer] options. If intended option is not shown, discontinue and re-order from Quick Search* Active busPIRone HCl 10 MG 1 tab(s) orally 2 times a day; Duration: 30 days Active Loperamide HCl 2 MG 1 cap(s) orally 2 times a day; Duration: 30 days Active Cyclobenzaprine HCl 5 MG 1 tab(s) orally once a day; Duration: 30 days Active Folic Acid 1 MG 1 tab(s) orally once a day; Duration: 90 days Active Doxycycline Hyclate 100 MG 1 cap(s) orally 2 times a day; Duration: 7 days 06/22/2024 Active Gemtesa 75 MG TAKE ONE TABLET BY MOUTH EVERY DAY; Duration: 30 Active Bisoprolol Fumarate 5 MG 1/2 tablet orally once a day; Duration: 90 days Active Omeprazole 20 MG 1 cap(s) orally once a day; Duration: 30 Active Stiolto Respimat 2.5 MCG-2.5 MCG/INH INHALE 2 PUFFS BY MOUTH EVERY DAY; Duration: 30 *Please review and pick correct strength-formulati on from [employer]ify options. If intended option is not shown, discontinue and re-order from Quick Search* Active Venlafaxine HCl ER 75 MG 1 cap(s) orally once a day; Duration: 90 days Active Diclofenac Sodium 1 % 2 gram applied topically 4 times a day; Duration: 14 days 10/17/2023 Active Encounters Encounter Location Date Provider Diagnosis [facility] [address] [place] [address] [facility] [address] [place], [place] [address] 07/03/2024 Provider Migration Mixed dyslipidemia E78.2 Assessments Encounter Date Diagnosis (ICD Code) Assessment Notes Treatment Notes Treatment Clinical Notes Section Notes 07/03/2024 Mixed dyslipidemia (ICD-10 - E78.2) Plan Of Treatment Medication Medication Name Sig Start Date Stop Date Notes Pravastatin Sodium 20 MG 1 tab(s) orally once a day; Duration: 90 days 06/21/2024 busPIRone HCl 10 MG 1 tab(s) orally 2 ti mes a day; Duration: 30 days Doxycycline Hyclate 100 MG 1 cap(s) oral ly 2 times a day; Duration: 7 days 06/22/2024 Next Appt Details Provider Name:Sonia Talamantes ce, 02/03/2025 02:00:00 PM, [address], [place], [address], Progress Notes * Allyson URBANOMjOB:1970 (54 yo F)Acc No.[id number]:07/03/2024 Patient: Nora ODELL Provider: Loretta daugherty Migration :1970 A ge:54 Y S ex:Female Date:07/03/2024 Address:[facility] [place], [id number] Pcp:Jean Carlos Adams Subjective: * Chief Complaints: * [facility] . [facility] * Medical History: * Medications: T aking Methotrexate Sodium 7.5 MG Tablet 4 tabs orally once a week , Taking predniSONE 2.5 MG Tablet 1 tab(s) orally once a day , Taking Veozah 45 MG Tablet 1 tab(s) orally once a day , Taking MiraLax - POWDER FOR RECONSTITUTION DIRECTED ORALLY ONCE A DAY , Notes to Pharmacist: *Please review and pick correct strength-formulation from [facility] options. If intended option is not shown, discontinue and re-order from Quick Search*, Taking Kaopectate 262 MG/15ML Suspension 30 mL orally 4 times a day , Notes to Pharmacist: prn, Taking Gas Relief Extra Strength 125 MG Capsule 1 cap(s) orally 4 times a day (after meals and at bedtime) , Notes to Pharmacist: prn, Taking Albuterol Sulfate HFA 108 (90 Base) MCG/ACT Aerosol Solution 2 puff(s) inhaled 4 times a day prn , Taking ONE-A-DAY WOMEN 50 PLUS MULTIPLE VITAMINS WITH MINERALS TABLET 1 TAB(S) ORALLY ONCE A DAY , Notes to Pharmacist: *Please review for potential replacement for e-prescription and drug interaction check*, Taking NURTEC ODT 75 MG TABLET, DISINTEGRATING TAKE ONE TABLET BY MOUTH EVERY DAY NEEDED FOR MIGRAINE , Notes to Pharmacist: *Please review for potential replacement for e-prescription and drug interaction check*, Taking Diclofenac Sodium 1 % Gel 2 gram applied topically 4 times a day , Taking Venlafaxine HCl ER 75 MG Capsule Extended Release 24 Hour 1 cap(s) orally once a day , Taking Gemtesa 75 MG Tablet TAKE ONE TABLET BY MOUTH EVERY DAY , Taking Omeprazole 20 MG Capsule Delayed Release 1 cap(s) orally once a day , Taking Bisoprolol Fumarate 5 MG Tablet 1/2 tablet orally once a day , Taking Stiolto Respimat 2.5 MCG-2.5 MCG/INH AEROSOL INHALE 2 PUFFS BY MOUTH EVERY DAY , Notes to Pharmacist: *Please review and pick correct strength-formulation from Relify options. If intended option is not shown, discontinue and re-order from Quick Search*, Taking Loperamide HCl 2 MG Capsule 1 cap(s) orally 2 times a day , Taking Folic Acid 1 MG Tablet 1 tab(s) orally once a day , Taking Cyclobenzaprine HCl 5 MG Tablet 1 tab(s) orally once a day * Allergies: N ickel: rash. Objective: * Vitals: Assessment: * Assessment: 1. M ixed dyslipidemia - E78.2 Plan: * Treatment: 2. O thers Start Doxycycline Hyclate Capsule, 100 MG, 1 cap(s), orally, 2 times a day, 7 days, 14 Capsule, Refills 0; S tart busPIRone HCl Tablet, 10 MG, 1 tab(s), orally, 2 times a day, 30 days, 60, Refills 2. * * Electronic signature of Prov ider Migration on 01/04/2025 at 02:23 PM EDT Sign off status: Pending * Provider: Loretta daugherty Migration Date: 0 07/03/2024 Generated for Simon rodriguez/Jarvis/Romelia on: 1 02:23 PM EDT
--- OUTSIDE RECORDS SUMMARY | 2024-08-09 13:25 | XMS_ITS | Encounter Summary ---
Author Organization [facility] ystem Address [address] [place] [address] Care Team Providers Care Precipitate Washer Name Role Phone MeriSonia pretty Tamiko KIRILL Primary Care Provid er Encounter Details Date Type Department Care Team (Late st Contact Info) Description 08/09/2024 1:25 PM EDT Hospital Encounter [facility] PULMONARY & CRITICAL CARE MEDICINE [address] [place] [phone] Social History Tobacco Use Types Packs/Day [...] Industry Job Start Date Job End Date [employer] in al[employer] Not on file Not on file Not on file documented as of this encounter Plan of Treatment Upcoming Encounters Date Type Department Care Team (Late st Contact Info) Description 04/25/2025 9:00 AM EST Procedure visit [facility] PULMON[facility]IT[facility] CARE MEDICINE [address] [place] [address] 04/25/2025 9:30 AM EST Office Visit [facility] PULMONARY & CRITICAL CARE MEDICINE [address] [place] [address] Jhon Mujica MD [address] [place] [address] 11/28/2025 1:30 PM EDT Office Visit [facility] CARDIOLOGY [address] [facility] [address] [place] [phone] You Aldridge III, MD [address] [facility] [address] [place], [place] [phone] documented as of this encounter Procedures Procedure [...] on filedocumented in this encounter Care Teams Precipitate Washer Relationship Specialty Start Date End Date Sonia Jerez APRN [address] [facility] [address] [place] [address] PCP - General Family Medicine 01/03/20 documented as of this encounter
--- OUTSIDE RECORDS SUMMARY | 2024-11-22 11:00 | XMS_ITS | Encounter Summary ---
Author Organization [facility] ystem Address [address] [place] [address] Care Team Providers Care Instrumentation Manager Name Role Phone Sonia Jerez KIRILL Primary Care Provid er Reason for Visit * Reason Comments Sarcoidosis F/u Encounter Details Date Type Department Care Team (Late st Contact Info) Description 11/22/2024 11:00 AM EDT Office Visit [facility] PULMONARY & CRITICAL CARE MEDICINE [address] [place] [address] Jhon Mujica MD [address] [place] [address] History of tobacco use, presenting hazards to health (Primary Dx); Multiple pulmonary nodules; Sarcoidosis Social History Tobacco Use Types Packs/Day Years [...] 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[employer] Not on file Not on file Not on file documented as of this encounter Last Filed Vital Signs Vital Sign Reading Time Taken Comments Blood Pressure 118/74 11/22/2024 10:43 AM EDT Pulse 72 11/22/2024 10:43 AM EDT Temperature 36 C (96.8 F) 11/22/2024 10:43 AM EDT Respiratory Rate - - Oxygen Saturation 95% 11/22/2024 10: 43 AM EDT Room air at rest Inhaled Oxygen Concentration - - Weight 98.4 kg (217 lb) 11/22/2024 10:4 3 AM EDT Height 162.6 cm (5' 4.02 ) 11/22/2024 1 0:43 AM EDT Body Mass Index 37.23 11/22/2024 10:43 AM EDT documented in this encounter Progress Notes * Jhon Mujica MD - 11/22/2024 11:00 AM EDT Pulmonary Follow-up Patient Care Team: Sonia Jerez APRN as PCP - General (Family Medicine) You Aldridge III, MD as Cane Flume Chute Operator (Cardiology) Shannon Germain MD (Obstetrics and Gynecology) Sonia Jerez APRN as Nurse Practitioner (Family Medicine) Jhon Mujica MD as Consulting Physician (Pulmonary Disease) Chief Complaint Patient presents with Sarcoidosis F/u Subjective 54 y.o. female smoker former smoker about 32 years who quit in 2017 with a history of COPD who was initially seen for complaints of dyspnea, fatigue, weight loss, and bumps on her legs . [facility] with subsequent PET scan revealingdiffuse metabolic activity in multiple lung nodules, nodes, liver, and spleen. She underwent bronchoscopy with EBUS and on one report was found to have necrotizing granulomas. The study however is felt to be nondiagnostic raising the differential of sarcoidosis or infectious granulomatous disease. Was subsequently seen by Dr. Rowland in early September for a second opinion. In addition to the above findings she was noted to have a left pleural effusion. She was subsequently scheduled for an elective left VATS with left lower lobe and lingular wedge resection of nodules, mediastinal lymph node dissection, and mechanical pleurodesis. This was performed 8/24/18 and patient was easily extubated afterthe procedure. Biopsies showed granulomas with negative cultures and stains for fungal/mycobacterial organisms. She was discharged with a diagnosis of sarcoidosis and was discharged on 30 mg of prednisone daily andBactrim DS 3 times weekly. Patient saw a estimator and drafter supervisor due to leg ulcers and there was no evidence of granulomas on biopsy. Patient has gradually had her prednisone weaned down. Patient had a cardiac event monitor for 13+ days on 09/29/2018 with predominantly sinus rhythm. Patient completed a prolonged prednisone taper in May 2019 for her sarcoidosis and was initially doing well. She had a relapse of her sarcoidosis in September 2019 with worsening dyspnea, perilymphatic nodular disease on CT imaging, and elevated serum angiotensin-converting enzyme level. She was started back on steroids (40 mg prednisone initially) in September 2019. The patient was started on 40 mg prednisone starting in September 2019 for a relapse of her sarcoidosis.This manifested as symptoms of dyspnea, perilymphatic nodular disease on CT scan, and elevated serum angiotensin-converting enzyme level. She reports she feels better currently. She subsequently completed a 30-day event monitor and was told she had premature atrial contractions. Methotrexate was started in November 2019 as a steroid sparing agent. Patient previously saw Dr. Aldridge with cardiology in May 2020who felt she had no evidence of current cardiac sarcoidosis. Followed up again with him in July 2021. Interval History: Patient is here for follow up. Previous bronchitis symptoms resolved. She is doing well from a respiratory standpoint. She is taking 10 mg of methotrexate once a week and 5 mg of prednisone daily. Noside effects of this. Patient saw ophthalmalogy in September 2023. History taken from: patient PMH/FH/Social History were reviewed and updated appropriately in the electronic medical record. Review of Systems: All other systems were reviewed and are negative. Exceptions are noted in the subjective or above. Objective Vital Signs Temp: [96.8 ??F (36 ??C)] 96.8 ??F (36 ??C) Heart Rate: [72] 72 BP: (118)/(74) 118/74 No intake/output data recorded. Body mass index is 37.23 kg/m??. Physical Exam: Constitutional: Alert, cooperative, in no acute distress Head: Normocephalic, without obvious abnormality, atraumatic Eyes: Lids and lashes normal, conjunctivae and sclerae normal, no icterus, no pallor, corneas clear, PER ENMT: Ears appear intact with no abnormalities noted Neck: No adenopathy, supple, trachea midline, no thyromegaly, no JVD Lungs/Resp: Normal effort, symmetric chest rise, no crepitus, minimal basilar rales left greater than right, no chest wall tenderness Heart/CV: Regular rhythm and normal rate, normal S1 and S2, no murmur Abdomen/GI: Soft, non-tender, non-distended, normal bowel sounds : Deferred Extremities/MSK: No clubbing or cyanosis. Trace edema. Normal tone. No deformities. Pulses: Pulses palpable and equal bilaterally Skin: No bleeding or bruising. . Heme/Lymph: No cervical or supraclavicular adenopathy. Neurologic: Psychiatric: Moves all extremities with no obvious focal motor deficit. Cranial nerves 2 - 12 grossly intact Oriented x 3, normal affect. The above findings are documentation my personal physical examination from today. Electronically signed by:Jhon Mujica MD 11/22/24 11:14 EDT Results Review: I reviewed the patient's new clinical results. Imaging: I reviewed the patient's new imaging including reviewing the images and radiologist's reports. Chest x-ray PA and lateral Study date: [...] changes with no acute radiographic chest abnormality. CT chest 03/12/2024 was reviewed. I reviewed both the images and the radiologist report. There are chronic changes of sarcoidosis with no acute abnormality. Radiologist impression follows: Impression: 1. No acute cardiopulmonary process. Stable scarring and calcified nodes. 2. Ancillary findings as described above EKG 05/03/2024: Low voltage. Normal sinus rhythm no definite ST or T wave changes. I reviewed most recent labs. PFTs: Spirometry was done on 08/09/2024. Please see scanned PFT report for complete details. FVC was 2.54 L or 81% predicted. FEV1 was 1.45 L or 59% predicted. FEV1 to FVC ratio of 57%. Maximal voluntary ventilation 45 L/min or 52% predicted. Interpretation: Moderate obstruction. Bronchodilator study not completed. Compared to prior study on 05/03/2024, FEV1 is decreased by 170 mL. Spirometry was done on 05/03/2024. Please see scanned PFT report for complete details. FVC was 2.85 Miladys 93% predicted. FEV1 was 1.62 L or 66% predicted. FEV1 to FVC ratio was 57%. Maximal voluntary ventilation was 42 L/min or 47% predicted. Interpretation: Moderate obstruction. Bronchodilator study not completed. Low maximal voluntary ventilation, which may be effort related. Compared to prior study on 12/22/2023, FEV1 is decreased by 20mL. Spirometry was done on 12/18/2023. Please see scanned PFT report for complete details. FVC was 2.98 L or 97% predicted. FEV1 was 1.64 L or 67% predicted. FEV1 to FVC ratio was 55%. Maximal voluntary ventilation was 53 L/min or 58% predicted. Interpretation: Moderate obstruction. No evidence to suggest restriction. Compared to prior study on 07/17/2023, FEV1 is decreased by 80 mL on current study. Spirometry was done on 07/17/2023. Please see scanned PFT report for complete details. FVC was 3.21 L or 104% predicted. FEV1 was 1.72 L or 70% predicted. FEV1 to FVC ratio 54%. Maximal voluntary ventilation 47 L/min or 52% predicted. Interpretation: Moderate obstruction without significant response to bronchodilator. Low maximal voluntary ventilation. Compared to prior study on 03/10/2023, FEV1 is increased by 50 mL on today's study. Spirometry was done on 03/10/2023. Please see scanned PFT report for complete details. FVC was 3.24L or 102% predicted. FEV1 was 1.67 L or 67% predicted. FEV1 to FVC ratio 52%. Maximal voluntary ventilation 51 L/min or 57% predicted. Interpretation: Moderate obstruction. Bronchodilator study not completed secondary to patient request. Low maximal voluntary ventilation. Compared to prior study on 08/21/2022, FEV1 is decreased by 90mL. Medication Review: No current facility-administered medications for this visit. Assessment & Plan Problems Addressed this Visit Multi-system (Lupus, Sarcoid...) Sarcoidosis Pulmonary and Pneumonias Multiple pulmonary nodules Tobacco History of tobacco use, presenting hazards to health - Primary Diagnoses Codes Comments History of tobacco use, presenting hazards to health - Primary ICD-10-CM: Z87.891 ICD-9-CM: V15.82 Multiple pulmonary nodules ICD-10-CM: R91.8 ICD-9-CM: 793.19 Sarcoidosis ICD-10-CM: D86.9 ICD-9-CM: 135 54 y.o. female diagnosed in October 2017 with sarcoidosis based on open lung biopsy. She tolerated prednisone but has had some weight gain. Her CT findings of diffuse nodular disease improved significantly after initiation of prednisone. Pulmonary function testing is improved on follow up today despite weaning prednisone. MRI of the brain done in January 2018 showed no concerning findings. The patient had a cardiac event monitor for 13+ days in September 2018 with predominantly sinus rhythm and essentially normal study. 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 She follows with ophthalmology for sarcoid eye exams and I reviewed a recent note from 09/09/2019. Patient completed a prolonged steroid taper in May 2019. She had a recurrence of pulmonary sarcoidosis in September 2019 manifested as dyspnea, elevated serum angiotensin-converting enzyme level, andnew perilymphatic nodular disease on CT scan of the chest. She was started back on 40 mg of prednisone and followed up with me. Discussed options with the patient. I started the patient on methotrexate as a steroid sparing agent in November 2019. I think she needs a steroid sparing agent given her failure to maintain initialremission and I think she is at high risk for osteoporosis with any more significant steroids. I discussed risks and benefits of methotrexate prior to initiating therapy. I advised her against alcohol use and she understands she should not drink alcohol. Patient tolerated methotrexate which was stopped in June 2023. Labs have been okay so far. CT scan/imaging improved. She had a recent possible infection with elevated white blood cell count (no source identified) andmethotrexate was held, and also had a recent compression fracture. Labs and PFTs appear stable. Patient was previously very interested in getting off of treatment for sarcoidosis. I ultimately discontinued her methotrexate and prednisone in June 2023. Unfortunately, patient developed increasedACE level which was persistent on labs. She currently has a cough, eye irritation, and rash on her leg, and had an episode of lightheadedness last night. I am going to get an EKG and pulmonary function testing but I think she likely has a flare of her sarcoidosis and needs to be placed back on maintenance methotrexate and a quick steroid taper (20 mg daily for 1 month followed by 10 mg daily for 1 month, followed by 5 mg daily). Patient is currently down to 5 mg prednisone a day. She had a recent episode of bronchitis and I repeated a chest x-ray today which shows no acute abnormality. I reviewed prior labs. I will obtain labs today. Refill albuterol. Continue prednisone, she has refills. Continue methotrexate, she has refills. Continue folic acid, she has refills. Continue Stiolto. Plan: - Continue methotrexate 10 mg once a week. -Resume folic acid 1 mg daily. -Check labs today and every 3 months at this point including CBC and CMP, ionized calcium, angiotensin-converting enzyme level -Continue Stiolto. -Spirometry today. Continue albuterol rescue inhaler as needed. -Resumed prednisone 20 mg daily May 2024 for a month followed by 10 mg daily for a month followed by 5 mg daily thereafter. Continue at 5 mg now. -Patient has gained some weight over the winter as she reports she has been eating more and not exercising as much, though has been off of steroids. -Yearly ophthalmology evaluation, her last appointment was in September 2023 with no evidence of ocular sarcoid. -We will plan for occasional reimaging based on symptoms/PFTs for sarcoidosis and continue screening CT scans given history of smoking. Patient has a 51-nggr-tmus history and quit smoking in 2016. Had a CT scan February 2024 so the next screening CT scan will be due in February 2025-Recommend yearly influenza vaccination. Prevnar given previously -Follow-up in 3 months. Labs today and at follow-up. - Prior bronchitis symptoms have resolved Immunization History Administered Date(s) Administered COVID-19 (MODERNA) 1st,2nd,3rd Dose Monovalent 09/01/2020, 09/29/2020 DTaP, Unspecified 1969, 1969, 1969, 12/20/1970, 09/24/1972, 07/12/1974, 10/13/1976 Flu Vaccine Quad PF >36MO 01/31/2017 Flu Vaccine Split Quad 01/15/2011 Fluzone (or Fluarix & Flulaval for VFC) >6mos 12/24/2018, 04/06/2020, 05/02/2022, 01/08/2023 Fluzone High-Dose 65+yrs 05/10/2021 Fluzone Quad >6mos (Multi-dose) 01/31/2017 Hepatitis A 04/03/2018 Influenza TIV (IM) 04/03/2018 Influenza, Unspecified 01/07/2017 Measles 10/05/1970, 10/31/1971 OPV 1969, 01/25/1970, 12/20/1970 OPV UF 1969, 01/25/1970, 12/20/1970 Pneumococcal Conjugate 20-Valent (PCV20) 05/02/2022, 08/21/2022 Pneumococcal Polysaccharide (PPSV23) 01/31/2017 Pneumococcal, Unspecified 01/07/2017 Shingrix 10/16/2023, 10/28/2024 Td (TDVAX) 06/15/1996 Td, Unspecified 08/08/1971, 07/25/1978, 01/16/1980 Tdap 01/25/2019 Social History Tobacco Use Smoking Status Former Current packs/day: 0.00 Average packs/day: 1.5 packs/day for 26.0 years (39.0 ttl pk-yrs) Types: Cigarettes Start date: 06/19/1990 Quit date: 06/19/2016 Years since quittin.4 Passive exposure: Past Smokeless Tobacco Never Nora Urbano reports that she quit smoking about 8 years ago. Her smoking use included cigarettes. She started smoking about 34 years ago. She has a 39 pack-year smoking history. She has been exposed to tobacco smoke. She has never used smokeless tobacco.. Advance Care Planning N/A MDM: Problem(s) Moderate due to: 2 or more stable chronic illnesses Data: Moderate due to: Review of prior external records from each unique source, Review or results of each unique test, and Ordering of each unique test Risk: High due to: drug(s) requiring intensive monitoring for toxicity (MTX) Moderate Electronically signed by: Jhon Mujica MD 11/22/24 11:14 EDT *. Please note that portions of this note were completed with a voice recognition program. Efforts were made to edit the dictations, but occasionally words are mistranscribed. documented in this encounter Plan of Treatment Upcoming Encounters Date Type Department Care Team (Late st Contact Info) Description 04/25/2025 9:00 AM EST Procedure visit [facility] PULMONARY & CRITICAL CARE MEDICINE [address] [place] [address] 04/25/2025 9:30 AM EST Office Visit [facility] PULMONARY & CRITICAL CARE MEDICINE [address] [place] [address] Jhon Mujica MD [address] [place] [address] 11/28/2025 1:30 PM EDT Office Visit [facility] CARDIOLOGY [address] [place] [address] You Aldridge III, MD [address] [place], [place] [id number] documented as of this encounter Procedures Procedure Name Priority Date/Time Associated Diagnosis Comments CBC WITH AUTO DIFFERENTIAL Routine 11/22/2024 11:32 AM EDT Sarcoidosis CBC AND DIFFERENTIAL Routine 11/22/2024 11:32 AM EDT Sarcoidosis ANGIOTENSIN CONVERTING ENZYME Routine 11/22/2024 11:24 AM EDT Sarcoidosis COMPREHENSIVE METABOLIC PANEL Routine 11/22/2024 11:24 AM EDT Sarcoidosis documented in this encounter Results * (ABNORMAL) CBC Auto Differential (11/22/2024 11:32 AM EDT) WBC 14.49(H) 3.40 - 10.80 10*3/mm3 11/22/2024 11:52 PM EDT [facility] RBC 4.39 3.77 - 5.28 10*6/mm3 11/22[facility]2024 [facility] Hemoglobin 13.8 12.0 - 15.9 g/dL 11/22/2024 11:52 PM [facility] Hematocrit 42.8 34.0 - 46.6 % 11/22/2024 11:52 PM [facility] MCV 97.5(H) 79.0 - 97.0 fL 11/22/2024 11:52 PM [facility] MCH 31.4 26.6 - 33.0 pg 11/22/2024 11:52 PM T [facility] MCHC 32.2 31.5 - 35.7 g/dL 11/22/2024 11:52 PM [facility] RDW 13.2 12.3 - 15.4 % 11/22/2024 11:52 PM [facility] RDW-SD 47.2 37.0 - 54.0 fl 11/22/2024 11:52 PM [facility] MPV 12.6(H) 6.0 - 12.0 fL 11/22/2024 11:52 PM [facility] Platelets 316 140 - 450 10*3/mm3 11/22/2024 11:52 PM [facility] Neutrophil % 71.8 42.7 - 76.0 % 11/22/2024 11:52 PM [facility] Lymphocyte % 19.3(L) 19.6 - 45.3 % 11/22/2024 11:52 PM [facility] Monocyte % 7.0 5.0 - 12.0 % 11/22/2024 11:52 PM T [facility] Eosinophil % 1.0 0.3 - 6.2 % 11/22/2024 11:52 PM T [facility] Basophil % 0.6 0.0 - 1.5 % 11/22/2024 11:52 [facility] Immature Grans % 0.3 0.0 - 0.5 % 11/22/2024 11:52 PM T [facility] Neutrophils, Absolute 10.40(H) 1.70 - 7.00 10*3/mm3 11/22/2024 11:52 PM EDT [facility] Lymphocytes, Absolute 2.80 0.70 - 3.10 10*3/mm3 11/22/2024 11:52 PM EDT [facility] Monocytes, Absolute 1.01(H) 0.10 - 0.90 10*3/mm3 11/22/2024 11:52 PM EDT [facility] Eosinophils, Absolute 0.15 0.00 - 0.40 10*3/mm3 11/22/2024 11:52 PM EDT [facility] Basophils, Absolute 0.08 0.00 - 0.20 10*3/mm3 11/22/2024 11:52 PM EDT [facility] Immature Grans, Absolute 0.05 0.00 - 0.05 10*3/mm3 11/22/2024 11:52 PM EDT [facility] nRBC 0.0 0.0 - 0.2 /100 WBC 11/22/2024 11:52 PM EDT [facility] Blood Structure of left upper limb / Unknown Venipuncture / Unknown 11/22/2024 11:32 AM EDT 11/22/2024 11:32 AM EDT us Jhon Mujica MD LAB BLOOD ORDERABLES Final R esult [facility]
[address] [place] [address], * Angiotensin Converting Enzyme (11/22/2024 11:24 AM EDT) Angiotensin Converting Enzyme 61 14 - 82 U/L 11/24/2024 12:10 PM EDT [facility] Blood Structure of left upper limb / Unknown Venipuncture / Unknown 11/22/2024 11:24 AM EDT 11/22/2024 11:24 AM EDT Narrative [facility] - 11/24/2024 12:10 PM EDT Performed at: 01 - [facility] [address] [facility], [place], [place] [id number] Fresh Meat Grader: Chema Grimaldo PhD, Phone: [phone] us Jhon Mujica MD LAB BLOOD ORDERABLES Final R esult [facility] [address] [place] [address], * (ABNORMAL) Comprehensive Metabolic Panel (11/22/2024 11:24 AM EDT) Pathologist [facility] Glucose 105(H) 65 - 99 mg/dL 11/22/2024 11:59 PM EDT [facility] BUN 7.0 6.0 - 20.0 mg/dL 11/22/2024 11:59 PM EDT [facility] Creatinine 0.96 0.57 - 1.00 mg/dL 11/22/2024 11:59 PM EDT [facility] Sodium 144 136 - 145 mmol/L 11/22/2024 11:59 PM EDT [facility] Potassium 4.6 3.5 - 5.2 mmol/L 11/22/2024 11:59 PM EDT [facility] Chloride 107 98 - 107 mmol/L 11/22/2024 11:59 PM EDT [facility] CO2 22.9 22.0 - 29.0 mmol/L 11/22/2024 11:59 PM EDT [facility] Calcium 9.5 8.6 - 10.5 mg/dL 11/22/2024 11:59 PM EDT [facility] Total Protein 6.5 6.0 - 8.5 g/dL 11/22/2024 11:59 PM EDT [facility] Albumin 3.6 3.5 - 5.2 g/dL 11/22/2024 11:59 PM EDT [facility] ALT (SGPT) 24 1 - 33 U/L 11/22/2024 11:59 PM EDT [facility] AST (SGOT) 30 1 - 32 U/L 11/22/2024 11:59 PM EDT [facility] Alkaline Phosphatase 121(H) 39 - 117 U/L 11/22/2024 11:59 PM EDT [facility] Total Bilirubin 0.2 0.0 - 1.2 mg/dL 11/22/2024 11:59 PM EDT [facility] Globulin 2.9 gm/dL 11/22/2024 11:59 PM EDT [facility] A/G Ratio 1.2 g/dL 11/22/2024 11:59 PM EDT [facility] BUN/Creatinine Ratio 7.3 7.0 - 25.0 11/22/2024 11:59 PM EDT [facility] Anion Gap 14.1 5.0 - 15.0 mmol/L 11/22/2024 11:59 PM EDT [facility] eGFR 70.0 >60.0 mL/min/1.7 3 11/22/2024 11:59 PM EDT [facility] Blood Structure of left upper limb / Unknown Venipuncture / Unknown 11/22/2024 11:24 AM EDT 11/22/2024 11:24 AM EDT [facility] - 11/22/2024 11:59 PM EDT GFR Categories in Chronic Kidney Disease (CKD) GFR Category GFR (mL/min/1.73) Interpretation G1 90 or greater Normal or high (1) G2 60-89 Mild decrease (1) G3a 45-59 Mild to moderate decrease G3b 30-44 Moderate to severe decrease G4 15-29 Severe decrease G5 14 or less Kidney failure (1)In the absence of evidence of kidney disease, neither GFR category G1 or G2 fulfill the criteria for CKD. eGFR calculation 2020 CKD-EPI creatinine equation, which does not include race as a factor us Jhon Mujica MD LAB BLOOD ORDERABLES Final R esult [facility]
[address] [place] [address], documented in this encounter Visit Diagnoses Diagnosis History of tobacco use, presenting hazards to health- Primary Personal history of tobacco use, presenting hazards to health Multiple pulmonary nodules Other diseases of lung, not elsewhere classified Sarcoidosis documented in this encounter Care Teams Instrumentation Manager Relationship Specialty Start Date End Date Sonia Jerez APRN [address] [place] [facility] [address] [place] [id number] PCP - General Family Medicine 01/03/20 documented as of this encounter
--- OUTSIDE RECORDS SUMMARY | 2024-11-24 15:00 | XMS_ITS | Encounter Summary ---
Author Organization [facility] ystem Address [address] [place] [address] Care Team Providers Care Bank Consultant Name Role Phone Sonia Jerez KIRILL Primary Care Provid er Reason for Visit * Reason Comments Palpitations 3 month follow up Encounter Details Date Type Department Care Team (Late st Contact Info) Description 11/24/2024 3:00 PM EDT Office Visit [facility] [address] [facility] [address] [place] [address] You Aldridge III, MD [address] [facility] [address] [place] [id number] Palpitations (Primary Dx); Orthostatic hypotension Social History Tobacco Use Types Packs/Day Years [...] 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 Not on file Not on file Not on file documented as of this encounter Last Filed Vital Signs Vital Sign Reading Time Taken Comments Blood Pressure 118/68 11/24/2024 2:37 PM EDT Pulse 63 11/24/2024 2:37 PM EDT Temperature - - Respiratory Rate - - Oxygen Saturation 100% 11/24/2024 2:37 PM EDT Inhaled Oxygen Concentration - - Weight - - Height 162.6 cm (5' 4.02 ) 11/24/2024 2:37 PM ED T Body Mass Index - - documented in this encounter Progress Notes * You Aldridge III, MD - 11/24/2024 3:00 PM EDT [facility] Office visit Nora Thompson Sundeep 1970 There is no work phone number on file. VISIT DATE: 11/24/2024 PCP: Sonia Jerez, KIRILL [address] [place] [phone] CC: Chief Complaint Patient presents with Palpitations 3 month follow up Previous cardiac studies and procedures: October 2017 echo Left ventricular systolic function is normal. Estimated EF = 60%. Trace mitral regurgitation, trace tricuspid regurgitation. 2018 Transthoracic echocardiogram Left ventricular systolic function is normal. Estimated EF = 60%. Trace mitral regurgitation, trace tricuspid regurgitation. Holter A normal monitor study. Symptoms of palpitations correlated with sinus rhythm. Exercise treadmill test Pt. c/o mild chest tightness with exercise Expected exercise duration = 8:10 Actual = 7:00 No ECG evidence of myocardial ischemia.Indeterminate clinical evidence of myocardial ischemia. Findings consistent with a normal ECG stress test. September 2018 2-week ambulatory ECG monitor: Normal October 2019 30-day ambulatory ECG monitor: A relatively benign monitor study. Occasional PACs (2%) 8 patient triggered episodes all correlate with sinus rhythm. August 2024 TTE: Left ventricular systolic function is normal. Left ventricular ejection fraction appears to be 66 -70%. Left ventricular diastolic function was normal. The right ventricular cavity is borderline dilated. Estimated right ventricular systolic pressure from tricuspid regurgitation is normal (<35 mmHg). Holter, 2-week: Normal, symptoms correlate with sinus rhythm. ASSESSMENT: Diagnosis Plan 1. Palpitations 2. Orthostatic hypotension PLAN: Palpitations: Low risk cardiac evaluation. Symptoms currently well-controlled. Continue low-dose bisoprolol. Precordial pain: No significant clinical suspicion for underlying symptomatic obstructive CAD. Subjective Initial evaluation 47-year-old prior smoker who is recently diagnosed with pulmonary sarcoid after surgical biopsy. hx of left video-assisted thoracotomy with left lower lobe and lingular wedge biopsy, mediastinal lymph node dissection, and mechanical pleurodesis . Previous [id number] history of s moking, quit 2 years ago. Has had some left-sided chest pain which is mainly brought on by coughing, no significant exertional component. She has had recurrent episodes of palpitations which she describes as a sudden onset of a racing heartbeat with associated shortness of breath and lightheadedness and some visual changes. These can occur at rest or with exertion, last up to 2 minutes. No obvious triggers. No alleviating or exacerbating factors. Intermittently occurs with exertion. Normal transthoracic echocardiogram, unremarkable baseline 12-lead EKG. Currently occurring 2-3 times per day. Interval assessment: Stable dyspnea exertion, class II pattern. No PND orthopnea. No lower extremity edema. Blood pressures running less than 130/80 mmHg. Palpitations are reasonably well-controlled on bisoprolol. PHYSICAL EXAMINATION: Vitals: 11/24/24 1437 BP: 118/68 BP Location: Right arm Patient Position: Sitting Cuff Size: Adult Pulse: 63 SpO2: 100% Height: 162.6 cm (64.02 ) General Appearance: Alert, cooperative, no distress, appears stated age Lungs: Clear to auscultation bilaterally, respirations unlabored Chest Wall: No tenderness or deformity Heart: Regular rate and rhythm, S1 and S2 normal, no murmur, rub or gallop, normal carotid impulse bilaterally without bruit. Extremities: Extremities normal, atraumatic, no cyanosis or edema Pulses: 2+ and symmetric all extremities Skin: Skin color, texture, turgor normal, no rashes or lesions Diagnostic Data: Procedures No results found for: CHLPL , TRIG , HDL , LDLDIRECT Lab Results Component Value Date GLUCOSE 105 (H) 11/22/2024 BUN 7.0 11/22/2024 CREATININE 0.96 11/22/2024 NA 144 11/22/2024 K 4.6 11/22/2024 CL 107 11/22/2024 CO2 22.9 11/22/2024 Lab Results Component Value Date HGBA1C 5.30 11/18/2017 Lab Results Component Value Date WBC 14.49 (H) 11/22/2024 HGB 13.8 11/22/2024 HCT 42.8 11/22/2024 PLT 316 11/22/2024 Allergies Allergies Allergen Reactions Adhesive Tape Hives Nickel Rash Current Medications Current Outpatient Medications: albuterol sulfate HFA 108 (90 Base) MCG/ACT inhaler, Inhale 2 puffs Every 4 (Four) Hours As Needed for Wheezing., Disp: 54 g, Rfl: 3 busPIRone (BUSPAR) 10 MG tablet, Take 1 tablet by mouth 2 (Two) Times a Day., Disp: , Rfl: cyclobenzaprine (FLEXERIL) 5 MG tablet, Take 1 tablet by mouth Daily., Disp: , Rfl: folic acid (FOLVITE) 1 MG tablet, Take 1 tablet by mouth Daily., Disp: 90 tablet, Rfl: 3 gabapentin (NEURONTIN) 300 MG capsule, Take 1 capsule by mouth every night at bedtime., Disp: , Rfl: Gemtesa 75 MG tablet, Take 1 tablet by mouth Daily., Disp: , Rfl: loperamide (IMODIUM) 2 MG capsule, Take 1 capsule by mouth 4 (Four) Times a Day As Needed for Diarrhea., Disp: , Rfl: methotrexate 2.5 MG tablet, Take 4 tablets by mouth 1 (One) Time Per Week., Disp: 48 tablet, Rfl: 3 metoclopramide (REGLAN) 5 MG tablet, Take 1 tablet by mouth 2 (Two) Times a Day With Meals., Disp: , Rfl: multivitamin with minerals tablet tablet, Take 1 tablet by mouth Daily., Disp: , Rfl: Polyethylene Glycol 3350 (MIRALAX PO), Take 17 g by mouth Daily., Disp: , Rfl: predniSONE (DELTASONE) 10 MG tablet, Take 0.5 tablets by mouth Daily., Disp: 45 tablet, Rfl: 3 psyllium (METAMUCIL) 58.6 % packet, Take 1 packet by mouth Daily., Disp: , Rfl: simethicone (MYLICON,GAS-X) 125 MG capsule capsule, 1 cap(s) orally 4 times a day (after meals and at bedtime); Duration: 5 day(s), Disp: , Rfl: Stiolto Respimat 2.5-2.5 MCG/ACT aerosol solution inhaler, Inhale 2 puffs Daily., Disp: 12 g, Rfl: 3 tiZANidine (ZANAFLEX) 4 MG tablet, TAKE 1 TO 2 TABLET(S) BY MOUTH EVERY DAY AT BEDTIME NEEDED FOR BACK SPASMS MAY CAUSE DROWSINESS, Disp: , Rfl: Ubrelvy 100 MG tablet, Daily., Disp: , Rfl: venlafaxine XR (EFFEXOR-XR) 75 MG 24 hr capsule, , Disp: , Rfl: bisoprolol (ZEBeta) 5 MG tablet, TAKE 1/2 TABLET BY MOUTH EVERY DAY (Patient not taking: Reported on 11/24/2024), Disp: 45 tablet, Rfl: 3 omeprazole (priLOSEC) 20 MG capsule, Take 1 capsule by mouth Daily. (Patient not taking: Reported on 11/24/2024), Disp: , Rfl: Veozah 45 MG tablet, Take 1 tablet by mouth Daily. (Patient not taking: Reported on 11/24/2024), Disp: , Rfl: ROS ROS SOCIAL HX Social History Socioeconomic History Marital status: Number of children: 2 Tobacco Use Smoking status: Former Current packs/day: 0.00 Average packs/day: 1.5 packs/day for 26.0 years (39.0 ttl pk-yrs) Types: Cigarettes Start date: 06/19/1990 Quit date: 06/19/2016 Years since quittin.4 Passive exposure: Past Smokeless tobacco: Never Vaping Use Vaping status: Never Used Substance and Sexual Activity Alcohol use: No Drug use: No Sexual activity: Not Currently control/protection: Abstinence FAMILY HX Family History Problem Relation Age of Onset Stroke Mother Cancer Mother Diabetes Mother Cancer Father Emphysema Father I confirm that all copied/forwarded documentation in this record has been carefully reviewed, updated as necessary, and accurately reflects the patient's current status and plan of care. You Aldridge III, MD, [facility] documented in this encounter Plan of Treatment Upcoming Encounters Date Type Department Care Team (Late st Contact Info) Description 04/25/2025 9:00 AM EST Procedure visit [facility] MEDICINE [address] [place] [address] 04/25/2025 9:30 AM EST Office Visit [facility] [address] [place] [address] Jhon Mujica MD [address] [place] [address] 11/28/2025 1:30 PM EDT Office Visit [facility] [address] [place] [address] You Aldridge III, MD [address] [place] [address] documented as of this encounter Visit Diagnoses Diagnosis Palpitations- Primary Orthostatic hypotension documented in this encounter Care Teams Bank Consultant Relationship Specialty Start Date End Date Sonia Jerez APRN [address] [facility] [address] [place] [address] PCP - General Family Medicine 01/03/20 documented as of this encounter
--- OUTSIDE RECORDS SUMMARY | 2024-12-02 10:00 | XMS_ITS ---
Author Organization [facility] Address [address] [place] [address] Care Team Providers Care Night Filler Name Role Phone Jean Carlos Adams Primary Care Provider Sonia Jerez [phone] Allergies Allergen (clinical drug ingredient) Drug/Non Drug Allergy documented on EMR Reaction Allergy Type Onset Date Status nickel Nickel rash Allergy Active REASON FOR VISIT 5 Week Follow up, Feels like something is crawling in right ear Medications Medication SIG (Take, Route, Frequency, Duration) Notes Start Date End Date Status busPIRone HCl 10 mg TAKE ONE TABLET BY MOUTH TWICE DAILY; Duration: 15 Active Bisoprolol Fumarate 5 MG 1/2 tablet orally once a day; Duration: 90 days Active Pravastatin Sodium 20 MG 1 tab(s) orally once a day; Duration: 90 days 06/21/2024 Active Ubrelvy 100 MG 1 tablet as needed, may take second dose at least 2 hours after first dose up to 2 tablets per day as needed Orally Once a day; Duration: 30 days 07/07/2024 Active Loperamide HCl 2 mg TAKE ONE CAPSULE BY MOUTH TWICE DAILY MAY CAUSE DROWSINESS; Duration: 30 Active Folic Acid 1 MG 1 tab(s) orally once a day; Duration: 90 days Active Cyclobenzaprine HCl 5 MG 1 tab(s) orally once a day; Duration: 30 days Active Diclofenac Sodium 1 % 2 gram applied topically 4 times a day; Duration: 14 days 10/17/2023 Active Stiolto Respimat 2.5 MCG-2.5 MCG/INH INHALE 2 PUFFS BY MOUTH EVERY DAY; Duration: 30 *Please review and pick correct strength-formulati on from YR.MRKT options. If intended option is not shown, discontinue and re-order from Quick Search* Active NURTEC ODT 75 MG TAKE ONE TABLET BY MOUTH EVERY DAY NEEDED FOR MIGRAINE; Duration: 30 *Please review for potential replacement for e-prescription and drug interaction check* Active Kaopectate 262 MG/15ML 30 mL orally 4 times a day prn Active Gas Relief Extra Strength 125 MG 1 cap(s) orally 4 times a day (after meals and at bedtime); Duration: 5 day(s) prn Active Albuterol Sulfate HFA 108 (90 Base) MCG/ACT 2 puff(s) inhaled 4 times a day prn Active ONE-A-DAY WOMEN 50 PLUS MULTIPLE VITAMINS WITH MINERALS 1 TAB(S) ORALLY ONCE A DAY; Duration: 30 DAY(S) *Please review for potential replacement for e-prescription and drug interaction check* Active MiraLax - DIRECTED ORALLY ONCE A DAY *Please review and pick correct strength-formulati on from YR.MRKT options. If intended option is not shown, discontinue and re-order from [employer] Search* Active Methotrexate Sodium 7.5 MG 4 tabs orally once a week Active predniSONE 2.5 MG 1 tab(s) orally once a day Active Veozah 45 MG 1 tab(s) orally once a day Active Gabapentin 300 MG 1 capsule Orally Once a day Active Social History Tobacco Use: Social History Observation Description Date Details (start date - stop date) Former Smoker NA - NA Smoking: Question Answer Notes Are you a: former smoker How long has it been since you last smoked? 1-5 years Vital Signs Temperature 97.5 degrees Fahrenheit 12/03/19 25 Heart Rate 84 /min 12/02/2024 Blood pressure systolic 108 mm Hg 12/03/19 25 Blood pressure diastolic 74 mm Hg 025 Height 5 ft 3 in in 12/02/2024 Weight 218.4 lbs 12/02/2024 BMI 38.68 kg/m2 12/02/2024 Encounters Encounter Location Date Provider Diagnosis [facility] [address] [place] [address] 12/02/2024 Sonia Jerez OAB (overactive bladder) N32.81 ; Depression with anxiety F41.8 and Diaphoresis R61 Assessments Encounter Date Diagnosis (ICD Code) Assessment Notes Treatment Notes Treatment Clinical Notes Section Notes 12/02/2024 OAB (overactive bladder) (ICD-10 - N32.81) She denies any current symptoms of overactive bladder and would really like to minimize her daily medications, discontinue Gemtesa 12/02/2024 Depression with anxiety (ICD-10 - F41.8) Recommend decrease venlafaxine to every other day for a month and then discontinue completely. Strict return precautions reviewed. Will plan to follow-up in 2 months to see how she is doing without this both mentally and physically. Still hopeful this might help her diaphoresis a bit 12/02/2024 Diaphoresis (ICD-10 - R61) Plan Of Treatment Medication Medication Name Sig Start Date Stop Date Notes Venlafaxine HCl ER 37.5 MG 1 capsule wit h food Orally Once a day Gemtesa 75 mg TAKE ONE TABLET BY M OUTH EVERY DAY Next Appt Details Follow Up: 2 Months, Reason: Provider Name:Sonia Talamantes ce, 02/03/2025 02:00:00 PM, [address] [facility], [address], [place], [address], Progress Notes * Poly URBANOOB:1970 (54 yo F)Acc No.[id number]:12/02/2024 Progress Notes Patient: Nora ODELL Provider: RYAN Rodriguez :1970 A ge:54 Y S ex:Female Date:12/02/2024 Address:[address] [place] [address] [place], [id number] Pcp:Jean Carlos Adams Subjective: * Chief Complaints: * 1 . 5 Week Follow up. 2. Feels like something is crawling in right ear. * HPI: g en: 54-year-old female presents today to follow-up since weaning her venlafaxine from 75 mg to 37.5 mg once a day. She has not noticed any ill effects of this. Unfortunately her diaphoresis is unchanged. She has no new concerns aside from sensation that something is in her right ear. has done well weaning off of omeprazole. * ROS: C ONSTITUTIONAL: no L oss of appetite. n o F ever. n o W eakness. D ERMATOLOGY: no R linda. G ASTROENTEROLOGY: Reviewed, No Symptoms Reported: Y es. U ROLOGY: Reviewed, No Symptoms Reported: Y es. * Medical History: D egenerative joint disease, Hypertension, Tobacco use, stopped in 2017, Hearing aids, Migraine headache, Arthritis, Herniated disc, IBS, Esophageal spasms, COPD, Hiatal hernia s/p surgical repair 2017, Pulmonary sarcoidosis, dx via VATS procedure 2017. Dr Rowland and Dr Mujica at [facility] , Emphysema, Covid , EGD/Colonoscopy May [address] Salter. SHERRILL. * Surgical History: c arpal tunnel , cholecystectomy , tonsillectomy , umbilical hernia repair , Esophageal dilation 2009, colonoscopy 2009, knee surgery 2015, , Dr Baeza, diaphragmatic hernia repair 2017, tried to have biopsy of lung 07/2017, biopsy of lymph node in lung-throacentesis of lung 10/2017, Bladder tuck 10/2018, colonoscopy/EGD 05/2020, rt rotator cuff surgery 2020, EGD/Colonoscopy 09/2023. * Hospitalization/Major Diagno stic Procedure: s antonio , biopsy of lung 10/2017. * Family History: F ather: , cancer. M other: alive, cancer. P aternal Grand Father: , lung cancer. P aternal Grand Mother: alive, breast cancer. M aternal Grand Father: , prostate cancer. M aternal Grand Mother: , colorectal cancer. S iblings: alive. C giovannien: alive. 1 brother(s) , 1 sister(s) - healthy. 2 son(s) - healthy. . * Social History: S moking A re you a: f ormer smoker, H ow long has it been since you last smoked??1-5 years. R ecreational drug use: no. Exercise: no. Home smoke detector use: yes. Caffeine: yes, frequency:coffee daily and tea occasionally. Living Will: No. Alcohol: no. Sexually active: no. Travel outside [place]: no. Occupation: unemployed. * Medications: T aking Gabapentin 300 MG Capsule 1 capsule Orally Once a day , Taking Methotrexate Sodium 7.5 MG Tablet 4 tabs orally once a week , Taking predniSONE 2.5 MG Tablet 1 tab(s) orally once a day , Taking Veozah 45 MG Tablet 1 tab(s) orally once a day , Taking MiraLax - POWDER FOR RECONSTITUTION DIRECTED ORALLY ONCE A DAY , Notes to Pharmacist: *Please review and pick correct strength-formulation from YR.MRKT options. If intended option is not shown, [...] topically 4 times a day , Taking Stiolto Respimat 2.5 MCG-2.5 MCG/INH AEROSOL INHALE 2 PUFFS BY MOUTH EVERY DAY , Notes to Pharmacist: *Please review and pick correct strength- formulation from YR.MRKT options. If intended option is not shown, discontinue and re-order from Quick Search*, Taking Folic Acid 1 MG Tablet 1 tab(s) orally once a day , Taking Cyclobenzaprine HCl 5 MG Tablet 1 tab(s) orally once a day , Taking Pravastatin Sodium 20 MG Tablet 1 tab(s) orally once a day , Taking Ubrelvy 100 MG Tablet 1 tablet as needed, may take second dose at least 2 hours after first dose up to 2 tablets per day as needed Orally Once a day , Taking busPIRone HCl 10 mg Tablet TAKE ONE TABLET BY MOUTH TWICE DAILY , Taking Gemtesa 75 mg Tablet TAKE ONE TABLET BY MOUTH EVERY DAY , Taking Venlafaxine HCl ER 37.5 MG Capsule Extended Release 24 Hour 1 capsule with food Orally Once a day , Taking Bisoprolol Fumarate 5 MG Tablet 1/2 tablet orally once a day , Taking Loperamide HCl 2 mg Capsule TAKE ONE CAPSULE BY MOUTH TWICE DAILY MAY CAUSE DROWSINESS , Medication List reviewed and reconciled with the patient * Allergies: N ickel: rash. Objective: * Vitals: N urse: KJ, Pain: 6, Temp: 97.5, RR: 18, HR: 84, BP: 108/74, Ht: 5 ft 3 in, Wt: 218.4, BMI:38.68. * Examination: P sychology: General Appearance: N AD, pleasant. Grooming : a dequate. Eye contact : n ormal. Mood : p leasant. Heart: R egular Rate and Rhythm, no murmur, rubs or gallops. Lungs: L CTAB, No wheezes, crackles or rhonchi, Good air movement,. e ar exam is normal. Assessment: * Assessment: 1. D epression with anxiety - F41.8 (Primary) 2 . O AB (overactive bladder) - N32.81 3 . D iaphoresis - R61 Plan: * Treatment: 2. O AB (overactive bladder) Stop Gemtesa Tablet, 75 mg, TAKE ONE TABLET BY MOUTH EVERY DAY. Clinical Notes: She denies any current symptoms of overactive bladder and would really like to minimize her daily medications, discontinue Gemtesa * Follow Up: 2 Months * * Sign off status: Completed true * Provider: RYAN Rodriguez Date: 0 12/02/2024 Generated for Simon rodriguez/Jarvis/Romelia on: 1 02:23 PM EDT History and Physical Notes * Examination Category Sub-Category Detail Notes Category Not es Psychology Heart: Regular Rate and Rhythm, no murmur, rubs or gallops ear exam is normal Lungs: LCTAB, No wheezes, c rackles or rhonchi, Good air movement, General Appearance: NAD, pleasant Grooming : adequate Eye contact : normal Mood : pleasant
--- OUTSIDE RECORDS SUMMARY | 2025-01-04 14:22 | XMS_ITS | Clinical Summary ---
Author Organization [facility] Address [address] [place] [address] Care Team Providers Care Airline Captain Name Role Phone Jean Carlos Adams MD Primary Care Provider Immunizations Immunization Administration Dates Next Due Influenza, Unspecified 01/07/2017 Pneumococcal, Unspecified 01/07/2017 Family History Medical History Relation Name Comments Prostate cancer Father Lung cancer Mother Relation Name Status Comments Father Mother Social History Tobacco Use Types Packs/Day Years Used Date Smoking Tobacco: Former Alcohol Use Standard Drinks/Week Comments No 0 (1 standard drink = 0.6 oz pur e alcohol) Comments Unknown Sex and Gender Information Value Date Recorded Sex Assigned at Not on file Legal Sex Female 7:40 PM EDT Gender Identity Not on file Sexual Orientation Not on file Last Filed Vital Signs Vital Sign Reading Time Taken Comments Blood Pressure 90/62 11/10/2017 7:36 AM EDT Pulse 57 11/10/2017 7:36 AM EDT Temperature 36.5 C (97.7 F) 11/10/2017 7:36 AM EDT Respiratory Rate 16 11/10/2017 7:36 AM EDT Oxygen Saturation - - Inhaled Oxygen Concentration - - Weight 65.6 kg (144 lb 10 oz) 11/10/2017 7:36 AM EDT Height 157.5 cm (5' 2 ) 11/10/2017 7:36 AM EDT Body Mass Index 26.45 11/10/2017 7:36 AM EDT Plan of Treatment Not on file Care Teams Airline Captain Relationship Specialty Start Date End Date Jean Carlos Adams MD [address] [place] [address] PCP - General 08/11/20
--- OUTSIDE RECORDS SUMMARY | 2025-01-04 14:22 | XMS_ITS | Encounter Summary ---
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 Not on file Not on file documented as of this encounter Plan of Treatment Upcoming Encounters Date Type Department Care Team (Late st Contact Info) Description 04/25/2025 9:00 AM EST Procedure visit [facility] PULMON[facility] & CRITICAL CARE MEDICINE [address] [place] [phone] 04/25/2025 9:30 AM EST Office Visit [facility] PULMON[facility] & CRITICAL CARE MEDICINE [address] [place] [address] Jhon Mujica MD [address] [place] [address] 11/28/2025 1:30 PM EDT Office Visit [facility] CARDIOLOGY [address] [place] [id number] You Aldridge III, MD [address] [place] [address] documented as of this encounter Visit Diagnoses Not on filedocumented in this encounter Care Teams Charge Histotechnologist Relationship Specialty Start Date End Date Sonia Jerez APRN [address] [facility] [address] [place] [address] PCP - General Family Medicine 01/03/20 documented as of this encounter
--- OUTSIDE RECORDS SUMMARY | 2025-01-04 14:22 | XMS_ITS | Encounter Summary ---
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 Not on file Not on file documented as of this encounter Plan of Treatment Upcoming Encounters Date Type Department Care Team (Late st Contact Info) Description 04/25/2025 9:00 AM EST Procedure visit [facility] PULMONARY & CRITICAL CARE MEDICINE [address] [place] [phone] 04/25/2025 9:30 AM EST Office Visit [facility] PULMONARY & CRITICAL CARE MEDICINE [address] [place] [address] Jhon Mujica MD [address] [place] [address] 11/28/2025 1:30 PM EDT Office Visit [facility] CARDIOLOGY [address] [place] [phone] You Aldridge III, MD [address] [place] [address] documented as of this encounter Visit Diagnoses Not on filedocumented in this encounter Care Teams Racing Manager Relationship Specialty Start Date End Date Sonia Jerez APRN [address] [facility] [address] [place] [address] PCP - General Family Medicine 01/03/20 documented as of this encounter
--- OUTSIDE RECORDS SUMMARY | 2025-01-04 14:22 | XMS_ITS | Encounter Summary ---
Author Organization [facility] ystem Address [address] [place] [address] Care Team Providers Care National Stormwater Leader Name Role Phone Sonia Jerez KIRILL Primary Care Provid er Encounter Details Date Type Department Care Team (Late st Contact Info) Description 08/09/2024 Results Follow-Up [facility] PULMONARY & CRITICAL CARE MEDICINE [address] [place] [address] Jhon Mujica MD [address] [place] [address] Social History Tobacco Use Types Packs/Day Years Used Date Smoking Tobacco: Former Cigarettes 1.5 26 0 06/19/1990 - 06/19/2016 Passive Smoke Exposure: Never Smokeless Tobacco: Never Alcohol Use Standard Drinks/Week Comments No 0 (1 standard drink = 0.6 oz pur e alcohol) Comments No Sex and Gender Information Value Date Recorded Sex Assigned at Female 08/24/2024 12:08 AM EDT Legal Sex Female 10:38 AM EDT Gender Identity Not on file Sexual Orientation Straight 08/24/2024 12 :08 AM EDT 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[employer] Not on file Not on file Not on file documented as of this encounter Plan of Treatment Upcoming Encounters Date Type Department Care Team (Late st Contact Info) Description 04/25/2025 9:00 AM EST Procedure visit [facility] PULMONARY & CRITICAL CARE MEDICINE [address] [place] [address] 04/25/2025 9:30 AM EST Office Visit [facility] PULMONARY & CRITICAL CARE MEDICINE [address] [place] [address] Jhon Mujica MD [address] [place] [address] 11/28/2025 1:30 PM EDT Office Visit [facility] CARDIOLOGY [address] [place] [phone] You Aldridge III, MD [address] [place] [address] documented as of this encounter Visit Diagnoses Not on filedocumented in this encounter Care Teams National Stormwater Leader Relationship Specialty Start Date End Date Sonia Jerez APRN [address] [facility] [address] [place] [address] PCP - General Family Medicine 01/03/20 documented as of this encounter
--- OUTSIDE RECORDS SUMMARY | 2025-01-04 14:22 | XMS_ITS | Clinical Summary ---
Author Organization [facility] Address [address] [place] [address] Care Team Providers Care Truer Pinion And Wheel Name Role Phone Sonia Jerez APRN Primary Care Provid er Allergies Active Allergy Reactions Criticality Noted Date Comments Adhesive Tape Hives Low 03/17/2019 Nickel Rash Low 10/19/2019 Medications omeprazole (priLOSEC) 20 MG capsule Take 1 capsule by mouth Daily. Active multivitamin with minerals tablet tablet Take 1 tablet by mouth Daily. Active busPIRone (BUSPAR) 10 MG tablet Take 1 tablet by mouth 2 (Two) Times a Day. 1 Active psyllium (METAMUCIL) 58.6 % packet Take 1 packet by mouth Daily. Active Polyethylene Glycol 3350 (MIRALAX PO) Take 17 g by mouth Daily. Active tiZANidine (ZANAFLEX) 4 MG tablet TAKE 1 TO 2 TABLET(S) BY MOUTH EVERY DAY AT BEDTIME NEEDED FOR BACK SPASMS MAY CAUSE DROWSINESS 2 Active cyclobenzaprine (FLEXERIL) 5 MG tablet Take 1 tablet by mouth Daily. 2 Active Gemtesa 75 MG tablet Take 1 tablet by mouth Daily. 2 Active Veozah 45 MG tablet Take 1 tablet by mouth Daily. 3 Active bisoprolol (ZEBeta) 5 MG tablet TAKE 1/2 TABLET BY MOUTH EVERY DAY 45 tablet 3 4 Active Additional Information Patient not taking.Reported on 11/24/2024 loperamide (IMODIUM) 2 MG capsule Take 1 capsule by mouth 4 (Four) Times a Day As Needed for Diarrhea. 4 Active metoclopramide (REGLAN) 5 MG tablet Take 1 tablet by mouth 2 (Two) Times a Day With Meals. 4 Active venlafaxine XR (EFFEXOR-XR) 75 MG 24 hr capsule 5 Active Ubrelvy 100 MG tablet Daily. 5 Active albuterol sulfate HFA 108 (90 Base) MCG/ACT inhaler Inhale 2 puffs Every 4 (Four) Hours As Needed for Wheezing. 54 g 3 5 Active Stiolto Respimat 2.5-2.5 MCG/ACT aerosol solution inhalerIndicati ons:Centrilobul ar emphysema Inhale 2 puffs Daily. 12 g 3 5 Active methotrexate 2.5 MG tabletIndicatio ns:Sarcoidosis Take 4 tablets by mouth 1 (One) Time Per Week. 48 tablet 3 5 Active folic acid (FOLVITE) 1 MG tabletIndicatio ns:Pulmonary sarcoidosis,Juan coidosis Take 1 tablet by mouth Daily. 90 tablet 3 5 Active predniSONE (DELTASONE) 10 MG tabletIndicatio ns:Sarcoidosis Take 0.5 tablets by mouth Daily. 45 tablet 3 5 Active gabapentin (NEURONTIN) 300 MG capsule Take 1 capsule by mouth every night at bedtime. 5 Active simethicone (MYLICON,GAS-X) 125 MG capsule capsule 1 cap(s) orally 4 times a day (after meals and at bedtime); Duration: 5 day(s) Active Active Problems Problem Noted Date Diagnosed Date Abnormal echocardiogram 08/25/2024 Subacute cough 05/03/2024 History of tobacco use, presenting hazards to he alth 05/02/2022 Other fatigue 12/02/2019 Hearing problem of both ears 04/15/2018 Palpitations 01/26/2018 Subcutaneous nodules - dista l left leg, anteriorly, rule out sarcoidosis. 12/25/2017 Overview (12/25/2017): - distal left leg, anteriorly, rule out sarcoidosis. Orthostatic hypotension 11/23/2017 Sarcoidosis 11/22/2017 S/P left video-assisted thor acotomy with left lower lobe and lingular wedge biopsy, mediastinal lymph node dissection, and mechanical pleurodesis 11/22/2017 Multiple pulmonary nodules 11/21/2017 COPD 11/21/2017 Resolved Problems Problem Noted Date Diagnosed Date Resolved Date Mediastinal lymphadenopathy presumably due to sarcoidosis 09/30/2017 05/20/2019 Pleural effusion 09/30/2017 04/15/2018 Encounters Date Type Department Care Team Description 11/24/2024 3:00 PM EDT Office Visit [facility] CARDIOLOGY [address] [facility] [address] [place] [address] You Aldridge III, MD Palpitations (Primary Dx); Orthostatic hypotension 11/24/2024 Travel 11/22/2024 11:00 AM EDT Office Visit [facility] PULMONARY & CRITICAL CARE MEDICINE [address] [facility] [address] Jhon Mujica MD History of tobacco use, presenting hazards to health (Primary Dx); Multiple pulmonary nodules; Sarcoidosis 11/22/2024 Travel 10/08/2024 Refill [facility] PULMONARY & CRITICAL CARE MEDICINE [address] [facility] [address] Jhon Mujica MD Sarcoidosis from Last 3 Months Immunizations Immunization Administration Dates Next Due COVID-19 (MODERNA) 1st,2nd,3 rd Dose Monovalent 09/29/2020,09/01/2020 DTaP, Unspecified 10/13/1976, 5,09/24/1972,12/20,1969,1969,1969 Flu Vaccine Quad PF >36MO 01/31/2017 Flu Vaccine Split Quad 01/15/2011 Fluzone (or Fluarix & Flulav al for VFC) >6mos 01/08/2023,05/02/2022,04/06/2020,12/24 Fluzone High-Dose 65+yrs 05/10/2021 Fluzone Quad >6mos (Multi-dose) 01/31/2017 Hepatitis A 04/03/2018 Influenza TIV (IM) 04/03/2018 Influenza, Unspecified 01/07/2017 Measles 10/31/1971,10/05/1970 OPV 12/20/1970,01/25/1970,1969 OPV UF 12/20/1970,01/25/1970,1969 Pneumococcal Conjugate 20-Va lent (PCV20) 08/21/2022,05/02/2022 Pneumococcal Polysaccharide (PPSV23) 01/31/2017 Pneumococcal, Unspecified 01/07/2017 Shingrix 10/28/2024,10/16/2023 Td (TDVAX) 06/15/1996 Td, Unspecified 01/16/1980,07/25/1978,08/08/1971 Tdap 01/25/2019 Family History Medical History Relation Name Comments Cancer Father Emphysema Father Cancer Mother Diabetes Mother Stroke Mother Relation Name Status Comments Brother Alive Father Mother Alive Sister Alive Social History Tobacco Use Types Packs/Day Years [...] 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 Not on file Not on file Last Filed Vital Signs Vital Sign Reading Time Taken Comments Blood Pressure 118/68 11/24/2024 2:37 PM EDT Pulse 63 11/24/2024 2:37 PM EDT Temperature 36 C (96.8 F) 11/22/2024 10:43 AM EDT Respiratory Rate 18 05/02/2022 12:36 PM EST Oxygen Saturation 100% 11/24/2024 2:37 PM EDT Inhaled Oxygen Concentration - - Weight 98.4 kg (217 lb) 11/22/2024 10:43 AM EDT Height 162.6 cm (5' 4.02 ) 11/24/2024 2:37 PM ED T Body Mass Index 37.23 11/22/2024 10:43 AM EDT Plan of Treatment Upcoming Encounters Date Type Department Care Team (Late st Contact Info) Description 04/25/2025 9:00 AM EST Procedure visit [facility] PULMONARY & CRITICAL CARE MEDICINE [address] [place] [address] 04/25/2025 9:30 AM EST Office Visit [facility] PULMONARY & CRITICAL CARE MEDICINE [address] [place] [address] Jhon Mujica MD [address] [place] [address] 11/28/2025 1:30 PM EDT Office Visit [facility] CARDIOLOGY [address] [place] [address] You Aldridge III, MD [address] [place] [address] Health Maintenance Due Date Last Done Comments Annual Gynecologic Pelvic an d Breast Exam 1969 PAP SMEAR 1990 COLOGUARD 2014 COLON CANCER SCREENING 5 YEA R SIGMOIDOSCOPY 2014 CT COLONOGRAPHY 2014 FECAL OCCULT BLOOD TEST 2014 FIT Testing (1 year) 2014 ANNUAL WELLNESS VISIT 09/30/2017 MAMMOGRAM 11/27/2022 11/27/2020, 11/27/2020 INFLUENZA VACCINE 10/29/2024 01/08/2023, , 05/10/2021, Additional history exists LUNG CANCER SCREENING 03/12/2025 03/12/2024 , 07/09/2023, 05/28/2022, Additional history exists TDAP/TD VACCINES (5 - Td or Tdap) 01/25/2029 01/25/2019, 06/15/1996, 01/16/1980, Additional history exists COLONOSCOPY 06/12/2030 06/12/2020 COLORECTAL CANCER SCREENING 06/12/2030 HEPATITIS C SCREENING Completed 12/02/2019 Pneumococcal Vaccine 50+ Completed 023, 05/02/2022, 01/31/2017, Additional history exists ZOSTER VACCINE Completed 10/28/2024, 10/16/2023 Procedures Procedure Name Priority Date/Time Associated Diagnosis Comments CBC AND DIFFERENTIAL Routine 11/22/2024 11:32 AM EDT Sarcoidosis CBC WITH AUTO DIFFERENTIAL Routine 11/22/2024 11:32 AM EDT Sarcoidosis ANGIOTENSIN CONVERTING ENZYME Routine 11/22/2024 11:24 AM EDT Sarcoidosis COMPREHENSIVE METABOLIC PANEL Routine 11/22/2024 11:[address] CHEST WO CONTRAST DIAGNOSTIC Routine 03/12/2024 2:45 PM EST Sarcoidosis HEPATITIS PANEL, ACUTE Routine 11:37 AM EDT Other fatigue Pulmonary sarcoidosis from Last 3 Months or Most Recently Relevant to Health Maintenance Results * (ABNORMAL) CBC Auto Differential (11/22/2024 11:32 AM EDT) WBC 14.49(H) 3.40 - 10.80 10*3/mm3 11/22/2024 11:52 PM EDT [facility] RBC 4.39 3.77 - 5.28 10*6/mm3 11/22/2024 11:52 PM EDT [facility] Hemoglobin 13.8 12.0 - 15.9 g/dL 11/22/2024 11:52 PM EDT [facility] Hematocrit 42.8 34.0 - 46.6 % 11/22/2024 11:52 PM EDT [facility] MCV 97.5(H) 79.0 - 97.0 fL 11/22/2024 11:52 PM EDT [facility] MCH 31.4 26.6 - 33.0 pg 11/22/2024 11:52 PM [facility] MCHC 32.2 31.5 - 35.7 g/dL 11/22/2024 11:52 PM [facility] RDW 13.2 12.3 - 15.4 % 11/22/2024 11:52 PM [facility] RDW-SD 47.2 37.0 - 54.0 fl 11/22/2024 11:52 PM [facility] MPV 12.6(H) 6.0 - 12.0 fL 11/22/2024 11:52 PM [facility] Platelets 316 140 - 450 10*3/mm3 11/22/2024 11:52 PM [facility] Neutrophil % 71.8 42.7 - 76.0 % 11/22/2024 11:52 PM [facility] Lymphocyte % 19.3(L) 19.6 - 45.3 % 11/22/2024 11:52 PM [facility] Monocyte % 7.0 5.0 - 12.0 % 11/22/2024 11:52 PM [facility] Eosinophil % 1.0 0.3 - 6.2 % 11/22/2024 11:52 PM [facility] Basophil % 0.6 0.0 - 1.5 % 11/22/2024 11:52 PM [facility] Immature Grans % 0.3 0.0 - 0.5 % 11/22/2024 11:52 PM [facility] Neutrophils, Absolute 10.40(H) 1.70 - 7.00 10*3/mm3 11/22/2024 11:52 PM [facility] Lymphocytes, Absolute 2.80 0.70 - 3.10 10*3/mm3 11/22/2024 11:52 PM [facility] Monocytes, Absolute 1.01(H) 0.10 - 0.90 10*3/mm3 11/22/2024 11:52 PM [facility] Eosinophils, Absolute 0.15 0.00 - 0.40 10*3/mm3 11/22/2024 11:52 PM EDT [facility] Basophils, Absolute 0.08 0.00 - 0.20 10*3/mm3 11/22/2024 11:52 PM EDT [facility] Immature Grans, Absolute 0.05 0.00 - 0.05 10*3/mm3 11/22/2024 11:52 PM EDT [facility] nRBC 0.0 0.0 - 0.2 /100 WBC 11/22/2024 11:52 PM EDT [facility] Blood Structure of left upper limb / Unknown Venipuncture / Unknown 11/22/2024 11:32 AM EDT 11/22/2024 11:32 AM EDT us Jhon Mujica MD LAB BLOOD ORDERABLES Final R esult [facility]
[address] [place] [address], [place] [phone] * Angiotensin Converting Enzyme (11/22/2024 11:24 AM EDT) Pathologist [facility] Angiotensin Converting Enzyme 61 14 - 82 U/L 11/24/2024 12:10 PM EDT [facility] Blood Structure of left upper limb / Unknown Venipuncture / Unknown 11/22/2024 11:24 AM EDT 11/22/2024 11:24 AM EDT Narrative [facility] - 11/24/2024 12:10 PM EDT Performed at: [facility] [id number] Metal Rivet Machine Operator: Chema Grimaldo PhD, Phone: [phone] us Jhon Mujica MD LAB BLOOD ORDERABLES Final R esult [facility] [address] [place] [address], [place] [phone] * (ABNORMAL) Comprehensive Metabolic Panel (11/22/2024 11:24 AM EDT) Glucose 105(H) 65 - 99 mg/dL 11/22/2024 11:59 PM [facility] BUN 7.0 6.0 - 20.0 mg/dL 11/22/2024 11:59 PM [facility] Creatinine 0.96 0.57 - 1.00 mg/dL 11/22/2024 11:59 PM [facility] Sodium 144 136 - 145 mmol/L 11/22/2024 11:59 PM [facility] Potassium 4.6 3.5 - 5.2 mmol/L 11/22/2024 11:59 PM [facility] Chloride 107 98 - 107 mmol/L 11/22/2024 11:59 PM [facility] CO2 22.9 22.0 - 29.0 mmol/L 11/22/2024 11:59 PM [facility] Calcium 9.5 8.6 - 10.5 mg/dL 11/22/2024 11:59 PM [facility] Total Protein 6.5 6.0 - 8.5 g/dL 11/22/2024 11:59 PM [facility] Albumin 3.6 3.5 - 5.2 g/dL 11/22/2024 11:59 PM [facility] ALT (SGPT) 24 1 - 33 U/L 11/22/2024 11:59 PM [facility] AST (SGOT) 30 1 - 32 U/L 11/22/2024 11:59 PM [facility] Alkaline Phosphatase 121(H) 39 - 117 U/L 11/22/2024 11:59 PM [facility] Total Bilirubin 0.2 0.0 - 1.2 mg/dL 11/22/2024 11:59 PM [facility] Globulin 2.9 gm/dL 11/22/2024 11:59 PM [facility] A/G Ratio 1.2 g/dL 11/22/2024 11:59 PM [facility] BUN/Creatinine Ratio 7.3 7.0 - 25.0 11/22/2024 11:59 PM EDT [facility] Anion Gap 14.1 5.0 - 15.0 mmol/L 11/22/2024 11:59 PM EDT [facility] eGFR 70.0 >60.0 mL/min/1.7 3 11/22/2024 11:59 PM EDT [facility] Blood Structure of left upper limb / Unknown Venipuncture / Unknown 11/22/2024 11:24 AM EDT 11/22/2024 11:24 AM EDT Narrative [facility] - 11/22/2024 11:59 PM EDT GFR [...] MD LAB BLOOD ORDERABLES Final R esult [facility]
[address] [place] [address], * CT Chest Without Contrast Diagnostic (03/12/2024 2:45 PM EST) Anatomical Region Laterality Modality Chest N/A Computed Tomogra phy 03/15/2024 8:13 AM EST Impressions 03/15/2024 8:15 AM EST Impression: 1. No acute cardiopulmonary process. Stable scarring and calcified nodes. 2. Ancillary findings as described above. Electronically Signed: Betsey Bocanegra MD 03/15/2024 8:15 AM EST Workstation ID: [id number] Narrative 03/15/2024 8:[address] CHEST WO CONTRAST DIAGNOSTIC Date of Exam: 03/12/2024 2:41 PM EST Indication: sarcoid follow up. Comparison: 07/09/2023. Technique: Axial CT images were obtained of the chest without contrast administration. Reconstructed coronal and sagittal images were also obtained. Automated exposure control and iterative construction methods were used. Findings: Hilum and Mediastinum: No pathologically enlarged lymph nodes. Normal heart size. No pericardial effusion. Unremarkable thoracic aorta and pulmonary arteries. Lung Parenchyma and Pleura: No focal consolidations. No suspicious pulmonary nodules. Subpleural scarring present. Granulomatous calcifications are present with calcified nodes, stable as compared to the previous study. No endobronchial lesions. No significant pleural effusions. Upper Abdomen: No acute process. Soft tissues: Unremarkable. Osseous structures: No aggressive focal lytic or sclerotic osseous lesions. Procedure Note Betsey Bocanegra MD - 03/15/2024 CT CHEST WO CONTRAST DIAGNOSTIC Date of Exam: 03/12/2024 2:41 PM EST Indication: sarcoid follow up. Comparison: 07/09/2023. Technique: Axial CT images were obtained of the chest without contrastadministration. Reconstructed coronal and sagittal images were alsoobtained. Automated exposure control and iterative construction methodswere used. Findings: Hilum and Mediastinum: No pathologically enlarged lymph nodes. Normalheart size. No pericardial effusion. Unremarkable thoracic aorta andpulmonary arteries. Lung Parenchyma and Pleura: No focal consolidations. No suspiciouspulmonary nodules. Subpleural scarring present. Granulomatouscalcifications are present with calcified nodes, stable as compared to theprevious study. No endobronchial lesions. No significant pleural effusions. Upper Abdomen: No acute process. Soft tissues: Unremarkable. Osseous structures: No aggressive focal lytic or sclerotic osseouslesions. IMPRESSION: Impression: 1. No acute cardiopulmonary process. Stable scarring and calcifiednodes. 2. Ancillary findings as described above. Electronically Signed: Betsey Bocanegra MD 03/15/2024 8:15 AM EST Workstation ID: [id number] Alberta Perez APRN IMG CT ORDERABLES Final Resu lt from Last 3 Months or Most Recently Relevant to Health Maintenance Insurance MEDICAID [place] [employer] [facility] HMO Advance Directives * CPR (Attempt to Resuscitate) (Latest Code Status on File) Date Activated Date Inactivated Comments 11/21/2017 3:14 PM 11/25/2017 1:43 PM Question Answer Comments Code Status (Patient has no pulse and is not breathing): CPR (Attempt to Resuscitate) Medical Interventions (Patie nt has pulse or is breathing): Full Care Teams Truer Pinion And Wheel Relationship Specialty Start Date End Date Sonia Jerez APRN [facility] [address] [place] [address] PCP - General Family Medicine 01/03/20
--- OUTSIDE RECORDS SUMMARY | 2025-01-04 14:23 | XMS_ITS | Patient Health Record ---
Author Organization [facility] Address [address] [place] [address] Care Team Providers Care Mortgage Originator Name Role Phone Jean Carlos Adams Primary Care Provider Sonia Jerez Unavailable [phone] Migration, Provider Unavailable Unavailable Allergies Allergen (clinical drug ingredient) Drug/Non Drug Allergy documented on EMR Reaction Allergy Type Onset Date Status nickel Nickel rash Allergy Active Results Component Value Reference Range Notes H-MINIRP Reviewed date:06/22/2024 09:37:05 AM Interpretation: Performing Lab: Notes/Report: RHINOPCR Not Detected NotDetected INFLUAPCR Not Detected NotDetected INFLUB Not Detected NotDetected RSVPCR Not Detected NotDetected COVIDHMH Not Detected NotDetected called to the ordering physician. Infection control and the physician?s office will continue to report positive covid Effective 11/21/20, Positive covid results will no longer be results to the local Health Department as required. This assay is for in vitro diagnostic use under FDA Emergency Use Authorization only. Negative results do not preclude infection with SARS CoV 2 virus and should not be the sole basis of a patient treatment/management or public health decision. Follow up testing should be performed according to the current CDC recommendations. X ray : Chest Reviewed date:06/24/2024 05:48:59 PM Interpretation: Performing Lab: Notes/Report: Medications Medication SIG (Take, Route, Frequency, Duration) Notes Start Date End Date Status Kaopectate 262 MG/15ML 30 mL orally 4 [...] for e-prescription and drug interaction check* Active Bisoprolol Fumarate 5 MG 1/2 tablet orally once a day; Duration: 90 days Active Methotrexate Sodium 7.5 MG 4 tabs orally once a week Active Folic Acid 1 MG 1 tab(s) orally once a day; Duration: 90 days Active predniSONE 2.5 MG 1 tab(s) orally once a day Active Veozah 45 MG 1 tab(s) orally once a day Active Pravastatin Sodium 20 MG 1 tab(s) orally once a day; Duration: 90 days 06/21/2024 Active MiraLax - DIRECTED ORALLY ONCE A DAY *Please review and pick correct strength-formulati on from [employer] options. If intended option is not shown, discontinue and re-order from Quick Search* Active Ubrelvy 100 MG 1 tablet as needed, may take second dose at least 2 hours after first dose up to 2 tablets per day as needed Orally Once a day; Duration: 30 days 07/07/2024 Active Loperamide HCl 2 mg TAKE ONE CAPSULE BY MOUTH TWICE DAILY MAY CAUSE DROWSINESS; Duration: 30 Active Diclofenac Sodium 1 % 2 gram applied topically 4 times a day; Duration: 14 days 10/17/2023 Active Gabapentin 300 MG 1 capsule Orally Once a day Active Stiolto Respimat 2.5 MCG-2.5 MCG/INH INHALE 2 PUFFS BY MOUTH EVERY DAY; Duration: 30 *Please review and pick correct strength-formulati on from [employer] options. If intended option is not shown, discontinue and re-order from Quick Search* Active busPIRone HCl 10 mg TAKE ONE TABLET BY MOUTH TWICE DAILY; Duration: 15 Active Cyclobenzaprine HCl 5 mg TAKE ONE TABLET BY MOUTH EVERY DAY MAY CAUSE DROWSINESS; Duration: 30 Active NURTEC ODT 75 MG TAKE ONE TABLET BY MOUTH EVERY DAY NEEDED FOR MIGRAINE; Duration: 30 *Please review for potential replacement for e-prescription and drug interaction check* Active Immunizations Vaccine Route Administration Date Status Comme nts Adacel (Tdap) Unknown 01/25/2019 Administered Covid Moderna Unknown 09/01/2020 Administered Covid Moderna Unknown 09/29/2020 Administered Fluvirin--Influenza vaccine 3+ year IM Intramuscular 01/15/2011 Administered FLUZONE 6MO - OLDER IM Intramuscular 01/08/2023 Administer ed Influenza-Fluzone 3+years (NON-MEDICARE) IM Intramuscular 01/31/2017 Administered Prevnar PCV-20 (Pneumococcal conjugate 20) Unknown 08/21/2022 Administered SHINGRIX IM Intramuscular 10/16/2023 Administered SHINGRIX IM Intramuscular 10/28/2024 Administered Social History Tobacco Use: Social History Observation Description Date Details (start date - stop date) Former Smoker NA - NA Smoking: Question Answer Notes Are you a: former smoker How long has it been since you last smoked? 1-5 years Problems Problem Type SNOMED Code ICD Code Onset Dates Problem Status W/U Status Risk Notes Problem Sarcoidosis of lung (08600920) Sarcoidosis of lung (D86.0) Active confirmed Problem Primary insomnia (6484800) Primary insomnia (F51.01) Active confirmed Problem Bilateral tinnitus (6248540540894) Tinnitus, bilateral (H93.13) Active confirmed Problem Irritable bowel syndrome with diarrhea (646893587) Irritable bowel syndrome with diarrhea (K58.0) Active confirmed Problem Rotator cuff arthropathy of left shoulder (disorder) (74563050156775807) Other specific arthropathies, not elsewhere classified, left shoulder (M12.812) Active confirmed Problem Pain of right shoulder region (finding) (7379447271) Pain in right shoulder (M25.511) Active confirmed Problem Nontraumatic rupture of muscle or tendon structure of rotator cuff of left shoulder (disorder) (3766635305524552) Unspecified rotator cuff tear or rupture of left shoulder, not specified as traumatic (M75.102) Active confirmed Problem Tobacco use (233537549) Tobacco use (Z72.0) Active confirmed Problem History of gastrointestinal disease (782523407) Personal history of other diseases of the digestive system (Z87.19) Active confirmed Problem Mixed anxiety and depressive disorder (745800738) Depression with anxiety (F41.8) Active confirmed Problem Essential hypertension (95815838) Essential hypertension (I10) Active confirmed Problem Acute exacerbation of chronic obstructive airways disease (020135516) COPD exacerbation (J44.1) Active confirmed Problem Chronic pain (93255507) Other chronic pain (G89.29) Active confirmed Problem Vertigo (200568516) Vertigo (R42) Active confir med Problem COPD - Chronic obstructive pulmonary disease (37316076) Chronic obstructive pulmonary disease, unspecified COPD type (J44.9) Active confirmed Problem Obese class II (665476092606104) BMI 37.0-37.9, adult (Z68.37) Active confirmed Problem Hiatal hernia (47328654) Hiatal hernia (K44.9) Active confirmed Problem Inflammation of right sacroiliac joint (2833999235) Inflammation of right sacroiliac joint (M46.1) Active confirmed Problem Overactive urinary bladder (disorder) (986265157) OAB (overactive bladder) (N32.81) Active confirmed Problem Lipodystrophy (65117700) Lipodystrophy (E88.1) Active confirmed Problem Obese class II (035447499536258) BMI 35.0-35.9,adult (Z68.35) Active confirmed Problem Sciatica (71293270) Right sided sciatica (M54.31) Active confirmed Problem Daytime somnolence (387907374759) Daytime somnolence (R40.0) Active confirmed Problem Allergic rhinitis caused by pollen (57977684) Seasonal allergic rhinitis due to pollen (J30.1) Active confirmed Problem Gastroesophageal reflux disease (disorder) (076409149) Chronic GERD (K21.9) Active confirmed Problem Goiter (0430729) Enlarged thyroi d (E04.9) Active confirmed Problem Cardiac arrhythmia (262146748) Irregular heart rhythm (I49.9) Active confirmed Problem Postprocedural states (673406177) Other specified postprocedural states (Z98.890) Active confirmed Problem Leukocytosis (250918874) Leukocytosis, unspecified type (D72.829) Active confirmed Problem Status migrainosus (011038531) Migraine with status migrainosus, not intractable, unspecified migraine type (G43.901) Active confirmed Problem Thyromegaly (7270068) Thyromegaly (E01.0) Active confirmed Problem Mixed incontinence (129359816) Urinary incontinence, mixed (N39.46) Active confirmed Problem Obese class II (finding) (223534685504521) Obesity, Class II, BMI 35-39.9 (E66.9) Active confirmed Problem Mixed hyperlipidemia (733383069) Mixed dyslipidemia (E78.2) Active confirmed Problem Long-term current use of systemic steroid (653426973022584) Current chronic use of systemic steroids (Z79.52) Active confirmed Problem Cardiac arrhythmia (363554185) Irregular heartbeat (I49.9) Active confirmed Problem COVID-19 (016540445) COVID-19 (U07.1) Active confirmed Problem Drug-induced immunodeficiency (disorder) (771509530) 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) Active confirmed Problem Episodic migraine (387523806977577) Episodic migraine (G43.909) Active confirmed Problem Cervical arthritis (490710167) Cervical arthritis (M47.812) Active confirmed Vital Signs Heart Rate 84 /min 12/02/2024 Temperature 97.5 degrees Fahrenheit 12/02/2024 Oximetry 95 06/21/2024 Blood pressure diastolic 74 mm Hg 12/02/2024 Height 5 ft 3 in in 12/02/2024 Blood pressure systolic 108 mm Hg 12/02/2024 Weight 218.4 lbs 12/02/2024 BMI 38.68 kg/m2 12/02/2024 Encounters Encounter Location Date Provider Diagnosis [facility] [address] [facility] [address] [place], [place] [address] 07/03/2024 Provider Migration Mixed dyslipidemia E78.2 [facility] [address] [facility] [address] [place] [address] 06/10/2024 Sonia Jerez Mixed dyslipidemia E78.2 ; Sarcoidosis of lung D86.0 ; OAB (overactive bladder) N32.81 ; Obesity, Class II, BMI 35-39.9 E66.9 ; Leukocytosis, unspecified type D72.829 ; Depression with anxiety F41.8 ; Other chest pain R07.89 and Episodic migraine G43.909 [facility] [address] [facility] [address] [place] [address] 06/21/2024 Sonia Meri Acute febrile illnes s R50.9 ; Acute cough R05.1 ; SOB (shortness of breath) R06.02 and Mixed dyslipidemia E78.2 [facility] [address] [facility] [address] [place], [place] [address] 10/28/2024 Soniaah Florence Medicare annual wellness visit, subsequent Z00.00 ; Chronic obstructive pulmonary disease, unspecified COPD type J44.9 ; Sarcoidosis of lung D86.0 ; OAB (overactive bladder) N32.81 ; Obesity, Class II, BMI 35-39.9 E66.9 ; Depression with anxiety F41.8 ; BMI 37.0-37.9, adult Z68.37 ; Encounter for immunization Z23 ; Diaphoresis R61 ; Irritable bowel syndrome with diarrhea K58.0 ; Current chronic use of systemic steroids Z79.52 ; Chronic GERD K21.9 ; Episodic migraine G43.909 ; Mixed dyslipidemia E78.2 ; Essential hypertension I10 and Right sided sciatica M54.31 [facility] [address] [facility] [address] [place], [place] [address] 12/02/2024 Sonia Meri OAB (overactive bladder) N32.81 ; Depression with anxiety F41.8 and Diaphoresis R61 [facility] [address] [facility] [address] [place], [place] [address] 05/31/2024 Sonia Meri [facility] [address] [place], [place] [address] 06/11/2024 Sonia Meri [facility] [address] [facility] [address] [place] [address] 06/15/2024 Sonia Meri [facility] [address] [facility] [address] [place], [place] [address] 06/22/2024 Sonia Meri [facility] [address] [place] [address], [place] [address] 07/07/2024 Sonia Meri [facility] [address] [facility] [address] [place], [place] [address] 10/06/2024 Sonia Meri [facility] [address] [facility] [address] [place] [address] 11/24/2024 Sonia Jerez Assessments Encounter Date Diagnosis (ICD Code) Assessment Notes Treatment Notes Treatment Clinical Notes Section Notes 06/10/2024 Sarcoidosis of lung (ICD-10 - D86.0) 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 Rec PCR panel and CXR to help guide management. 06/21/2024 Acute cough (ICD-10 - R05.1) 10/28/2024 Chronic obstructive pulmonary disease, unspecified COPD type (ICD-10 - J44.9) No acute complaints at this time. Continue Stiolto Respimat 60 ACT 2.5 mcg-2.5 mcg/inh aerosol INHALE 2 PUFFS BY MOUTH EVERY DAY as directed. 10/28/2024 Medicare annual wellness visit, subsequent (ICD-10 - Z00.00) Update vaccinations, otherwise UTD on preventive care 12/02/2024 Depression with anxiety (ICD-10 - F41.8) Recommend decrease venlafaxine to every other day for a month and then discontinue completely. Strict return precautions reviewed. Will plan to follow-up in 2 months to see how she is doing without this both mentally and physically. 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 Patient on Gemtesa 75 mg tablet TAKE ONE TABLET BY MOUTH EVERY DAY. 06/21/2024 Mixed dyslipidemia (ICD-10 - E78.2) increasingly elevated over the past 18 months, weight gain while on steroids, rec start treatment and monitor LFTs 06/10/2024 Obesity, Class II, BMI 35-39.9 (ICD-10 - E66.9) complicates care and has trended back up since resuming steroids, weight loss efforts encouraged 07/03/2024 Mixed dyslipidemia (ICD-10 - E78.2) 10/28/2024 OAB (overactive bladder) (ICD-10 - N32.81) Continue with current plan of care. Patient on Gemtesa 75 mg tablet TAKE ONE TABLET BY MOUTH EVERY DAY. 10/28/2024 Obesity, Class II, BMI 35-39.9 (ICD-10 - E66.9) complicates care but trending down,hopefully being off of steroids will be helpful 06/10/2024 Leukocytosis, unspecified type (ICD-10 - D72.829) Pulmonology following while on MTX 06/10/2024 Depression with anxiety (ICD-10 - F41.8) continue venlafaxine, buspar 10/28/2024 Depression with anxiety (ICD-10 - F41.8) we discussed gradually weaning venlafaxine to see if this helps with diaphoresis...F U again in 4 weeks to discussed additional decrease and to monitor for return of anxiety symptoms 10/28/2024 BMI 37.0-37.9, adult (ICD-10 - Z68.37) Awake complicates all aspects of care. Has really struggled with weight gain after being on steroids chronically for the past few years to manage her sarcoidosis. Importance of calorie control and regular activity reviewed 06/10/2024 Other chest pain (ICD-10 - R07.89) will review EKG with Dr Adams, no acute changes. no associated symptoms, monitor 06/10/2024 Episodic migraine (ICD-10 - G43.909) Continue Nurtec, triptans ineffective and with side effects previously 10/28/2024 Encounter for immunization (ICD-10 - Z23) 10/28/2024 Diaphoresis (ICD-10 - R61) 10/28/2024 Irritable bowel syndrome with diarrhea (ICD-10 - K58.0) improved overall 10/28/2024 Current chronic use of systemic steroids (ICD-10 - Z79.52) 10/28/2024 Chronic GERD (ICD-10 - K21.9) she'd like to try weaning omeprazole, we discussed doing this very slowly over several weeks if tolerated 10/28/2024 Episodic migraine (ICD-10 - G43.909) Ubrelvy PRN 10/28/2024 Mixed dyslipidemia (ICD-10 - E78.2) continue statin therapy 10/28/2024 Essential hypertension (ICD-10 - I10) normal on low dose bisoprolol 10/28/2024 Right sided sciatica (ICD-10 - M54.31) mild intermittent symptoms...disc ussed first trial of stretching. consider PT if progression/per sistent symptoms Plan Of Treatment Pending Test Test Name Order Date X ray : Chest 07/07/2017 X ray : Spines, Cervical 05/08/2023 Ultrasound : Thyroid 11/13/2022 Physical Therapy 11/11/2014 Occupational Therapy : Eval & Treatment 09/21/2019 H-STOOL FOR WBC SMEAR 10/30/2013 H-OVA AND PARASITE EXAM 10/30/2013 H-STOOL CULTURE 10/30/2013 C-CBC 10/24/2010 C-CMP 10/24/2010 C-LIPID PANEL 10/24/2010 C-TSH 10/24/2010 C-H-PYLORI 10/24/2010 H-CLOSTRIDIUM DIFFICLE TOXIN A & B 10/30 Rapid Flu, A 06/13/2012 Rapid Flu, B 06/13/2012 M-Lipid Panel 06/10/2024 M-Diarrhea Panel, PCR 01/10/2020 M-C. Diff Toxin Assay 03/30/2019 M-COVID PCR SINGLE RAPID 02/01/2020 Physical Therapy Eval and Treat 05/12/19 24 M-MINIRP 06/21/2024 Next Appt Details Provider Name:Sonia Talamantes ce, 02/03/2025 02:00:00 PM, [address], [place], [address], Insurance Providers Payer Name Payer Address Payer Phone Subscriber Number Group Number Insured Name Patient Relationship to Insured Coverage Start Date Coverage End Date [employer] MED[employer] DUAL [address] [address] [place] [phone] [id number] Nora Urbano Self - patient is the insured Medications Administered Medication Instructions Date of Administration Dosage Notes Dexamethasone 4mg Injection 11/11/2023 4 mg Kenalog 40mg 12/19/2016 40 mg Kenalog 04/02/2014 1 mL Medical (General) History Medical History History ICD Code degenerative joint disease hypertension Tobacco use, stopped in 2018 hearing aids migraine headache arthritis herniated disc IBS esophageal spasms COPD hiatal hernia s/p surgical repair 2018 Pulmonary sarcoidosis, dx vi a VATS procedure 2018. Dr Rowland and Dr Mujica at [facility] emphysema Covid 19 EGD/Colonoscopy May 2020 followed by Bipin Salter. SIBO Surgical History Surgery Date(Month/Year) carpal tunnel cholecystectomy tonsillectomy umbilical hernia repair Esophageal dilation 2009 colonoscopy 2009 knee surgery 2016 , Dr Baeza, diaphragmatic hernia repair 2018 tried to have biopsy of lung 07/2017 biopsy of lymph node in lung-throacentes is of lung 10/2017 Bladder tuck 10/2018 colonoscopy/EGD 05/2020 rt rotator cuff surgery 2020 EGD/Colonoscopy 09/2023 Hospitalization History Reason Date(Month/Year) biopsy of lung 10/2017 surgeries
--- NOTE | 2025-01-04 14:30 | MM_ITS ---
PROCEDURE INFORMATION: Exam: MG Bilateral Screening 3D Mammography Exam date and time: 01/04/2025 2:22 PM Age: 54 years old Clinical indication: Screening mammogram TECHNIQUE: Imaging protocol: Bilateral Screening tomosynthesis and 2D mammography including computer-aided detection (CAD) when performed. COMPARISON: 1. MG MM DIG SCREENING MAMM BI W/CAD 12/31/2023 12:41 PM 2. MG MM DIG SCREENING MAMM BI W/CAD 12/16/2022 1:11 PM 3. MG MM DIG SCREENING MAMM BI W/CAD 11/30/2021 12:59 PM 4. MG MM DIG SCREENING MAMM BI W/CAD 11/27/2020 11:08 AM FINDINGS: MAMMOGRAPHY: Breast composition: There are scattered areas of fibroglandular density. Mass: None. Architectural distortion: No new or suspicious architectural distortion. Calcifications: No new or suspicious calcifications are present Asymmetric density: No new or suspicious asymmetric density is present Skin thickening: None. Axillary adenopathy: None. IMPRESSION: No mammographic evidence of malignancy. Recommend annual screening mammography unless otherwise clinically indicated. ASSESSMENT: BI-RADS category 1: Negative.
== END 2025-01-04 23:59 | disposition home or self-care (01) ==
LOC: RAD 14:19
PROVIDERS: PCP Nurse Practitioner Family; Visit Provider Obstetrics & Gynecology
DX: Z12.31 Encounter for screening mammogram for malignant neoplasm of breast (principal); R92.323 Mammographic fibroglandular density, bilateral breasts
CPT/HCPCS: 77063; 77067

== ENCOUNTER 2025-02-21 13:39 | Outpatient (CLI) | payer MEDICARE, MEDICAID, SELFPAY ==
--- OUTSIDE RECORDS SUMMARY | 2017-12-24 08:53 | XMS_ITS | Encounter Summary ---
Author Organization [facility] ystem Address [address] [place] [address] Care Team Providers Care Rn Hospital Name Role Phone MeriSonia pretty KIRILL Primary Care Provid er Encounter Details Date Type Department Care Team (Late st Contact Info) Description 12/24/2017 9:53 AM EDT Hospital Encounter [facility] PULMONARY & CRITICAL CARE MEDICINE [address] [place] [phone] Social History Tobacco Use Types Packs/Day Years Used Date Smoking Tobacco: Former Cigarettes 1.5 26 0 06/19/1990 - 06/19/2016 Passive Smoke Exposure: Past Smokeless Tobacco: Never Alcohol Use Standard Drinks/Week Comments No 0 (1 standard drink = 0.6 oz pur e alcohol) Comments No Sex and Gender Information Value Date Recorded Sex Assigned at Female 08/24/2024 12:08 AM EDT Legal Sex Female 10:38 AM EDT Gender Identity Not on file Sexual Orientation Straight 08/24/2024 12 :08 AM EDT 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 Not on file Not on file Not on file documented as of this encounter Plan of Treatment Upcoming Encounters Date Type Department Care Team (Late st Contact Info) Description 04/25/2025 9:00 AM EST Procedure visit [facility] PULMONARY & CRITICAL CARE MEDICINE [address] [place] [address] 04/25/2025 9:30 AM EST Office Visit [facility] PULMONARY & CRITICAL CARE MEDICINE [address] [place] [phone] Jhon Mujica MD [address] [place] [address] 11/28/2025 1:30 PM EDT Office Visit [facility] [address] [facility] [address] [place] [address] You Aldridge III, MD [address] [facility] [address] [place], [place] [id number] documented as of this encounter Procedures Procedure Name Priority Date/Time Associated Diagnosis Comments XR CHEST PA AND LATERAL Routine 12/24/2017 10:11 AM EDT Sarcoidosis documented in this encounter Results * XR Chest PA & Lateral (12/24/2017 10:11 AM EDT) Anatomical Region Laterality Modality Body, Chest N/A Radiographic Itzel ging Narrative 12/24/2017 6:08 PM EDT Chest x-ray PA and lateral Study date: December 24, 2017 Indication: Postoperative follow-up, dyspnea, sarcoidosis. Comparison: Prior chest x-ray from November 23, 2017 Interpretation: Trachea is midline. Main liliana is sharp. There is no cardiomegaly. Left hemidiaphragm is slightly elevated. There is a small density adjacent to the left heart border likely representing atelectasis and actually improved from prior study. Scarring is present in the left upper lung field with improvement of air space opacities in that region. The previously placed left sided chest tube has been removed. No significant pleural effusion. There are degenerative changes to the thoracic spine. No new radiographic chest abnormality. Impression: Postoperative changes with residual scarring and atelectasis along with chronic changes and no acute radiographic chest abnormality. us Jhon Mujica MD [facility] DIAGNOSTIC IMAGING ORDER MEREDITH Final Result documented in this encounter Visit Diagnoses Not on filedocumented in this encounter Additional Health Concerns Infection Onset Date Last Indicated Resolved Time COVID (rule out) 10/07/2019 10/07/2019 10/14/2019 9:10 PM EDT COVID (rule out) 07/19/2020 07/19/2020 07/24/2020 8:42 AM EDT documented as of this encounter Care Teams Rn Hospital Relationship Specialty Start Date End Date Sonia Jerez APRN [facility] [address] [place] [address] PCP - General Family Medicine 09/11/17 10/18/19 documented as of this encounter
--- OUTSIDE RECORDS SUMMARY | 2021-08-02 11:42 | XMS_ITS | Encounter Summary ---
Author Organization 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 Not on file Not on file documented as of this encounter Plan of Treatment Upcoming Encounters Date Type Department Care Team (Late st Contact Info) Description 04/25/2025 9:00 AM EST Procedure visit [facility] PULMONARY & CRITICAL CARE MEDICINE [address] [place] [address] 04/25/2025 9:30 AM EST Office Visit [facility] PULMONARY & CRITICAL CARE MEDICINE [address] [place] [address] Jhon Mujica MD [address] [place] [address] 11/28/2025 1:30 PM EDT Office Visit [facility] [address] [facility] [address] [place] [address] You Aldridge III, MD [address] [facility] [address] [place], [place] [id number] documented as of this encounter Procedures Procedure Name Priority Date/Time Associated Diagnosis Comments XR CHEST PA AND LATERAL Routine 08/02/2021 12:50 PM EDT Sarcoidosis documented in this encounter Results * XR Chest PA & Lateral (08/02/2021 12:50 PM EDT) Anatomical Region Laterality Modality Body, Chest N/A Radiographic Itzel ging Narrative 08/02/2021 1:58 PM EDT Chest x-ray PA and lateral Study date: August 02, 2021 Indication: Follow-up sarcoidosis Comparison: Prior chest x-ray from December 24, 2017, CT abdomen/pelvis February 27, 2018 Interpretation: Trachea is midline. Main liliana is sharp. There is no cardiomegaly. There is overall improvement of hazy opacity of the left lower lobe and to a lesser extent left upper lobe and right lower lobe laterally compared to prior chest x-ray on December 24, 2017. Initially, it appeared there was some subdiaphragmatic air under the right diaphragm. After review of lateral film, and prior CT abdomen/pelvis, it appears that this area is almost certainly intraluminal, and a portion of the colon anterior to the liver (see image #43 of series [address] abdomen February 27 2018). No new abnormality is seen. Impression: Overall improvement in parenchymal lung densities with some residual scarring consistent with improved sarcoidosis given patient history. Air under right diaphragm likely represents intraluminal air (see above interpretation). us Jhon Mujica MD IMG DIAGNOSTIC IMAGING ORDER MEREDITH Final Result documented in this encounter Visit Diagnoses Not on filedocumented in this encounter Care Teams Graduate Teaching Associate Relationship Specialty Start Date End Date Sonia Jerez APRN [address] [place] [facility] [address] [place] [address] PCP - General Family Medicine 01/03/20 documented as of this encounter
--- OUTSIDE RECORDS SUMMARY | 2021-11-14 11:11 | XMS_ITS | Encounter Summary ---
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 Not on file documented as of this encounter Plan of Treatment Upcoming Encounters Date Type Department Care Team (Late st Contact Info) Description 04/25/2025 9:00 AM EST Procedure visit [facility] PULMONARY & CRITICAL CARE MEDICINE [address] [place] [address] 04/25/2025 9:30 AM EST Office Visit [facility] PULMONARY & CRITICAL CARE MEDICINE [address] [place] [address] Jhon Mujica MD [address] [place] [address] 11/28/2025 1:30 PM EDT Office Visit [facility]ARDIOLOG[facility] [address] [facility] [address] [place] [address] You Aldridge III, MD [address] [facility] [address] [place], [place] [phone] documented as of this encounter Procedures Procedure Name Priority Date/Time Associated Diagnosis Comments XR CHEST PA AND LATERAL Routine 11/14/2021 12:19 PM EDT Sarcoidosis documented in this encounter Results * XR Chest PA & Lateral (11/14/2021 12:19 PM EDT) Anatomical Region Laterality Modality Body, Chest N/A Radiographic Itzel ging Narrative 11/14/2021 1:01 PM EDT Chest x-ray PA and lateral Study date: November 14 Indication: Follow-up sarcoidosis Comparison: Prior chest x-ray from August 02, 2021 Interpretation: Trachea is midline. Main liliana is sharp. There is no cardiomegaly. Stable findings from prior exam including bilateral calcified lymphadenopathy and postinflammatory changes. Appearance of subdiaphragmatic air seen on prior chest x-ray has lessened, but is still present. Review of prior imaging shows that this is likely intraluminal air from an area of colon anteriorly that is adjacent to the diaphragm. No new infiltrate or mass. No pleural effusion. There is kyphosis which is stable. Impression: Stable postinflammatory scarring and calcification consistent with patient's history of sarcoidosis with no new radiographic chest abnormality. us Jhon Mujica MD IMG DIAGNOSTIC IMAGING ORDER MEREDITH Final Result documented in this encounter Visit Diagnoses Not on filedocumented in this encounter Care Teams Woodworking Machine Feeder Relationship Specialty Start Date End Date Sonia Jerez APRN [address] [facility] [address] [address] PCP - General Family Medicine 01/03/20 documented as of this encounter
--- OUTSIDE RECORDS SUMMARY | 2023-12-18 10:26 | XMS_ITS | Encounter Summary ---
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 Not on file Not on file documented as of this encounter Plan of Treatment Upcoming Encounters Date Type Department Care Team (Late st Contact Info) Description 04/25/2025 9:00 AM EST Procedure visit [facility] PULMONARY & CRITICAL CARE MEDICINE [address] [place] [address] 04/25/2025 9:30 AM EST Office Visit [facility] PULMONARY & CRITICAL CARE MEDICINE [address] [place] [address] Jhon Mujica MD [address] [place] [address] 11/28/2025 1:30 PM EDT Office Visit [facility] [address] [facility] [address] [place] [address] You Aldridge III, MD [address] [place], [place] [phone] documented as of this encounter Procedures Procedure Name Priority Date/Time Associated Diagnosis Comments XR CHEST PA AND LATERAL Routine 12/18/2023 11:26 AM EDT Sarcoidosis documented in this encounter Results * XR Chest PA & Lateral (12/18/2023 11:26 AM EDT) Anatomical Region Laterality Modality Body, Chest N/A Radiographic Itzel ging Narrative 12/21/2023 6:22 PM EDT Chest x-ray PA and lateral Study date: December 18, 2023 Indication: Follow-up sarcoidosis Comparison: Prior chest x-ray from November 14, 2021 Interpretation: Trachea is midline but slightly tortuous. Main liliana is splayed similar to prior. There is evidence of calcification within the mediastinum and hilar locations. There are chronic postinflammatory changes which are not significantly changed from prior study. No pleural effusion or pneumothorax. Slightly elevated right hemidiaphragm similar to prior. No acute infiltrate or mass. Impression: Chronic postinflammatory changes and calcification unchanged from prior study. No acute radiographic chest abnormality. Jhon Mujica MD IMG DIAGNOSTIC IMAGING ORDER MEREDITH Final Result documented in this encounter Visit Diagnoses Not on filedocumented in this encounter Care Teams Visual Associate Relationship Specialty Start Date End Date Sonia Jerez KIRILL [place] [address] [place] [address] PCP - General Family Medicine 01/03/20 documented as of this encounter
--- OUTSIDE RECORDS SUMMARY | 2024-08-09 12:25 | XMS_ITS | Encounter Summary ---
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 Not on file Not on file documented as of this encounter Plan of Treatment Upcoming Encounters Date Type Department Care Team (Late st Contact Info) Description 04/25/2025 9:00 AM EST Procedure visit [facility] PULMONARY & CRITICAL CARE MEDICINE [address] [place] [address] 04/25/2025 9:30 AM EST Office Visit [facility] PULMONARY & CRITICAL CARE MEDICINE [address] [place] [address] Jhon Mujica MD [address] [place] [address] 11/28/2025 1:30 PM EDT Office Visit [facility] [address] [facility] [address] [place] [phone] You Aldridge III, MD [address] [facility] [address] [place], [place] [phone] documented as of this encounter Procedures Procedure Name Priority Date/Time Associated Diagnosis Comments XR CHEST PA AND LATERAL Routine 08/09/2024 1:29 PM EDT Subacute cough documented in this encounter Results * XR Chest PA & Lateral (08/09/2024 1:29 PM EDT) Anatomical Region Laterality Modality Body, Chest N/A Radiographic Itzel ging Narrative 08/09/2024 1:59 PM EDT Chest x-ray PA and lateral Study date: August 09, 2024 Indication: Follow-up sarcoidosis with recent reported bronchitis. Comparison: Prior chest x-ray from December 18, 2023 Interpretation: Trachea is midline. Main liliana is slightly splayed. No cardiomegaly. Surgical changes on the left. Mild chronic scarring scattered bilaterally with no clearly acute radiographic chest abnormality. Stable calcified adenopathy. Impression: Chronic stable changes with no acute radiographic chest abnormality. us Jhon Mujica MD IMG DIAGNOSTIC IMAGING ORDER MEREDITH Final Result documented in this encounter Visit Diagnoses Not on filedocumented in this encounter Care Teams Reed Dipper Relationship Specialty Start Date End Date Sonia Jerez APRN [address] [facility] [address] [place] [address] PCP - General Family Medicine 01/03/20 documented as of this encounter
--- OUTSIDE RECORDS SUMMARY | 2025-02-21 13:52 | XMS_ITS | Encounter Summary ---
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 [employer] Not on file Not on file Not on file documented as of this encounter Plan of Treatment Upcoming Encounters Date Type Department Care Team (Late st Contact Info) Description 04/25/2025 9:00 AM EST Procedure visit [facility] [address] [place] [address] 04/25/2025 9:30 AM EST Office Visit [facility]IC[facility] [address] [place] [address] Jhon Mujica MD [address] [place] [address] 11/28/2025 1:30 PM EDT Office Visit [facility] CARDIOLOGY [address] [place] [address] You Aldridge III, MD [address] [place] [address] documented as of this encounter Visit Diagnoses Not on filedocumented in this encounter Care Teams Car Varnisher Relationship Specialty Start Date End Date Sonia Jerez APRN [address] [facility] [address] [place] [address] PCP - General Family Medicine 01/03/20 documented as of this encounter
--- OUTSIDE RECORDS SUMMARY | 2025-02-21 13:52 | XMS_ITS | Clinical Summary ---
[facility] Address [address] [place] [address] Care Team Providers Care Health Records Technology Teacher Name Role Phone Sonia Jerez APRN Primary [...] Encounters Date Type Department Care Team Description 02/08/2025 Telephone [facility] [address] [place] [address] Navigator, Lung 11/24/2024 3:00 PM EDT Office [facility] CARDIOLOGY [address] [place] [address] You Aldridge III, MD Palpitations (Primary Dx); Orthostatic hypotension 11/24/2024 Travel 11/22/2024 11:00 AM EDT Office Visit 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 PULMONARY [facility]ITICAL CARE MEDICINE [address] [place] [address] 04/25/2025 9:30 AM EST Office Visit [facility] PULMONARY & CRITICAL CARE MEDICINE [address] [place] [address] Jhon Mujica MD [address] [place] [address] 11/28/2025 1:30 PM EDT Office Visit [facility] CARDIOLOGY [address] [place] [address] You Aldridge III, MD [address] [place], [place] [id number] Health Maintenance Due Date Last Done Comments [...] 11/22/2024 11:52 PM EDT [facility] RBC 4.39 3.77 - 5.28 10*6/mm3 11/22/2024 11:52 PM EDT [facility] Hemoglobin 13.8 12.0 - 15.9 g/dL 11/22/2024 11:52 PM EDT [facility] Hematocrit 42.8 34.0 - 46.6 % 11/22/2024 11:52 PM EDT [facility] MCV 97.5(H) 79.0 - 97.0 fL 11/22/2024 11:52 PM EDT [facility] MCH 31.4 26.6 - 33.0 pg 11/22/2024 11:52 PM EDT [facility] MCHC 32.2 31.5 - 35.7 g/dL 11/22/2024 11:52 PM [facility] RDW 13.2 12.3 - 15.4 % 11/22/2024 11:52 PM [facility] RDW-SD 47.2 37.0 - 54.0 fl 11/22/2024 11:52 PM [facility] MPV 12.6(H) 6.0 - 12.0 fL 11/22/2024 11:52 PM T [facility] Platelets 316 140 - 450 10*3/mm3 11/22/2024 11:52 PM [facility] Neutrophil % 71.8 42.7 - 76.0 % 11/22/2024 11:52 PM [facility] Lymphocyte % 19.3(L) 19.6 - 45.3 % 11/22/2024 11:52 PM [facility] Monocyte % 7.0 5.0 - 12.0 % 11/22/2024 11:52 PM [facility] Eosinophil % 1.0 0.3 - 6.2 % 11/22/2024 11:52 PM T [facility] Basophil % 0.6 0.0 - 1.5 % 11/22/2024 11:52 PM [facility] Immature Grans % 0.3 0.0 - 0.5 % 11/22/2024 11:52 PM T [facility] Neutrophils, Absolute 10.40(H) 1.70 - 7.00 10*3/mm3 11/22/2024 11:52 PM [facility] Lymphocytes, Absolute 2.80 0.70 - 3.10 10*3/mm3 11/22/2024 11:52 PM [facility] Monocytes, Absolute 1.01(H) 0.10 - 0.90 10*3/mm3 11/22/2024 11:52 PM T [facility] Eosinophils, Absolute 0.15 0.00 - 0.40 10*3/mm3 11/22/2024 11:52 PM EDT [facility] Basophils, Absolute 0.08 0.00 - 0.20 10*3/mm3 11/22/2024 11:52 PM EDT [facility] Immature Grans, Absolute 0.05 0.00 - 0.05 10*3/mm3 11/22/2024 11:52 PM EDT [facility] nRBC 0.0 0.0 - 0.2 /100 WBC 11/22/2024 11:52 PM EDT [facility] Blood Structure of left upper limb / Unknown Venipuncture / Unknown 11/22/2024 11:32 AM EDT 11/22/2024 11:32 AM EDT us Jhon Mujica MD LAB BLOOD ORDERABLES Final R esult Performing Organization Address City/[facility]/ZIP Co de Phone Number [facility]
[address] [place] [address], [place] [phone] * Angiotensin Converting Enzyme (11/22/2024 11:24 AM EDT) Angiotensin Converting Enzyme 61 14 - 82 U/L 11/24/2024 12:10 PM EDT [facility] Blood Structure of left upper limb / Unknown Venipuncture / Unknown 11/22/2024 11:24 AM EDT 11/22/2024 11:24 AM EDT Narrative [facility] - 11/24/2024 12:10 PM EDT Performed at: [address] [place] [address] [id number] Hadoop Engineer: Chema Grimaldo PhD, Phone: [phone] us Jhon Mujica MD LAB BLOOD ORDERABLES Final R esult Performing Organization Address City/[facility]/ZIP Co de Phone Number [facility] [address] [place] [address], [place] [phone] * (ABNORMAL) Comprehensive Metabolic Panel (11/22/2024 11:24 AM EDT) Glucose 105(H) 65 - 99 mg/dL 11/22/2024 11:59 PM [facility] BUN 7.0 6.0 - 20.0 mg/dL 11/22/2024 11:59 PM [facility] Creatinine 0.96 0.57 - 1.00 mg/dL 11/22/2024 11:59 PM [facility] Sodium 144 136 - 145 mmol/L 11/22/2024 11:59 PM [facility] Potassium 4.6 3.5 - 5.2 mmol/L 11/22/2024 11:59 PM [facility] Chloride 107 98 - 107 mmol/L 11/22/2024 11:59 PM [facility] CO2 22.9 22.0 - 29.0 mmol/L 11/22/2024 11:59 PM [facility] Calcium 9.5 8.6 - 10.5 mg/dL 11/22/2024 11:59 PM [facility] Total Protein 6.5 6.0 - 8.5 g/dL 11/22/2024 11:59 PM [facility] Albumin 3.6 3.5 - 5.2 g/dL 11/22/2024 11:59 PM [facility] ALT (SGPT) 24 1 - 33 U/L 11/22/2024 11:59 PM [facility] AST (SGOT) 30 1 - 32 U/L 11/22/2024 11:59 PM [facility] Alkaline Phosphatase 121(H) 39 - 117 U/L 11/22/2024 11:59 PM [facility] Total Bilirubin 0.2 0.0 - 1.2 mg/dL 11/22/2024 11:59 PM [facility] Globulin 2.9 gm/dL 11/22/2024 11:59 PM [facility] A/G Ratio 1.2 g/dL 11/22/2024 11:59 PM [facility] BUN/Creatinine Ratio 7.3 7.0 - 25.0 11/22/2024 11:59 PM EDT [facility] Anion Gap 14.1 5.0 - 15.0 mmol/L 11/22/2024 11:59 PM EDT [facility] eGFR 70.0 >60.0 mL/min/1.7 3 11/22/2024 11:59 PM EDT [facility] Blood Structure of left upper limb / Unknown Venipuncture / Unknown 11/22/2024 11:24 AM EDT 11/22/2024 11:24 AM EDT Narrative [facility] - 11/22/2024 11:59 PM EDT [...] ORDERABLES Final R esult [facility]
[address] [place] [address], * CT Chest Without Contrast Diagnostic (03/12/2024 2:45 PM EST) Anatomical Region Laterality Modality Chest N/A Computed Tomogra phy 03/15/2024 8:13 AM EST Impressions 03/15/2024 8:15 AM EST Impression: 1. No acute cardiopulmonary process. Stable scarring and calcified nodes. 2. Ancillary findings as described above. Electronically Signed: Betsey Bocanegra MD 03/15/2024 8:15 AM EST Workstation ID: [id number] Narrative 03/15/2024 8:[address] CHEST [...] MD 03/15/2024 8:15 AM EST Workstation ID: [id number] Alberta Perez APRN IMG CT ORDERABLES Final Resu lt from Last 3 Months or Most Recently Relevant to Health Maintenance Insurance [id number] Member Subscriber Plan / Payer (Ef fective 2024-Present) Name:Nora Urbano Relation to Subscriber:Self Name:Nora Urbano Payer ID:[id number] Group ID:Not on file Type:Not on file Address: [address] MEDICARE ADVANTAGE [facility] HMO Advance Directives * CPR (Attempt to Resuscitate) (Latest Code Status on File) Date Activated Date Inactivated Comments 11/21/2017 3:14 PM 11/25/2017 1:43 PM Question Answer Comments Code Status (Patient has no pulse and is not breathing): CPR (Attempt to Resuscitate) Medical Interventions (Patie nt has pulse or is breathing): Full Care Teams Health Records Technology Teacher Relationship Specialty Start Date End Date Sonia Jerez APRN [address] [facility] [address] [place] [address] PCP - General Family Medicine 01/03/20
--- OUTSIDE RECORDS SUMMARY | 2025-02-21 13:52 | XMS_ITS | Clinical Summary ---
Author Organization Healthcare Address [address] [place] [address] Care Team Providers Care Project Manager Interior Design Name Role Phone Jean Carlos Adams MD [...] of Treatment Not on file Care Teams Project Manager Interior Design Relationship Specialty Start Date End Date Jean Carlos Adams MD [address] [place] [address] PCP - General 08/11/20
--- OUTSIDE RECORDS SUMMARY | 2025-02-21 13:52 | XMS_ITS | Encounter Summary ---
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 Not on file Not on file documented as of this encounter Miscellaneous Notes * Telephone Encounter - [facility] - 02/08/2025 11:12 AM EST Patient Call Reason for call: Upcoming Outcome of call: Broadcast call made Additional Notes: Automated Message Reminder documented in this encounter Plan of Treatment Upcoming Encounters Date Type Department Care Team (Late st Contact Info) Description 04/25/2025 9:00 AM EST Procedure visit [facility] PULMONARY & CRITICAL CARE MEDICINE [address] [facility] [place] [address] 04/25/2025 9:30 AM EST Office Visit [facility] PULMONARY & CRITICAL CARE MEDICINE [address] [facility] [place] [address] Jhon Mujica MD [address] [place] [address] 11/28/2025 1:30 PM EDT Office Visit [facility] [address] [facility] [address] [place] [address] You Aldridge III, MD [address] [facility] [address] [place] [address] documented as of this encounter Visit Diagnoses Not on filedocumented in this encounter Care Teams Food Service Specialist Relationship Specialty Start Date End Date Sonia Jerez APRN [address] [facility] [address] [place] [address] PCP - General Family Medicine 01/03/20 documented as of this encounter
[2025-02-21 14:05] LABS: Hematocrit 43.1 % (37.0-47.0); Hemoglobin 14.1 g/dL (12.2-16.2); Immature Granulocytes % 0.4 %; Mean Corpuscular HGB Conc 32.7 g/dL (31.8-35.4); Mean Corpuscular Hemoglobin 32.0 pg (27.0-31.2); Mean Corpuscular Volume 98.0 fl (81-99); Nucleated Red Blood Cells % 0 %; Platelet Count 314 K/mm3 (142-424); Red Blood Count 4.40 M/mm3 (4.20-5.40); Red Cell Distribution Width-SD 48.9 fL; White Blood Count 14.4 K/mm3 (4.8-10.8)
[2025-02-21 14:33] LABS: Alanine Aminotransferase 21 U/L (12-78); Albumin Level 3.9 g/dl (3.5-5.0); Albumin/Globulin Ratio 1.7 (1.1-1.8); Alkaline Phosphatase 100 U/L (38-126); Anion Gap 8.8 mEq/L (5-15); Aspartate Amino Transferase 35 U/L (14-36); Bilirubin,Total 0.5 mg/dl (0.2-1.3); Blood Urea Nitrogen 8 mg/dl (7-17); Calcium 9.7 mg/dl (8.4-10.2); Carbon Dioxide 27 mmol/L (22.0-30.0); Chloride 103 mmol/L (98-107); Cholesterol 177 mg/dl (140-200); Creatinine,Serum 1.00 mg/dl (0.52-1.04); Estimated Glomerular Filt Rate 58 ml/min (>60); GFR (African American) 70 ML/MIN (>60); Globulin 2.3 g/dL (1.3-3.2); Glucose 118 mg/dl (74-100); HDL Cholesterol 43 mg/dl (40-60); Potassium 3.8 mmoL/L (3.5-5.1); Sodium 135 mmol/L (136-145); Total Protein,Serum 6.2 g/dl (6.3-8.2)
[2025-02-21 14:34] LABS: Triglycerides 401 mg/dl (30-150)
[2025-02-21 14:50] LABS: 25-OH Vitamin D, Total 68.6 ng/mL (30-100)
[2025-02-21 14:59] LABS: Hemoglobin A1C 5.6 % (4.0-6.0)
[2025-02-21 15:06] LABS: Thyroid Stimulating Hormone 0.69 uIU/mL (0.465-4.68)
== END 2025-02-21 23:59 | disposition home or self-care (01) ==
LOC: LAB 13:40
PROVIDERS: PCP Nurse Practitioner Family; Visit Provider Nurse Practitioner Family
DX: E78.2 Mixed hyperlipidemia (principal); R63.5 Abnormal weight gain; D86.0 Sarcoidosis of lung; D84.821 Immunodeficiency due to drugs; E04.9 Nontoxic goiter, unspecified
CPT/HCPCS: 36415; 80053; 80061; 82306; 83036; 84443; 85025